=== PATIENT | female | born 1940 | race Caucasian/White ===

== ENCOUNTER 2020-07-02 11:45 | Outpatient (CLI) | payer MEDICARE, SELFPAY ==
--- NOTE | ~2020-07-02 | MR_ITS ---
EXAMINATION: MR knee LT wo/w con DATE: 07/02/2020 13:00 INDICATION: Left knee pain TECHNIQUE: Magnetic resonance imaging (MRI) of the left knee was performed without intravenous contra st. Sequences included coronal PD-weighted FSE, coronal PD-weighted FS FSE, sagittal T2-weighted FSE , sagittal PD-weighted FS FSE and axial PD weighted fat saturated FSE. COMPARISON: None. FINDINGS: Medial compartment: There is a radial tear extending across inner half of the posterior horn of the medial meniscus. Part ial-thickness cartilage loss with relatively smooth chondral surface along the medial tibial plateau and with regions of mild chondral surface regularity at the anterior weightbearing medial femoral con dyle. Small to moderate-sized marginal osteophytes are present. Lateral compartment: Complex tear of the anterior and posterior horns of the medial meniscus. The lateral meniscal body is deformed and extruded peripherally beyond the margin of the lateral tibial plateau and a large august nal osteophyte along the anterior weightbearing lateral femoral condyle. There is extensive full and near full-thickness cartilage loss throughout the lateral compartment with region of eburnation subar ticular edema with suggestion of early cortical remodeling at the central to posterior aspect of the lateral tibial plateau and along the arteries of the anterior, central and posterior weightbearing la teral femoral condyle. Patellofemoral compartment: Extensive full and near full-thickness cartilage loss with cortical remodeling and scattered foci of subarticular edema along the lateral trochlea and lateral patellar facet. Partial-thickness cartilage loss with chondral fissuring and surface regularity at the medial trochlea and medial patellar facet . Moderate sized marginal osteophytes are present. Ligaments and tendons: Anterior and posterior cruciate ligaments are normal. The medial collateral ligament and fibular sylvester ateral ligament complex are normal. Enthesophytes and mild enthesopathy/tendinopathy at the distal qu adriceps tendon and at the patellar and tibial ends of the patellar tendon. The visualized medial and lateral hamstring tendons as well as the iliotibial band are normal. Fluid: Mild enhancing synovitis at the periphery of a small left knee joint effusion at the suprapatellar po uch. No loose osteochondral bodies identified. Mild prepatellar edema without discrete bursal fluid c ollection. Osseous/other: Patchy red marrow reexpansion in the distal metadiaphyseal region of the femur. Aside from the previo us noted degenerative subarticular increased fluid signal there is otherwise normal marrow signal wit h no fracture or pathologic marrow replacing process. IMPRESSION: 1. Small radial tear at the posterior horn of the medial meniscus. 2. Complex lateral meniscal tear with prominent peripheral extrusion of the meniscal body. 3. Tricompartment osteoarthritis, severe with extensive high-grade chondral malacia in the lateral an d patellofemoral compartments and mild with moderate grade chondromalacia in the medial compartment. 4. Mild enthesopathy of the extensor mechanism. 5. Likely reactive small left knee joint effusion. Reviewed, dictated and finalized at location A. IMPRESSION: 1. Small radial tear at the posterior horn of the medial meniscus. 2. Complex lateral meniscal tear with prominent peripheral extrusion of the men iscal body. 3. Tricompartment osteoarthritis, severe with extensive high-grade chondral mal acia in the lateral and patellofemoral compartments and mild with moderate grad e chondromalacia in the medial compartment. 4. Mild enthesopathy of the extensor mechanism. 5. Likely reactive small left knee joint effusion.
[2020-07-02 12:27] LABS: Estimated Glomerular Filt Rate > 60
== END 2020-07-02 11:46 ==
LOC: MICIMG 11:46
PROVIDERS: Visit Provider Nurse Practitioner
DX: S83.232A Complex tear of medial meniscus, current injury, left knee, initial encounter (principal); M17.32 Unilateral post-traumatic osteoarthritis, left knee; S83.242A Other tear of medial meniscus, current injury, left knee, initial encounter; M25.462 Effusion, left knee
CPT/HCPCS: 73723; A9577

== ENCOUNTER 2020-07-18 09:05 | Outpatient (CLI) | payer MEDICARE, SELFPAY ==
--- NOTE | 2020-07-18 | ECG_ITS ---
Measurements Intervals [place] Rate: 75 P: 47 WV: 202 QRS: -1 QRSD: 105 T: 36 QT: 401 QTc: 449 Interpretive Statements SINUS RHYTHM WITH SINUS ARRHYTHMIA INCOMPLETE RIGHT BUNDLE BRANCH BLOCK LOW QRS VOLTAGE IN PRECORDIAL LEADS BASELINE ARTIFACT- II, III BORDERLINE ECG Electronically Signed On 07-18-2020 10:06:04 CDT by Tyshawn Marin D.O.
[2020-07-18 09:28] LABS: Basophils Absolute Auto 0.1 K/mm3 (0.0-0.1); Basophils Percent Auto 0.9 % (0.2-1.2); Eosinophils Absolute Auto 0.4 K/mm3 (0-0.3); Eosinophils Percent Auto 3.4 % (0-4.4); Hematocrit 40.1 % (37.0-47.0); Hemoglobin 12.5 g/dL (12.0-15.0); Immature Granulocyte Absolute 0.06 K/mm3 (0.00-0.031); Immature Granulocyte Percent A 0.5 % (0-0.5); Lymphocytes Absolute Auto 3.78 K/mm3 (0.9-3.2); Lymphocytes Percent Auto 32.3 % (18.3-44.2); Mean Corpuscular HGB Conc 31.2 g/dl (32-36); Mean Corpuscular Hemoglobin 28.8 pg (26-34); Mean Corpuscular Volume 92.4 fl (80-100); Mean Platelet Volume 9.1 fl (7.4-10.4); Monocytes Absolute Auto 0.8 K/mm3 (0.1-0.6); Monocytes Percent Auto 6.8 % (2.6-8.5); Neutrophils Absolute Auto 6.6 K/mm3 (1.3-6.7); Neutrophils Percent Auto 56.1 % (45.5-73.1); Platelet Count Result 392 k/mm3 (150-375); Red Blood Count 4.34 M/mm3 (4.2-5.4); Red Cell Distribution Width 15.6 % (11.5-14.5); White Blood Count 11.7 K/mm3 (4.5-10.0)
[2020-07-18 09:38] LABS: Alanine Aminotransferase 17 U/L (4-35); Albumin Level 4.1 g/dL (3.5-5.1); Alkaline Phosphatase 51 U/L (38-126); Anion Gap 7 mmol/L (8-16); Aspartate Amino Transferase 34 U/L (14-36); Bilirubin,Total 0.5 mg/dL (0.2-1.3); Blood Urea Nitrogen 16 mg/dL (7-17); Calcium 9.5 mg/dL (8.4-10.2); Carbon Dioxide 28 mmol/L (22-30); Chloride 106 mmol/L (98-107); Cholesterol 231 mg/dL (0-200); Estimated Glomerular Filt Rate 60; Glucose 94 mg/dL (65-105); HDL Direct 56 mg/dL; Potassium 4.7 mmol/L (3.4-5.0); Sodium 141 mmol/L (137-145); Triglycerides 153 mg/dL (<150)
[2020-07-18 09:49] LABS: LDL Cholesterol Direct 109 mg/dL
== END 2020-07-18 09:06 | disposition home or self-care (01) ==
PROVIDERS: PCP Family Medicine; Visit Provider Family Medicine
DX: E78.5 Hyperlipidemia, unspecified (principal); Z01.810 Encounter for preprocedural cardiovascular examination; F41.8 Other specified anxiety disorders; I10 Essential (primary) hypertension; I45.10 Unspecified right bundle-branch block
CPT/HCPCS: 36415; 80053; 80061; 84443; 85025; 93005

== ENCOUNTER 2020-07-26 14:50 | Outpatient (CLI) | payer MEDICARE, SELFPAY ==
--- NOTE | ~2020-07-26 | US_ITS ---
EXAMINATION: US carotid duplex BI DATE: 07/26/2020 15:32 INDICATION: Other specified symptoms and signs involving the circulatory and respiratory systems. TECHNIQUE: Grayscale, color Doppler, and pulsed Doppler images of the cervical carotid arteries were obtained. The degree of vessel stenosis is placed in one of the following categories: normal, <50%, 5 0-69%, >=70% but less than near-occlusion, near-occlusion, or total occlusion. Note that percent sten osis relative to normal distal artery lumen diameter is indirectly measured from velocity measurement s as described by Taiwo, et al. Radiology 2003; 229:340-346. COMPARISON: None. FINDINGS: RIGHT: The right common carotid artery (CCA) peak systolic velocity (PSV) is 99 cm/s. The right internal car otid artery (ICA) PSV is 72 cm/s. The right ICA end-diastolic velocity (EDV) is 19 cm/s. The right IC A/CCA PSV ratio is 0.8. Grayscale and color Doppler images yield an estimate of <50% diameter reducti on from plaque in the ICA. There is antegrade flow in the right vertebral artery. LEFT: The left CCA PSV is 89 cm/s. The left ICA PSV is 83 cm/s. The left ICA EDV is 23 cm/s. The left ICA/C CA PSV ratio is 0.9. Grayscale and color Doppler images yield an estimate of <50% diameter reduction from plaque in the ICA. There is antegrade flow in the left vertebral artery. IMPRESSION: 1. <50% stenosis in the right internal carotid artery. 2. <50% stenosis in the left internal carotid artery. Reviewed, dictated and finalized at location A.
== END 2020-07-26 14:51 | disposition home or self-care (01) ==
PROVIDERS: PCP Family Medicine; Visit Provider Nurse Practitioner Family
DX: R09.89 Other specified symptoms and signs involving the circulatory and respiratory systems (principal); I65.23 Occlusion and stenosis of bilateral carotid arteries
CPT/HCPCS: 93880

== ENCOUNTER 2020-08-19 08:05 | Outpatient (CLI) | payer MEDICARE, SELFPAY ==
[2020-08-19 09:53] LABS: Basophils Absolute Auto 0.1 K/mm3 (0.0-0.1); Basophils Percent Auto 0.6 % (0.2-1.2); Eosinophils Absolute Auto 0.3 K/mm3 (0-0.3); Eosinophils Percent Auto 2.3 % (0-4.4); Hematocrit 44.7 % (37.0-47.0); Hemoglobin 13.6 g/dL (12.0-15.0); Immature Granulocyte Absolute 0.06 K/mm3 (0.00-0.031); Immature Granulocyte Percent A 0.4 % (0-0.5); Lymphocytes Absolute Auto 3.59 K/mm3 (0.9-3.2); Lymphocytes Percent Auto 26.1 % (18.3-44.2); Mean Corpuscular HGB Conc 30.4 g/dl (32-36); Mean Corpuscular Hemoglobin 28.5 pg (26-34); Mean Corpuscular Volume 93.7 fl (80-100); Mean Platelet Volume 9.4 fl (7.4-10.4); Monocytes Absolute Auto 0.8 K/mm3 (0.1-0.6); Neutrophils Absolute Auto 8.9 K/mm3 (1.3-6.7); Neutrophils Percent Auto 64.6 % (45.5-73.1); Platelet Count Result 403 k/mm3 (150-375); Red Blood Count 4.77 M/mm3 (4.2-5.4); Red Cell Distribution Width 15.6 % (11.5-14.5); White Blood Count 13.7 K/mm3 (4.5-10.0)
[2020-08-19 09:56] LABS: Add Urine Microscopic? YES; Appearance Urine Cloudy (Clear); Bilirubin Urine Negative (Negative); Blood Urine Negative (Negative); Color Urine Amber (Yellow); Glucose Urine UA Negative (Negative); Ketones Urine Negative (Negative); Leukocyte Esterase Ur 2+ LEU/UL (Negative); Mucus Urine Few /lpf; Nitrate Urine Negative (Negative); Protein Urine 1+ mg/dL (Negative); RBC Urine 0-2 /hpf (0-2); Specific Grav Ur 1.028 (1.001-1.035); Squamous Epithelial Cell Urine Moderate /hpf (Few); Urobilinogen Urine Negative mg/dL (<2.0); WBC Urine 21-30 /hpf
[2020-08-19 10:01] LABS: INR 0.9; Prothrombin Time 12.4 Seconds (11.1-14.7)
[2020-08-19 10:02] LABS: Partial Thromboplastin Time 29.7 SECONDS (22.3-36.8)
[2020-08-19 11:37] LABS: Hemoglobin A1C 5.7 % (<5.7)
[2020-08-19 11:53] LABS: Urine Cotinine NEGATIVE
== END 2020-08-19 08:06 | disposition home or self-care (01) ==
LOC: ANHSURGERY 08:08
PROVIDERS: PCP Family Medicine; Visit Provider Orthopaedic Surgery
DX: M17.12 Unilateral primary osteoarthritis, left knee (principal); Z01.818 Encounter for other preprocedural examination
CPT/HCPCS: 80307; 81001; 83036; 85025; 85610; 85730; 86850; 86900; 86901; 87081; 87086; 87088

== ENCOUNTER 2020-09-05 10:09 | Outpatient (CLI) | payer MEDICARE, SELFPAY ==
--- NOTE | 2020-09-05 | EST_ITS ---
Patient Info Name: Nikia East Age: 80 years : 1940 Gender: Female Ht: 65 in Wt: 205 lbs BSA: 2.10 m2 Exam Date: 09/05/2020 11:44 AM Exam Location: [facility] Stress Patient Status: Outpatient Admit Date: 09/05/2020 Staff Ordering Physician: Felix Landeros MD Attending Provider: Felix Landeros MD Exercise Technologist: Foster Lerma RDCS, RT Exam Type: CA stress fco w NM Study Info A regadenoson stress test was performed. Summary 1. 1. Negative lexiscan stress test for ischemic ST changes by ECG criteria. 2. 2. Baseline hypertension. 3. 3. Nuclear scan to follow and will be reported separately. Please correlate with it. 4. 4. Patient informed of the above results. Protocol: Lexiscan Stress ECG Details Stage: REST Duration (min): 1 min : 6 sec HR (bpm): 82 SBP (mmHg): 161 DBP (mmHg): 94 Stage: REST Duration (min): 14 min : 51 sec HR (bpm): 80 SBP (mmHg): 161 DBP (mmHg): 94 Stage: STAGE 1 Duration (min): 0 min : 59 sec HR (bpm): 91 SBP (mmHg): 161 DBP (mmHg): 94 Stage: RECOVERY Duration (min): 1 min : 0 sec HR (bpm): 94 SBP (mmHg): 184 DBP (mmHg): 79 Stage: RECOVERY Duration (min): 2 min : 0 sec HR (bpm): 88 SBP (mmHg): 184 DBP (mmHg): 79 Stage: RECOVERY Duration (min): 3 min : 0 sec HR (bpm): 84 SBP (mmHg): 173 DBP (mmHg): 82 Stage: RECOVERY Duration (min): 3 min : 16 sec HR (bpm): 84 SBP (mmHg): 173 DBP (mmHg): 82 Rest HR: 80 bpm Peak HR: 95 bpm Rest Sys BP: 161 mmHg Peak Sys BP: 184 mmHg Max Pred HR: 140 bpm % Max Pred HR: 68 % Target HR: 119 bpm Max RPP: 17,480 bpm*mmHg Termination Reason: Completed protocol Cardiac Symptoms: Shortness of breath Total Time: 1 min : 0 sec Rest Clark BP: 94 mmHg Peak Clark BP: 79 mmHg Total Dose: 0.4 mg Resting ECG Sinus rhythm, IRBBB. Stress ECG No ST changes. Arrhythmias None. Report Signatures
--- NOTE | ~2020-09-05 | NM_ITS ---
EXAMINATION: NM fco stress w perfusion DATE: 09/05/2020 13:23 INDICATION: Encounter for preprocedural cardiovascular examination. Hypertension and abnormal EKG inc luding incomplete right bundle branch block. TECHNIQUE: Rest images were obtained following intravenous administration of 10 mCi Tc99m tetrofosmin (Myoview). The patient was infused intravenously with Lexiscan (Regadenoson). Then, 31.8 mCi Tc99m t etrofosmin (Myoview) was administered intravenously, and stress images were obtained. Data was recons tructed into short axis and horizontal and vertical long axis SPECT images. Gated SPECT images were a lso obtained. COMPARISON: None. FINDINGS: There is no definite reversible or fixed perfusion abnormality to suggest ischemia or infar ction. There is normal left ventricular chamber size, wall motion and ejection fraction. Left ventr icular ejection fraction measures >70%. IMPRESSION: 1. Normal myocardial perfusion at rest and during stress. 2. Left ventricular ejection fraction measuring >70%. Reviewed, dictated and finalized at location A.
== END 2020-09-05 10:10 | disposition home or self-care (01) ==
PROVIDERS: PCP Family Medicine; Visit Provider Family Medicine
DX: Z01.810 Encounter for preprocedural cardiovascular examination (principal)
CPT/HCPCS: 78452; 93017; A9502; J2785

== ENCOUNTER 2020-09-30 13:14 | Outpatient (CLI) | payer MEDICARE, SELFPAY ==
[2020-09-30 13:45] LABS: Basophils Absolute Auto 0.1 K/mm3 (0.0-0.1); Basophils Percent Auto 0.9 % (0.2-1.2); Eosinophils Absolute Auto 0.5 K/mm3 (0-0.3); Eosinophils Percent Auto 3.6 % (0-4.4); Hematocrit 45.9 % (37.0-47.0); Hemoglobin 13.9 g/dL (12.0-15.0); Immature Granulocyte Percent A 0.7 % (0-0.5); Lymphocytes Absolute Auto 4.57 K/mm3 (0.9-3.2); Lymphocytes Percent Auto 32.9 % (18.3-44.2); Mean Corpuscular HGB Conc 30.3 g/dl (32-36); Mean Corpuscular Hemoglobin 28.6 pg (26-34); Mean Corpuscular Volume 94.4 fl (80-100); Mean Platelet Volume 9.1 fl (7.4-10.4); Monocytes Absolute Auto 0.9 K/mm3 (0.1-0.6); Monocytes Percent Auto 6.6 % (2.6-8.5); Neutrophils Absolute Auto 7.7 K/mm3 (1.3-6.7); Neutrophils Percent Auto 55.3 % (45.5-73.1); Platelet Count Result 400 k/mm3 (150-375); Red Blood Count 4.86 M/mm3 (4.2-5.4); Red Cell Distribution Width 15.5 % (11.5-14.5); White Blood Count 13.9 K/mm3 (4.5-10.0)
[2020-09-30 13:55] LABS: Albumin Level 4.8 g/dL (3.5-5.1); Anion Gap 12 mmol/L (8-16); Blood Urea Nitrogen 17 mg/dL (7-17); Calcium 10.5 mg/dL (8.4-10.2); Carbon Dioxide 29 mmol/L (22-30); Chloride 104 mmol/L (98-107); Estimated Glomerular Filt Rate 53; Glucose 93 mg/dL (65-105); Sodium 145 mmol/L (137-145)
[2020-09-30 16:16] LABS: Add Urine Microscopic? YES; Appearance Urine Cloudy (Clear); Bacteria Urine Trace /hpf; Bilirubin Urine 2+ (Negative); Blood Urine Negative (Negative); Color Urine Amber (Yellow); Glucose Urine UA Negative (Negative); Hyaline Casts Urine 50+ /lpf; Ketones Urine Negative (Negative); Leukocyte Esterase Ur Trace LEU/UL (Negative); Mucus Urine Few /lpf; Nitrate Urine Negative (Negative); Protein Urine 2+ mg/dL (Negative); RBC Urine 0-2 /hpf (0-2); Squamous Epithelial Cell Urine Many /hpf (Few)
[2020-09-30 16:18] LABS: Specific Grav Ur 1.039 (1.001-1.035)
== END 2020-09-30 13:15 | disposition home or self-care (01) ==
PROVIDERS: PCP Family Medicine; Visit Provider Orthopaedic Surgery
DX: M17.12 Unilateral primary osteoarthritis, left knee (principal); Z01.818 Encounter for other preprocedural examination
CPT/HCPCS: 36415; 80048; 81001; 82040; 85025; 86850; 86900; 86901; 87081; 87086; 87088

== ENCOUNTER 2020-10-09 18:42 | Observation (INO) | payer MEDICARE, SELFPAY ==
[2020-08-19 08:17] VITALS: BMI 34.9
[2020-08-19 09:13] VITALS: BP 135/79; PULSE 80; RESP 16; TEMP 36.8; O2SAT 96
--- NOTE | 2020-09-27 09:59 | PC.NURSE ---
PT STATES NO CHANGE IN HEALTH HX SINCE LAST INTERVIEW ON 08/19/20
[2020-10-08] VITALS (16 sets, daily range): BP systolic 120–184; BP diastolic 65–99; PULSE 75–92; RESP 10–21; TEMP 35.7–37.9; O2SAT 94–100
[2020-10-08] MEDS: ACETAMINOPHEN 500 MG TABLET 1000 MG PO (06:23)
--- NOTE | 2020-10-08 06:41 | WPDANESEPPF ---
Anes - Initial Pre Proc Eval Procedure: Operation Date: 10/08/20 07:30 Proposed Procedures p Left Total Knee Arthroplasty - Ean Dan MD Date/Time: 10/08/20 06:41 Surgeon: Ean Dan MD Pre Op Diagnosis: left knee djd Patient Data Age: 80 Gender: F Height: 1.64 m Weight: 93.1 kg Last Vital Signs Temp 37.1 C 10/08/20 06:07 Pulse 84 10/08/20 06:07 Resp 16 10/08/20 06:07 BP 155/85 H 10/08/20 06:07 Pulse Ox 96 10/08/20 06:07 Allergies Allergy/AdvReac Type Severity Reaction Status Date / Time No Known Allergies Allergy Verified 10/08/20 06:24 Home Medications Medication Instructions Recorded Confirmed Type gabapentin 100 mg capsule 100 mg PO BID 02/27/19 10/08/20 History naproxen 500 mg tablet 500 mg PO BID PRN #60 tablet 06/12/20 10/08/20 Rx trazodone 100 mg tablet See Rx Instructions .ROUTE 06/13/20 10/08/20 Rx .COMPLEX #45 tablet baclofen 20 mg tablet 20 mg PO TID tablet 07/16/20 10/08/20 History hydrocodone 10 mg-acetaminophen 1 tablet PO Q6H PRN 07/16/20 10/08/20 History 325 mg tablet ropinirole 1 mg tablet See Rx Instructions .ROUTE 07/16/20 10/08/20 History .COMPLEX tablet simvastatin 20 mg tablet See Rx Instructions .ROUTE 07/18/20 10/08/20 Rx .COMPLEX #90 tablet lisinopril 10 mg tablet See Rx Instructions .ROUTE 07/26/20 10/08/20 Rx .COMPLEX #90 tablet aspirin 325 mg PO DAILY 08/19/20 10/08/20 History vit-ferrous sulfat-FA 2 tablet PO DAILY 08/19/20 10/08/20 History [] vitamin B complex [B Complex] 1 cap PO DAILY 08/19/20 10/08/20 History levothyroxine 75 mcg tablet 75 mcg PO DAILY #90 tablet 09/10/20 10/08/20 Rx duloxetine 60 mg PO QNOON 09/27/20 10/08/20 History furosemide 20 mg tablet 20 mg PO DAILY #90 tablet 09/27/20 10/08/20 Rx amoxicillin 500 mg capsule 500 mg PO BID #20 cap 10/01/20 10/08/20 Rx mupirocin 2 % topical ointment 1 applic TOPICAL BID #15 g 10/02/20 10/08/20 Rx Patient hx anesthesia problems: none Family hx anesthesia problems: none [facility] Past Medical History Medical History Arthritis Constipation Depression with anxiety Dysphagia Essential (primary) hypertension Generalized anxiety disorder High cholesterol Hoarseness Hyperlipidemia, unspecified Hypertension Hypothyroidism, unspecified Insomnia Restless legs syndrome Sleep disorder Urinary frequency Wears glasses Surgical History Surgical History History of back surgery History of foot surgery Left foot 2014 Status post right foot surgery (~11/2018) Family History Family History Father Family history of pancreatic cancer Other Asthma Family history of malignant neoplasm of breast in first degree relative Family history of migraine headaches Social History Social History Smoking status: Never smoker Additional smoking assessment comments: DENIES ANY FORM OF TOBACCO USE Alcohol intake: never Substance use: never Substance use type: does not use Living arrangements: with family Gender identity (if verbalized by the patient): Female Spiritual care concerns: No Anes - Eval Final PreProcedure Day of Procedure 10/08/20 06:41 Patient weight: obese Heart: regular rate and rhythm Lungs: clear to auscultation Airway: Mallampati scale class II Neurological: alert and oriented Last oral intake: >/= 8 hours ASA classification: III Emergent: no Anesthetic plan: proceed Anesthesia type and monitoring: general LMA and standard monitoring Informed Consent: The patient's anesthetic plan and its attendant risks and benefits were discussed with the patient/family/POA. Questions were solicited and answers provided to the satisfaction of the patient/family/POA.
[2020-10-08] MEDS: LACTATED RINGERS 1,000 ML 30 ML IV CONT ×2 (06:43→10:26)
--- NOTE | 2020-10-08 07:22 | WPDHPUPDATE1 ---
History and Physical Update Update Date/Time: 10/08/20 07:22 History and Physical has been reviewed, including an updated exam of the patient. There are NO changes in the patient's condition. Risks, benefits, and alternatives have been discussed and questions answered. Patient agrees to proceed with procedure.
[2020-10-08] MEDS: TRANEXAMIC ACID 1,000MG/ISO100 1,000 MG/100 ML BAG 200 MG IVPB (07:30)
--- NOTE | 2020-10-08 07:43 | WPDANESPNB ---
Anes - Peripheral Nerve Block Date/Time: 10/08/20 07:43 I have discussed with the patient/family/POA the placement of a peripheral nerve block for post-operative pain management, including associated risks, benefits, complications, and side effects. Alternative methods of post-operative analgesia were detailed. Questions were solicited and answers provided to the satisfaction of the patient/family/POA. Time-Out: A pre-procedural Time-Out was completed immediately before starting the procedure and confirmed: Patient Identification, Site, Procedure, Patient Position and the Availability of Requisite Equipment. Clinical Indications: Acute post-operative pain management requested by the operative surgeon. Nerve Block Insertion Note Anes-nerve block: femoral left Patient position: supine Needle: 22 gauge, stimulating, insulated echogenic needle. Needle length: 50 mm Technique: nerve stimulation lost at (mA) (0.4) Injectate: bupivacaine 0.5% with epi 5 mcg/ml (30cc) Observations: tolerated well Complications: none Procedure start time:: 747 Procedure end time:: 741
[2020-10-08] MEDS: ceFAZolin 2 GM/D5W 50 ML 2 GM/50 ML BAG IVPB ×3 (07:46→23:40)
[2020-10-08] MEDS: GENTAMICIN BONE CEMENT REFOBACIN 1 EACH TOPICAL (09:03)
--- NOTE | 2020-10-08 09:04 | SUR.OPER ---
Biomet Bone Cement Bar x 1 mixed with Refobacin Bone Cement R x 1 on Sterile Field
[2020-10-08] MEDS: TRANEXAMIC ACID 1,000 MG/10 ML AMPUL 1000 MG IV PUSH (09:28)
--- NOTE | 2020-10-08 10:34 | W.PM.PROC2 ---
Procedure Note - Detailed Date of Procedure 10/08/20 Pre-op Diagnosis left knee djd Post-op Diagnosis same Procedure Performed L TKA Surgeon Ean Dan MD Anesthesia general Description of Procedure THE LEFT KNEE WAS PREPPED AND DRAPED IN THE STERILE FASHION. THERE WAS A 10 DEGREE FLEXION CONTRACTURE. A MIDLINE SKIN INCISION WAS MADE. A MEDIAL PARAPATELLAR ARTHROTOMY WAS MADE. THE PATELLA WAS EVERTED. THERE WAS TRICOMPARTMENT DJD. THERE WAS MINIMAL PATELLA DJD. AN INTRAMEDULLARY COMPA WAS PLACED IN THE FEMUR. A DISTAL FEMORAL CUT WAS MADE IN 5 DEGREES OF VALGUS REMOVING APPROXIMATELY 9 MM OF BONE FROM THE DISTAL FEMUR. THE FEMUR WAS SIZED TO 62.5. A 62.5 FEMORAL CUTTING BLOCK WAS PLACED IN 3 DEGREES OF EXTERNAL ROTATION AND IN ALIGNMENT WITH NARCISA'S LINE AND THE TRANSEPICONDYLAR AXIS. ANTERIOR POSTERIOR AND CHAMFER CUTS WERE MADE. THE CUTS WERE EXCELLENT. NEXT AN INTRAMEDULLARY CUTTING GUIDE WAS PLACED IN THE TIBIA. A TRANS TIBIAL CUT WAS MADE ALONG THE LONG AXIS OF THE TIBIA. APPROXIMATELY 10 MM OF BONE WAS REMOVED FROM THE HIGH SIDE OF THE TIBIA. THE TIBIA WAS THEN PLANED TO A SMOOTH SURFACE. POSTERIOR FEMORAL OSTEOPHYTES WERE REMOVED FROM THE FEMORAL CONDYLES. A 67 TIBIAL TRIAL WAS PLACED IN ALIGNMENT WITH THE 1/3 MEDIAL ASPECT OF THE TIBIAL TUBERCLE. THEN A 62.5 FEMORAL TRIAL COMPONENT WAS PLACED. BOTH HAD EXCELLENT FITS. EVENTUALLY A 12 MM POLYETHYLENE TRIAL COMPONENT WAS PLACED. THE KNEE WAS TAKEN THROUGH A RANGE OF MOTION. THE KNEE CAME OUT TO FULL EXTENSION. THERE WAS NO ABNORMAL TILT TO THE PATELLA. THERE WAS GOOD A/P AND VARUS/VALGUS STABILITY. THERE WAS NO EXCESSIVE ROLL BACK WITH FLEXION. THE TRIAL COMPONENTS WERE REMOVED. THEN A 62.5 FEMORAL COMPONENT AND 67 TIBIAL COMPONENT WITH A 12 POLYETHYLENE COMPONENT WERE CEMENTED INTO PLACE. ONCE THE CEMENT WAS HARD THE KNEE WAS TAKEN THROUGH A ROM AGAIN AND FOUND TO BE STABLE WITH NO PATELLA TILT NO EXCESSIVE ROLL BACK WITH FLEXION AND GOOD STABILITY WITH COMPLETE AND FULL EXTENSION. THE KNEE WAS IRRIGATED WITH STERILE BETADINE AND WATER FOR ABOUT 3 MINUTES. THE BLEEDERS WERE CAUTERIZED. THE ARTHROTOMY WAS REPAIRED WITH NUMBER 1 VICRYL. THE SUB CUTANEOUS LAYER WITH 2-0 VICRYL AND THE SKIN WITH [place]. THE WOUND WAS WASHED AND A STERILE DRESSING WAS APPLIED. PATIENT WAS EXTUBATED. Estimated Blood Loss -200.0 Pathology none sent Complications No immediate complications Condition stable Disposition PACU
[2020-10-08] MEDS: fentaNYL CITRATE INJ (*CRX) 100 MCG/2 ML VIAL 25 MCG IV PUSH ×5 (10:35→11:09)
--- NOTE | 2020-10-08 11:59 | ADMGEN ---
This patient, Nikia East, was admitted to Medical Room 246-01. Patient/family oriented to hospital policies and general routines including ID bracelet, bed and alarms, visiting hours, pain management, procedures, bathroom and other care routines, personal items, smoking policy, room service/diet, and visiting hours. Information on how to activate the Rapid Response Team has been discussed. Patient/Family are encouraged to report perceived risks to care and to ask questions if they do not understand what they are told or what they should do.
[2020-10-08] MEDS: oxyCODONE HCL (*CRX) 5 MG TAB IR 10 MG PO ×3 (13:54→23:40)
--- NOTE | 2020-10-08 14:30 | WPDCN ---
Assessment and Plan Assessment and plan (1) Degenerative joint disease of left knee: Code(s): M17.12 - Unilateral primary osteoarthritis, left knee Status: Acute Assessment and Plan: Postoperative day 0 status post left total knee arthroplasty. Wound care, pain control, and DVT prophylaxis deferred to Dr. Dan. Agree with early ambulation and physical therapy. Baseline labs in a.m. (2) Hypertension: Code(s): I10 - Essential (primary) hypertension Status: Chronic Assessment and Plan: Blood pressures reviewed. Elevated postoperatively likely due to pain but have improved. Resume antihypertensives and monitor. (3) Hyperlipidemia: Code(s): E78.5 - Hyperlipidemia, unspecified Status: Acute Assessment and Plan: Continue statin check LFTs in a.m. (4) Hypothyroidism: Code(s): E03.9 - Hypothyroidism, unspecified Status: Acute Assessment and Plan: Continue levothyroxine. TSH was normal in April 2020. (5) Depression with anxiety: Code(s): F41.8 - Other specified anxiety disorders Status: Acute Assessment and Plan: Continue duloxetine. Additional Plan Thank you for allowing us to participate in this patient's care. Please do not hesitate to contact us with any questions. Supervising physician for this medical consultation is Dr. Osmel Sotomayor. HPI Data of Consult Date/Time: 10/08/20 14:30 Requesting Physician: Ean Dan MD Primary Care Provider: Malathi Landeros MD Consult Narrative Narrative: This is an 80-year-old female with degenerative joint disease, hypertension, hyperlipidemia, and hypothyroidism whom hospitalist service has been consulted for management of her medical conditions postoperatively. She has had longstanding pain in her left knee, not amenable to conservative outpatient treatment, and less she elected for replacement today. Her surgery was performed under general anesthesia with no immediate complications documented and an estimated blood loss of 200 mL. She has been doing well postoperatively and has been up to the chair and working with physical therapy. She has minimal pain at the time my evaluation. She denies paresthesias, skin color, and temperature changes distal to the surgical site. She also denies postoperative fever, chills, chest pain, shortness of breath, nausea, and vomiting. Review of Systems Review of Systems: Narrative: Twelve systems were reviewed with pertinent positives and negatives as per HPI. No fever, chills, or sweats. No recent cold or flu symptoms. She denies exposure to those positive for COVID-19. No exertional chest pain or shortness of breath. No history of venous thromboembolism. She believes her chronic medical conditions are well controlled on home medication. except as documented, all other systems were reviewed and are negative. [facility] Past Medical History Medical History (Updated 10/08/20 @ 14:39 by Bianca Grande PA-C) Arthritis Chronic back pain Degenerative disc disease Depression with anxiety Hyperlipidemia Hypertension Hypothyroidism Insomnia Restless legs syndrome Surgical History Surgical History (Updated 10/08/20 @ 14:38 by Bianca Grande PA-C) History of appendectomy History of back surgery Lumbar spine surgery for herniated disc. History of section History of cholecystectomy History of orthopedic surgery Status post left foot surgery ORIF left foot fracture in 2013. Status post right foot surgery (~11/2018) Family History Family History Father Family history of pancreatic cancer Family history of migraine headaches Daughter Asthma Sibling Family history of malignant neoplasm of breast in first degree relative Mother Family histo
[2020-10-08] MEDS: DULoxetine HCL 60 MG CAPSULE.DR PO (16:01)
[2020-10-08] MEDS: MUPIROCIN 2% OINT 22 GM TUBE 1 APPLIC TOPICAL (16:01)
[2020-10-08] MEDS: rOPINIRole HCL 1 MG TABLET BY MOUTH (16:01)
[2020-10-08] MEDS: CELECOXIB 200 MG CAPSULE PO (16:01)
[2020-10-08] MEDS: DOCUSATE SODIUM 100 MG CAPSULE PO (16:01)
[2020-10-08] MEDS: BACLOFEN 10 MG TABLET 20 MG PO (16:01)
[2020-10-08] MEDS: GABAPENTIN 100 MG CAPSULE PO (16:02)
[2020-10-08] MEDS: oxyCODONE/ACETAMINOPHEN (*CRX) 5-325 MG TABLET 1 TABLET PO (20:20)
[2020-10-08] MEDS: ASPIRIN 325 MG ENTERIC TABLET PO (21:22)
[2020-10-08] MEDS: FAMOTIDINE 20 MG TABLET PO (21:22)
[2020-10-08] MEDS: traZODone HCL 50 MG TABLET BY MOUTH (21:22)
[2020-10-09] VITALS (8 sets, daily range): BP systolic 110–136; BP diastolic 58–89; PULSE 94–102; RESP 14–20; TEMP 36.1–36.6; O2SAT 91–97
--- NOTE | ~2020-10-09 | XR_ITS ---
EXAMINATION: XR knee LT 2V DATE: 10/08/2020 10:38 INDICATION: Total left knee arthroplasty. Postop. TECHNIQUE: 2 views of left knee were obtained. COMPARISON: Left knee radiographs 07/08/20 FINDINGS: There is a total left knee arthroplasty without patellar resurfacing in near-anatomic align ment. No fracture. There is gas in the knee joint and soft tissues, consistent with recent surgery. A nterior skin elicia are noted. IMPRESSION: 1. Total left knee arthroplasty in near-anatomic alignment. Reviewed, dictated and finalized at location A.
--- NOTE | ~2020-10-09 | CT_ITS ---
EXAMINATION: CT brain wo con EXAM DATE: 10/09/2020 22:16 INDICATION: Temporary change in awareness. TECHNIQUE: Spiral CT of the head was performed without contrast. Axial, coronal and sagittal images were reviewed. The dose-length product (DLP) for this examination was 681.00 mGy-cm. The exposure w as tailored according to patient size, and iterative reconstruction (ASIR) was used as additional dos e reduction technique. There is no prior study for comparison. FINDINGS: There is no acute intraparenchymal hemorrhage. No evidence of intraparenchymal brain mass lesion. No evidence of acute infarction. Please note that initial head CT has limited sensitivity f or small or acute infarctions. There is mild periventricular and subcortical hypodensity, nonspecific but probably related to small vessel ischemic disease. There is mild to moderate prominence of the sulci and ventricles related to cerebral atrophy. There is intracranial carotid arteriosclerosis. There are no extra-axial collections. There is no mass effect or midline shift. Patient has had bi lateral ocular lens surgery. Soft tissue is unremarkable. The visualized sinuses and mastoid air ce lls are well aerated. IMPRESSION: 1. No acute intracranial findings. 2. Chronic age related findings. Reviewed, dictated and finalized at location A.
[2020-10-09] MEDS: oxyCODONE/ACETAMINOPHEN (*CRX) 5-325 MG TABLET 1 TABLET PO (05:09)
[2020-10-09] MEDS: LEVOTHYROXINE SODIUM 75 MCG TABLET PO (05:25)
[2020-10-09 06:18] LABS: Basophils Absolute Auto 0.1 K/mm3 (0.0-0.1); Basophils Percent Auto 0.5 % (0.2-1.2); Eosinophils Percent Auto 0.1 % (0-4.4); Hematocrit 38.5 % (37.0-47.0); Hemoglobin 11.8 g/dL (12.0-15.0); Immature Granulocyte Absolute 0.11 K/mm3 (0.00-0.031); Immature Granulocyte Percent A 0.7 % (0-0.5); Lymphocytes Absolute Auto 4.29 K/mm3 (0.9-3.2); Lymphocytes Percent Auto 26.8 % (18.3-44.2); Mean Corpuscular HGB Conc 30.6 g/dl (32-36); Mean Corpuscular Hemoglobin 28.9 pg (26-34); Mean Corpuscular Volume 94.1 fl (80-100); Mean Platelet Volume 9.5 fl (7.4-10.4); Monocytes Absolute Auto 1.9 K/mm3 (0.1-0.6); Monocytes Percent Auto 11.5 % (2.6-8.5); Neutrophils Absolute Auto 9.7 K/mm3 (1.3-6.7); Neutrophils Percent Auto 60.4 % (45.5-73.1); Platelet Count Result 342 k/mm3 (150-375); Red Blood Count 4.09 M/mm3 (4.2-5.4)
[2020-10-09 06:30] LABS: Alanine Aminotransferase 42 U/L (4-35); Albumin Level 3.9 g/dL (3.5-5.1); Alkaline Phosphatase 41 U/L (38-126); Anion Gap 9 mmol/L (8-16); Aspartate Amino Transferase 86 U/L (14-36); Bilirubin,Total 0.5 mg/dL (0.2-1.3); Blood Urea Nitrogen 19 mg/dL (7-17); Carbon Dioxide 23 mmol/L (22-30); Chloride 106 mmol/L (98-107); Estimated CRCL calculation 55 ml/min; Estimated Glomerular Filt Rate > 60; Glucose 112 mg/dL (65-105); Potassium 4.1 mmol/L (3.4-5.0); Sodium 138 mmol/L (137-145)
--- NOTE | 2020-10-09 07:39 | WPDANESPN ---
Anes - Prog Note Post-Op Date/Time: 10/09/20 07:39 Cardiovascular status: normal Respiratory status: normal Airway patency: baseline Mental status: baseline Post-Op hydration status: normal Vital Signs: Last Vital Signs Temp 36.1 C L 10/09/20 05:18 Pulse 98 10/09/20 05:18 Resp 18 10/09/20 05:18 BP 125/71 10/09/20 05:18 Pulse Ox 96 10/09/20 05:18 Pain Score (VAS): 3 I/O: Intake & Output 10/08/20 10/08/20 10/09/20 15:59 23:59 07:59 Intake Total 1240 540 440 Balance 1240 540 440 Laboratory Tests 10/09/20 05:32 10/09/20 05:32 10/09/20 10/09/20 05:32 05:32 WBC 16.0 H RBC 4.09 L Hgb 11.8 L Hct 38.5 MCV 94.1 MCH 28.9 MCHC 30.6 L RDW 16.0 H Plt Count 342 MPV 9.5 Immature Gran % (Auto) 0.7 H Neut % (Auto) 60.4 Lymph % (Auto) 26.8 Woodruff % (Auto) 11.5 H Eos % (Auto) 0.1 Baso % (Auto) 0.5 Lymph # (Auto) 4.29 H Woodruff # (Auto) 1.9 H Eos # (Auto) 0.0 Baso # (Auto) 0.1 Abs Immat Gran (auto) 0.11 H Absolute Neuts (auto) 9.7 H Absolute Nucleated RBC 0.0 Nucleated RBC % 0.0 Sodium 138 Potassium 4.1 Chloride 106 Carbon Dioxide 23 Anion Gap 9 BUN 19 H Creatinine 0.80 Estim Creat Clear Calc 55 Estimated GFR > 60 Glucose 112 H Calcium 9.0 Total Bilirubin 0.5 Direct Bilirubin 0.0 AST 86 H ALT 42 H Alkaline Phosphatase 41 Total Protein 7.0 Albumin 3.9 Post-procedural complaints: none Patient Feedback: Patient satisfied with anesthetic care.
--- NOTE | 2020-10-09 07:53 | PM.IMPN ---
Progress Note: A&P Assessment and Plan (1) Degenerative joint disease of left knee: Code(s): M17.12 - Unilateral primary osteoarthritis, left knee Status: Acute Assessment and Plan: Postoperative day 1 status post left total knee arthroplasty. Wound care, , and DVT prophylaxis deferred to Dr. Dan. pain control: Percocet 1 tab PO Q4hr , Oxycodone 10mg PO Q4hr, Acetaminophen 1000mg PO Q6hr PRN Antiemetic: Zofran 4mg IV Q4hr PRN Vancomycin 1000mg IV Q12hr, Cefazolin 2gm Q8hr DVT: Aspirin 325mg PO Q12hr PT/OT (2) Hypertension: Code(s): I10 - Essential (primary) hypertension Status: Chronic Assessment and Plan: Blood pressures 125/71 Continue home furosemide 20mg PO, Lisinopril 10mg PO Trend blood pressure Adjust medication as needed (3) Hyperlipidemia: Code(s): E78.5 - Hyperlipidemia, unspecified Status: Acute Assessment and Plan: Continue simvastatin 20mg PO daily Labs were high in July Will check in the am Adjust as needed (4) Hypothyroidism: Code(s): E03.9 - Hypothyroidism, unspecified Status: Acute Assessment and Plan: Continue levothyroxine 75mcg PO Daily. TSH 2.150 on 07/18/20 (5) Depression with anxiety: Code(s): F41.8 - Other specified anxiety disorders Status: Acute Assessment and Plan: Continue duloxetine 60mg PO Daily, Trazodone 50mg PO at HS Time Spent With Patient Time with patient: 25 - 35 minutes Subjective Date/time seen: 10/09/20 09:35 Interval history: This is an 80-year-old female with degenerative joint disease, hypertension, hyperlipidemia, and hypothyroidism whom hospitalist service has been consulted for management of her medical conditions postoperatively. Today is POD 1. She has been up to the bathroom and walked the snider already this morning. She complains of having some severe pain which she rates a 10/10. She is currently laying in bed, and just finished up with therapy. She does state that she has some constipation, which she stated she battles in general. I would say it is from the long time use of narcotics. She is looking real good and is planning to DC home with home health. She denies chest pain, shortness of breath, nausea, vomiting, decreased appetite, sweats, or chills. Review of Systems Review of Systems: All systems reviewed & are unremarkable except as noted in HPI and below Exam Const: General: cooperative, healthy appearing, comfortable, no acute distress, well developed, alert, awake and Physically active Nutritional Appearance: well nourished and overweight Orientation/consciousness: oriented to person, oriented to place, oriented to time and patient oriented x3 Limitations: no limitations HENMT: Head: normal to inspection Ears: hearing grossly normal bilaterally General nose exam: Normal external nose present Mouth: Yes Normal oral and palatal mucosa present, Yes lip normal and Yes tongue normal Teeth and gingiva: abnormal tooth and associated gingiva and poor dentition Eyes: General: appearance normal, both eyes and all related structures Neck: Neck: normal visual inspection, full ROM, trachea midline and supple Chest: Chest palpation & inspection: normal inspection of the chest Resp: Effort & Inspection: normal respiratory effort and able to speak in complete sentences Auscultation: clear to auscultation bilaterally Cardio: Jugular venous distension: no JVD Rate: regular rate Rhythm: regular rhythm Heart sounds: S1 normal heart sound present and S2 normal heart sound present Peripheral pulses: Peripheral pulses 2+ throughout GI: Inspection: normal to inspection GI Palp: Yes Soft to palpation and No Tenderness to palpation present (GI) Auscultation: normal bowel sounds Skin: General skin exam: normal color and no rashes or lesions noted Lesions: no lesions Rashes: no rashes Trauma: no lacerations or abrasions
[2020-10-09] MEDS: ceFAZolin 2 GM/D5W 50 ML 2 GM/50 ML BAG IVPB (08:49)
[2020-10-09] MEDS: CELECOXIB 200 MG CAPSULE PO ×2 (08:49→16:09)
[2020-10-09] MEDS: ASPIRIN 325 MG ENTERIC TABLET PO (08:49)
[2020-10-09] MEDS: rOPINIRole HCL 1 MG TABLET BY MOUTH ×2 (08:50→16:08)
[2020-10-09] MEDS: MUPIROCIN 2% OINT 22 GM TUBE 1 APPLIC TOPICAL ×2 (08:50→16:09)
[2020-10-09] MEDS: lisinopriL 10 MG TABLET BY MOUTH (08:50)
[2020-10-09] MEDS: BACLOFEN 10 MG TABLET 20 MG PO ×3 (08:50→16:09)
[2020-10-09] MEDS: FAMOTIDINE 20 MG TABLET PO (08:50)
[2020-10-09] MEDS: FUROSEMIDE 20 MG TABLET PO (08:50)
[2020-10-09] MEDS: SIMVASTATIN 20 MG TABLET BY MOUTH (08:50)
[2020-10-09] MEDS: VITAMIN B COMPLEX CAPSULE 1 CAP PO (08:50)
[2020-10-09] MEDS: GABAPENTIN 100 MG CAPSULE PO ×2 (08:50→16:09)
[2020-10-09] MEDS: DOCUSATE SODIUM 100 MG CAPSULE PO ×2 (08:50→16:09)
[2020-10-09] MEDS: oxyCODONE HCL (*CRX) 5 MG TAB IR 10 MG PO ×2 (09:42→13:43)
[2020-10-09] MEDS: DULoxetine HCL 60 MG CAPSULE.DR PO (12:06)
--- NOTE | 2020-10-09 16:19 | WPDPN ---
Progress Note: A&P Additional Plan POD 1 DOING WELL. SLOW PROGRESS WITH PT. CONT PT Exam Extrem: Other: VSS AFEBRILE DRESSING DRY NV INYACT NEG HOMANS SIGN CALF SOFT. Objective Data Vital Signs Vital Signs: Vital Signs - 24 hr 10/08/20 17:29 10/08/20 21:25 10/08/20 22:00 Temperature 37.9 C H 36.2 C L 36.2 C L Pulse Rate 92 76 76 Respiratory Rate 16 20 20 Blood Pressure 141/68 H 136/67 136/67 Pulse Oximetry 94 96 96 10/09/20 00:36 10/09/20 05:18 10/09/20 09:32 Temperature 36.3 C L 36.1 C L Pulse Rate 94 98 Respiratory Rate 18 18 Blood Pressure 136/62 125/71 Pulse Oximetry 91 96 92 10/09/20 10:00 10/09/20 14:30 Temperature 36.5 C 36.4 C Pulse Rate 99 102 H Respiratory Rate 16 14 Blood Pressure 124/62 119/60 Pulse Oximetry 96 93 Intake/Output Intake/Output: Intake & Output 10/06/20 10/07/20 10/08/20 10/09/20 23:59 23:59 23:59 23:59 Intake Total 1780 1340 Balance 1780 1340 Meds/Results Medications: Active Medications Generic Name Dose Route Start Last Admin Trade Name Freq PRN Reason Stop Dose Admin Acetaminophen 1,000 mg 10/08/20 11:44 Acetaminophen 500 Mg Tablet PO Q6H PRN Pain Rated 1-3 Aspirin 325 mg 10/08/20 21:00 10/09/20 08:49 Aspirin 325 Mg Enteric Tablet PO 325 mg Q12HR GERONIMO Administration Baclofen 20 mg 10/08/20 17:00 10/09/20 16:09 Baclofen 10 Mg Tablet PO 20 mg TID GERONIMO Administration Celecoxib 200 mg 10/08/20 17:00 10/09/20 16:09 Celecoxib 200 Mg Capsule PO 200 mg BIDWM GERONIMO Administration Diazepam 5 mg 10/08/20 11:44 Diazepam (*Crx) 5 Mg Tablet PO Q8H PRN Spasms Diphenhydramine HCl 25 mg 10/08/20 11:44 Diphenhydramine Hcl Inj 50 Mg/Ml Vial IV PUSH Q6H PRN Itching Docusate Sodium 100 mg 10/08/20 17:00 10/09/20 16:09 Docusate Sodium 100 Mg Capsule PO 100 mg BID GERONIMO Administration Duloxetine HCl 60 mg 10/08/20 17:00 10/09/20 12:06 Duloxetine Hcl 60 Mg Capsule.Dr PO 60 mg DAILY@1200 GERONIMO Administration Famotidine 20 mg 10/08/20 21:00 10/09/20 08:50 Famotidine 20 Mg Tablet PO 20 mg Q12HR GERONIMO Administration Furosemide 20 mg 10/09/20 09:00 10/09/20 08:50 Furosemide 20 Mg Tablet PO 20 mg DAILY GERONIMO Administration Gabapentin 100 mg 10/08/20 17:00 10/09/20 16:09 Gabapentin 100 Mg Capsule PO 100 mg BID GERONIMO Administration Levothyroxine Sodium 75 mcg 10/09/20 06:30 10/09/20 05:25 Levothyroxine Sodium 75 Mcg Tablet PO 75 mcg DAILY@0630 GERONIMO Administration Lisinopril 10 mg 10/09/20 09:00 10/09/20 08:50 Lisinopril 10 Mg Tablet BY MOUTH 10 mg DAILY GERONIMO Administration Mupirocin 1 applic 10/08/20 17:00 10/09/20 16:09 Mupirocin 2% Oint 22 Gm Tube TOPICAL 1 applic BID GERONIMO Administration Naloxone HCl 0.1 mg 10/08/20 11:44 Naloxone Hcl 0.4 Mg/Ml Vial IV PUSH Q2M PRN Opiate Reversal Ondansetron HCl 4 mg 10/08/20 11:44 Ondansetron Inj 4 Mg/2 Ml Vial IV PUSH Q4H PRN Nausea And Vomiting Oxycodone HCl 10 mg 10/08/20 11:44 10/09/20 13:43 Oxycodone Hcl (*Crx) 5 Mg Tab Ir PO 10 mg Q4H PRN Administration Pain Rated 7-10 Oxycodone/Acetaminophen 1 tablet 10/08/20 11:44 10/09/20 05:09 Oxycodone/Acetaminophen (*Crx) 5-325 Mg Tablet PO 1 tablet Q4H PRN Administration Pain Rated 4-6 Ropinirole HCl 1 mg 10/08/20 17:00 10/09/20 16:08 Ropinirole Hcl 1 Mg Tablet BY MOUTH 1 mg BID GERONIMO Administration Simvastatin 20 mg 10/09/20 09:00 10/09/20 08:50 Simvastatin 20 Mg Tablet BY MOUTH 20 mg DAILY GERONIMO Administration Trazodone HCl 50 mg 10/08/20 21:00 10/08/20 21:22 Trazodone Hcl 50 Mg Tablet BY MOUTH 50 mg HS GERONIMO Administration Vitamin B Complex 1 cap 10/09/20 09:00 10/09/20 08:50 Vitamin B Complex Capsule PO 1 cap DAILY GERONIMO Administration Radiology Results: ITS Impressions Knee X-Ray 10/08/20 10:39 IMPRESSION: 1.
[2020-10-09] MEDS: NALOXONE HCL 0.4 MG/ML VIAL IV PUSH ×2 (21:16→21:25)
--- NOTE | 2020-10-09 22:00 | P.PNCROSS_ITS ---
Event Note Event Note Event Note: I received a call from the patient's nurse, Dano, with an update around 2104. This afternoon she had episodes of confusion and slurred speech and is my understanding that was initially attributed to her narcotic pain medications although the hospitalist progress note early this morning said she was doing quite well. Narcan 0.4 mg x 2 were given without a whole lot of improvement. She was then sent for stat brain CT which showed no acute findings. At the time my evaluation the patient's vital signs were stable with a pulse of 99, respiratory rate of 20, blood pressure 112/89, pulse ox 96%, and temperature 97.9?. Once aroused the patient was able to give me her name, age, date of , the current year, the president, the name of the hospital, and why she was here. Without stimulation she would began to close her eyes and mumble words that I had a difficult time understanding. Stat Accu-Chek was 104. Stat ABG showed no acute issues. It appears that she may be suffering from hospital delirium and the narcotics are probably not helping that situation. On exam she had no focal deficits. Pupils were approximately 3 mm though sluggishly reactive. Extraocular motions were intact. Oral mucosa tacky. She was in a regular rate and rhythm. Positive bowel sounds. No significant edema. No facial asymmetry. Tongue and uvula were midline. No JVD or bruits noted. 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 She was moving upper and lower extremities without limitation aside from mild discomfort in the left knee from her replacement. For now I have asked her nurse to limit narcotics and I will decrease the dose. I will hold her baclofen for now. Neurologic checks will be performed q.4 hours. If no improvement tomorrow would consider a brain MRI. As her symptoms have been going on for at least 6 hours she would not be a candidate for tPA however her stroke scale is 0 and I feel that this is most likely delirium due to medications and hospitalization.
[2020-10-09 22:54] LABS: Glucose Point of Care 104 mg/dl (65-105)
--- NOTE | 2020-10-09 22:58 | PC.NURSE ---
Bianca Grande was notified pt is exhibiting dysphasia and some confusion. There has been concern throughout the day that the pt has been somnolent due to excessive narcotic admin. pt first received narcan 0.4mg at 2115 followed by a second dose at 2124, no change observed in pt. Head CT was performed to rule out stroke and MD will see pt after they return from radiology. Pt was fatigued/drowsy and alert only to self, pt was aware she had just had knee surgery. Family was notified of change in pt condition.
[2020-10-09 23:30] LABS: PCO2 ABG 42.7 mmHg (35.0-45.0); pH ABG 7.397 (7.350-7.450)
[2020-10-09 23:31] LABS: Base Excess ABG 0.7 mEq/l (+/-2.0); HCO3 ABG 25.7 mEq/l (22.0-26.0); Oxygen Saturation ABG 88.7 % (95.0-100.0); PO2 ABG 55.3 mmHg (80.0-100.0)
[2020-10-09 23:32] LABS: Alveolar/Arterial O2 Gradient 43.3 mmHg
[2020-10-09 23:33] LABS: Fractional Inspired Oxygen 21 %; Modified Allen's Test Pass; Oxyhemoglobin 88.7 % THb (90.0-100.0); PO2 FiO2 Ratio Arterial Blood 2.63 %; Site Drawn RIGHT RADIAL
[2020-10-09 23:34] LABS: Device ROOM AIR
--- NOTE | 2020-10-09 23:49 | PC.NURSE ---
Pt blood gas shows low PO2. Pt was spot checked for several minutes, O2 sats ranging from 90-94 w/ frequent fluctuation. Pt placed on 2L NC at this time and Dr. Strickland was notified.
[2020-10-10] VITALS (11 sets, daily range): BP systolic 120–148; BP diastolic 48–64; PULSE 92–103; RESP 16–22; TEMP 36.4–36.7; O2SAT 94–99
[2020-10-10 05:49] LABS: Basophils Absolute Auto 0.1 K/mm3 (0.0-0.1); Basophils Percent Auto 0.5 % (0.2-1.2); Eosinophils Absolute Auto 0.1 K/mm3 (0-0.3); Eosinophils Percent Auto 0.5 % (0-4.4); Hematocrit 33.7 % (37.0-47.0); Hemoglobin 10.2 g/dL (12.0-15.0); Immature Granulocyte Absolute 0.12 K/mm3 (0.00-0.031); Immature Granulocyte Percent A 0.7 % (0-0.5); Lymphocytes Absolute Auto 3.27 K/mm3 (0.9-3.2); Lymphocytes Percent Auto 19.3 % (18.3-44.2); Mean Corpuscular HGB Conc 30.3 g/dl (32-36); Mean Corpuscular Hemoglobin 28.6 pg (26-34); Mean Corpuscular Volume 94.4 fl (80-100); Mean Platelet Volume 9.5 fl (7.4-10.4); Monocytes Absolute Auto 2.1 K/mm3 (0.1-0.6); Monocytes Percent Auto 12.6 % (2.6-8.5); Neutrophils Absolute Auto 11.3 K/mm3 (1.3-6.7); Neutrophils Percent Auto 66.4 % (45.5-73.1); Platelet Count Result 281 k/mm3 (150-375); Red Blood Count 3.57 M/mm3 (4.2-5.4); White Blood Count 16.9 K/mm3 (4.5-10.0)
[2020-10-10 05:54] LABS: Alanine Aminotransferase 22 U/L (4-35); Albumin Level 3.5 g/dL (3.5-5.1); Alkaline Phosphatase 34 U/L (38-126); Anion Gap 6 mmol/L (8-16); Aspartate Amino Transferase 52 U/L (14-36); Bilirubin,Total 1.1 mg/dL (0.2-1.3); Blood Urea Nitrogen 18 mg/dL (7-17); Calcium 8.9 mg/dL (8.4-10.2); Carbon Dioxide 29 mmol/L (22-30); Chloride 103 mmol/L (98-107); Estimated CRCL calculation 62 ml/min; Estimated Glomerular Filt Rate > 60; Glucose 106 mg/dL (65-105); Magnesium 1.8 mg/dL (1.6-2.3); Sodium 138 mmol/L (137-145)
[2020-10-10] MEDS: LEVOTHYROXINE SODIUM 75 MCG TABLET PO (06:49)
[2020-10-10] MEDS: VITAMIN B COMPLEX CAPSULE 1 CAP PO (08:20)
[2020-10-10] MEDS: FAMOTIDINE 20 MG TABLET PO ×2 (08:20→20:50)
[2020-10-10] MEDS: ASPIRIN 325 MG ENTERIC TABLET PO ×2 (08:20→20:49)
[2020-10-10] MEDS: CELECOXIB 200 MG CAPSULE PO ×2 (08:20→17:14)
[2020-10-10] MEDS: DOCUSATE SODIUM 100 MG CAPSULE PO ×2 (08:20→17:14)
[2020-10-10] MEDS: FUROSEMIDE 20 MG TABLET PO (08:20)
[2020-10-10] MEDS: rOPINIRole HCL 1 MG TABLET BY MOUTH ×2 (08:21→17:14)
[2020-10-10] MEDS: lisinopriL 10 MG TABLET BY MOUTH (08:21)
[2020-10-10] MEDS: SIMVASTATIN 20 MG TABLET BY MOUTH (08:21)
[2020-10-10] MEDS: GABAPENTIN 100 MG CAPSULE PO ×2 (08:21→17:14)
[2020-10-10] MEDS: MUPIROCIN 2% OINT 22 GM TUBE 1 APPLIC TOPICAL ×2 (08:21→17:14)
--- NOTE | 2020-10-10 08:24 | P.PNIM_ITS ---
Progress Note: A&P Assessment and Plan (1) Degenerative joint disease of left knee: Code(s): M17.12 - Unilateral primary osteoarthritis, left knee Status: Acute Assessment and Plan: * Postoperative day 2 status post left total knee arthroplasty. * Wound care, , and DVT prophylaxis deferred to Dr. Dan. * pain control: Percocet 1 tab PO Q4hr , Oxycodone 5mg PO Q4hr, Acetaminophen 1000mg PO Q6hr PRN * Antiemetic: Zofran 4mg IV Q4hr PRN * Vancomycin 1000mg IV Q12hr, Cefazolin 2gm Q8hr * DVT: Aspirin 325mg PO Q12hr * PT/OT (2) Hypertension: Code(s): I10 - Essential (primary) hypertension Status: Chronic Assessment and Plan: * Blood pressures 142/64 * Continue home furosemide 20mg PO, Lisinopril 10mg PO * Trend blood pressure * Adjust medication as needed (3) Hyperlipidemia: Code(s): E78.5 - Hyperlipidemia, unspecified Status: Acute Assessment and Plan: * Continue simvastatin 20mg PO daily * Labs were high in July * Will check in the am * Adjust as needed (4) Hypothyroidism: Code(s): E03.9 - Hypothyroidism, unspecified Status: Acute Assessment and Plan: * Continue levothyroxine 75mcg PO Daily. * TSH 2.150 on 07/18/20 (5) Depression with anxiety: Code(s): F41.8 - Other specified anxiety disorders Status: Acute Assessment and Plan: * Continue duloxetine 60mg PO Daily, Trazodone 50mg PO at HS (6) Acute confusion: Code(s): R41.0 - Disorientation, unspecified Status: Acute Assessment and Plan: * Stroke like symptom noted overnight, slurred speech, lethargy, unarousable * Blood gas showed some hypoxia * Head ct: no intercrainal process * Consider MRI with continued symptoms * Pain medications decreased. Subjective Date/time seen: 10/10/20 08:24 Interval history: This is an 80-year-old female with degenerative joint disease, hypertension, hyperlipidemia, and hypothyroidism whom hospitalist service has been consulted for management of her medical conditions postoperatively. Today is POD 1. She has been up to the bathroom and walked the snider already this morning. She complains of having some severe pain which she rates a 10/10. She is currently laying in bed, and just finished up with therapy. She does state that she has some constipation, which she stated she battles in general. I would say it is from the long time use of narcotics. She is looking real good and is planning to DC home with home health. She denies chest pain, shortness of breath, nausea, vomiting, decreased appetite, sweats, or chills. Review of Systems Review of Systems: All systems reviewed & are unremarkable except as noted in HPI and below Exam Const: General: cooperative, healthy appearing, comfortable, no acute distress, well developed, alert, awake and Physically active Nutritional Appearance: well nourished and overweight Orientation/consciousness: oriented to person, oriented to place, oriented to time and patient oriented x3 Limitations: no limitations HENMT: Head: normal to inspection Ears: hearing grossly normal bilaterally General nose exam: Normal external nose present Mouth: Yes Normal oral and palatal mucosa present, Yes lip normal and Yes tongue normal Teeth and gingiva: abnormal tooth and associated gingiva and poor dentition Eyes: General: appearance normal, both eyes and all related structures Neck: Neck: normal visual inspection, full ROM, trachea m
--- NOTE | 2020-10-10 08:24 | PM.IMPN ---
Progress Note: A&P Assessment and Plan (1) Degenerative joint disease of left knee: Code(s): M17.12 - Unilateral primary osteoarthritis, left knee Status: Acute Assessment and Plan: Postoperative day 2 status post left total knee arthroplasty. Wound care, , and DVT prophylaxis deferred to Dr. Dan. pain control: Percocet 1 tab PO Q4hr , Oxycodone 5mg PO Q4hr, Acetaminophen 1000mg PO Q6hr PRN Antiemetic: Zofran 4mg IV Q4hr PRN Vancomycin 1000mg IV Q12hr, Cefazolin 2gm Q8hr DVT: Aspirin 325mg PO Q12hr PT/OT (2) Hypertension: Code(s): I10 - Essential (primary) hypertension Status: Chronic Assessment and Plan: Blood pressures 142/64 Continue home furosemide 20mg PO, Lisinopril 10mg PO Trend blood pressure Adjust medication as needed (3) Hyperlipidemia: Code(s): E78.5 - Hyperlipidemia, unspecified Status: Acute Assessment and Plan: Continue simvastatin 20mg PO daily Labs were high in July Will check in the am Adjust as needed (4) Hypothyroidism: Code(s): E03.9 - Hypothyroidism, unspecified Status: Acute Assessment and Plan: Continue levothyroxine 75mcg PO Daily. TSH 2.150 on 07/18/20 (5) Depression with anxiety: Code(s): F41.8 - Other specified anxiety disorders Status: Acute Assessment and Plan: Continue duloxetine 60mg PO Daily, Trazodone 50mg PO at HS (6) Acute confusion: Code(s): R41.0 - Disorientation, unspecified Status: Acute Assessment and Plan: Stroke like symptom noted overnight, slurred speech, lethargy, unarousable Blood gas showed some hypoxia Head ct: no intercrainal process Consider MRI with continued symptoms Pain medications decreased. Subjective Date/time seen: 10/10/20 08:24 Interval history: This is an 80-year-old female with degenerative joint disease, hypertension, hyperlipidemia, and hypothyroidism whom hospitalist service has been consulted for management of her medical conditions postoperatively. Today is POD 1. She has been up to the bathroom and walked the snider already this morning. She complains of having some severe pain which she rates a 10/10. She is currently laying in bed, and just finished up with therapy. She does state that she has some constipation, which she stated she battles in general. I would say it is from the long time use of narcotics. She is looking real good and is planning to DC home with home health. She denies chest pain, shortness of breath, nausea, vomiting, decreased appetite, sweats, or chills. Review of Systems Review of Systems: All systems reviewed & are unremarkable except as noted in HPI and below Exam Const: General: cooperative, healthy appearing, comfortable, no acute distress, well developed, alert, awake and Physically active Nutritional Appearance: well nourished and overweight Orientation/consciousness: oriented to person, oriented to place, oriented to time and patient oriented x3 Limitations: no limitations HENMT: Head: normal to inspection Ears: hearing grossly normal bilaterally General nose exam: Normal external nose present Mouth: Yes Normal oral and palatal mucosa present, Yes lip normal and Yes tongue normal Teeth and gingiva: abnormal tooth and associated gingiva and poor dentition Eyes: General: appearance normal, both eyes and all related structures Neck: Neck: normal visual inspection, full ROM, trachea midline and supple Chest: Chest palpation & inspection: normal inspection of the chest Resp: Effort & Inspection: normal respiratory effort and able to speak in complete sentences Auscultation: clear to auscultation bilaterally Cardio: Jugular venous distension: no JVD Rate: regular rate Rhythm: regular rhythm Heart sounds: S1 normal heart sound present and S2 normal heart sound present Peripheral pulses: Peripheral pulses 2+ throughout GI: Inspection: nor
--- NOTE | 2020-10-10 09:21 | PM.PNORT ---
Progress Note: A&P Assessment and Plan (1) S/P total knee arthroplasty: Qualifiers: Laterality: left Qualified Code(s): Z96.652 - Presence of left artificial knee joint Code(s): Z96.659 - Presence of unspecified artificial knee joint Status: Acute Assessment and Plan: POD #2: Left TKA PT/OT as tolerated, limited by confusion/lethargy. HIGH FALL RISK. Walker at all times. Pain control, hold narcotics. Continue DVT prophylaxis. SCDs. Incentive Spirometry. Ice Knee. Monitor dressing. Change prior to discharge. Dispo: Home with Home Health once medically stable and improvement in confusion. (2) Acute confusion: Code(s): R41.0 - Disorientation, unspecified Status: Acute Assessment and Plan: Patient had stroke-like symptoms overnight with slurred speech, lethargy and was unarousable. She did receive a dose of Narcan with minimal improvement. She underwent a head CT which revealed no intracranial process. Hold narcotics at this time. Consider MRI with continued symptoms. Subjective Subjective Date/Time Seen: 10/10/20 09:00 POD #2: LEFT TKA Patient rousable to voice this morning. Some confusion however after stimulation she was able to answer questions appropriately. Events of last night noted. Patient with acute delirium. Narcan performed by hospitalist service. Patient also had a CT obtained which revealed no acute findings. She denies left knee pain at this time. Review of Systems Constitutional: Constitutional: Reports as per HPI, Denies fever(s) and Reports weakness Cardiovascular: Cardiovascular: Denies chest pain, Denies lightheadedness and Denies palpitations Respiratory: Respiratory: Denies cough and Denies dyspnea Gastrointestinal: Gastrointestinal: Denies abdominal pain, Denies nausea and Denies vomiting Genitourinary: Genitourinary: Reports no additional female genitourinary complaints Musculoskeletal: Musculoskeletal: Reports as per HPI Objective Data Vital Signs Vital Signs: Vital Signs - 24 hr 10/09/20 09:32 10/09/20 10:00 10/09/20 14:30 Temperature 36.5 C 36.4 C Pulse Rate 99 102 H Respiratory Rate 16 14 Blood Pressure 124/62 119/60 Pulse Oximetry 92 96 93 10/09/20 18:10 10/09/20 21:29 10/09/20 23:55 Temperature 36.2 C L 36.6 C Pulse Rate 100 99 Respiratory Rate 18 20 Blood Pressure 110/58 L 112/89 Pulse Oximetry 95 96 97 10/10/20 01:01 10/10/20 04:00 10/10/20 05:58 Temperature 36.4 C L Pulse Rate 103 H 92 98 Respiratory Rate 16 Blood Pressure 142/64 H Pulse Oximetry 99 10/10/20 08:28 Temperature Pulse Rate Respiratory Rate Blood Pressure Pulse Oximetry 96 Intake/Output Intake/Output: Intake & Output 10/07/20 10/08/20 10/09/20 10/10/20 23:59 23:59 23:59 23:59 Intake Total 1780 194 100 Output Total 300 Balance 1780 1940 -200 Meds/Results Medications: Active Medications Generic Name Dose Route Start Last Admin Trade Name Freq PRN Reason Stop Dose Admin Acetaminophen 1,000 mg 10/08/20 11:44 Acetaminophen 500 Mg Tablet PO Q6H PRN Pain Rated 1-3 Aspirin 325 mg 10/08/20 21:00 10/10/20 08:20 Aspirin 325 Mg Enteric Tablet PO 325 mg Q12HR GERONIMO Administration Baclofen 20 mg 10/08/20 17:00 10/09/20 16:09 Baclofen 10 Mg Tablet PO 20 mg TID GERONIMO Administration Celecoxib 200 mg 10/08/20 17:00 10/10/20 08:20 Celecoxib 200 Mg Capsule PO 200 mg BIDWM GERONIMO Administration Diazepam 5 mg 10/08/20 11:44 Diazepam (*Crx) 5 Mg Tablet PO Q8H PRN Spasms Diphenhydramine HCl 25 mg 10/08/20 11:44 Diphenhydramine Hcl Inj 50 Mg/Ml Vial IV PUSH Q6H PRN Itching Docusate Sodium 100 mg 10/08/20 17:00 10/10/20 08:20 Docusate Sodium 100 Mg Capsule PO 100 mg BID GERONIMO Administration Duloxetine HCl 60 mg 10/08/20 17:00 10/09/20 12:06 Duloxetine Hcl 60 Mg Capsule.Dr PO 60 mg DAILY@1200 [facility]
[2020-10-10] MEDS: DULoxetine HCL 60 MG CAPSULE.DR PO (11:12)
--- NOTE | 2020-10-10 11:52 | P.PNIM_ITS ---
Progress Note: A&P Assessment and Plan (1) Degenerative joint disease of left knee: Code(s): M17.12 - Unilateral primary osteoarthritis, left knee Status: Acute Assessment and Plan: * Postoperative day 2 status post left total knee arthroplasty. * Wound care, and DVT prophylaxis deferred to Dr. Dan. * pain control: Percocet 1 tab PO Q4hr , Oxycodone 5mg PO Q4hr, Acetaminophen 1000mg PO Q6hr PRN on hold for now with acute confusion * Antiemetic: Zofran 4mg IV Q4hr PRN * Vancomycin 1000mg IV Q12hr, Cefazolin 2gm Q8hr * DVT: Aspirin 325mg PO Q12hr * PT/OT (2) Hypertension: Code(s): I10 - Essential (primary) hypertension Status: Chronic Assessment and Plan: * Blood pressures 142/64 * Continue home furosemide 20mg PO, Lisinopril 10mg PO * Trend blood pressure * Adjust medication as needed (3) Hyperlipidemia: Code(s): E78.5 - Hyperlipidemia, unspecified Status: Acute Assessment and Plan: * Continue simvastatin 20mg PO daily * Labs were high in July * Will check in the am * Adjust as needed (4) Hypothyroidism: Code(s): E03.9 - Hypothyroidism, unspecified Status: Acute Assessment and Plan: * Continue levothyroxine 75mcg PO Daily. * TSH 2.150 on 07/18/20 (5) Depression with anxiety: Code(s): F41.8 - Other specified anxiety disorders Status: Acute Assessment and Plan: * Continue duloxetine 60mg PO Daily, Trazodone 50mg PO at HS (6) Acute confusion: Code(s): R41.0 - Disorientation, unspecified Status: Acute Assessment and Plan: * Stroke like symptom noted overnight, slurred speech, lethargy, unarousable * Blood gas showed some hypoxia * Head ct: no intercrainal process * Consider MRI with continued symptoms * Pain medications decreased. * Muscle relaxant has been placed on hold * One time 15mg Toradol IV push for help with pain * BNP to see if there is some fluid overload * May check an Ammonia * Will consider neurology if no improvement Time Spent With Patient Time: reorientation, physical exam, assessment, plan of care. Time with patient: Greater than 35 minutes Subjective Date/time seen: 10/10/20 10:45 Interval history: This is an 80-year-old female with degenerative joint disease, hypertension, hyperlipidemia, and hypothyroidism whom hospitalist service has been consulted for management of her medical conditions postoperatively. Today is POD 2. Patient did have an episode of Of confusion and lethargy last night. Today patient seems to be a little better however she is still confused at times and stated that the year was 1985 but she can and timing that she is in pain and that she knows she is in the hospital, what she does at home and particular was cards, her daughter's name, and that she was working with physical therapy. Today patient does look a little tired with very poor hygiene. Patient is sitting in chair currently and stated that she was working with PT and was able to walk a little bit. Patient denies chest pain and shortness of breath however she is really a poor historian and loses interest in conversation very quickly. I do think patient is in pain and when I was assessing her leg which she would grimace and move her leg sort of like guarding. I am not sure that I feel this is delirium or a stroke I feel like this might be related to increased pain. Review of Systems Review of Systems: ROS unobtainable: Yes unobtainable due to medical condition (Patient i
--- NOTE | 2020-10-10 11:52 | PM.IMPN ---
Progress Note: A&P Assessment and Plan (1) Degenerative joint disease of left knee: Code(s): M17.12 - Unilateral primary osteoarthritis, left knee Status: Acute Assessment and Plan: Postoperative day 2 status post left total knee arthroplasty. Wound care, and DVT prophylaxis deferred to Dr. Dan. pain control: Percocet 1 tab PO Q4hr , Oxycodone 5mg PO Q4hr, Acetaminophen 1000mg PO Q6hr PRN on hold for now with acute confusion Antiemetic: Zofran 4mg IV Q4hr PRN Vancomycin 1000mg IV Q12hr, Cefazolin 2gm Q8hr DVT: Aspirin 325mg PO Q12hr PT/OT (2) Hypertension: Code(s): I10 - Essential (primary) hypertension Status: Chronic Assessment and Plan: Blood pressures 142/64 Continue home furosemide 20mg PO, Lisinopril 10mg PO Trend blood pressure Adjust medication as needed (3) Hyperlipidemia: Code(s): E78.5 - Hyperlipidemia, unspecified Status: Acute Assessment and Plan: Continue simvastatin 20mg PO daily Labs were high in July Will check in the am Adjust as needed (4) Hypothyroidism: Code(s): E03.9 - Hypothyroidism, unspecified Status: Acute Assessment and Plan: Continue levothyroxine 75mcg PO Daily. TSH 2.150 on 07/18/20 (5) Depression with anxiety: Code(s): F41.8 - Other specified anxiety disorders Status: Acute Assessment and Plan: Continue duloxetine 60mg PO Daily, Trazodone 50mg PO at HS (6) Acute confusion: Code(s): R41.0 - Disorientation, unspecified Status: Acute Assessment and Plan: Stroke like symptom noted overnight, slurred speech, lethargy, unarousable Blood gas showed some hypoxia Head ct: no intercrainal process Consider MRI with continued symptoms Pain medications decreased. Muscle relaxant has been placed on hold One time 15mg Toradol IV push for help with pain BNP to see if there is some fluid overload May check an Ammonia Will consider neurology if no improvement Time Spent With Patient Time: reorientation, physical exam, assessment, plan of care. Time with patient: Greater than 35 minutes Subjective Date/time seen: 10/10/20 10:45 Interval history: This is an 80-year-old female with degenerative joint disease, hypertension, hyperlipidemia, and hypothyroidism whom hospitalist service has been consulted for management of her medical conditions postoperatively. Today is POD 2. Patient did have an episode of Of confusion and lethargy last night. Today patient seems to be a little better however she is still confused at times and stated that the year was 1985 but she can and timing that she is in pain and that she knows she is in the hospital, what she does at home and particular was cards, her daughter's name, and that she was working with physical therapy. Today patient does look a little tired with very poor hygiene. Patient is sitting in chair currently and stated that she was working with PT and was able to walk a little bit. Patient denies chest pain and shortness of breath however she is really a poor historian and loses interest in conversation very quickly. I do think patient is in pain and when I was assessing her leg which she would grimace and move her leg sort of like guarding. I am not sure that I feel this is delirium or a stroke I feel like this might be related to increased pain. Review of Systems Review of Systems: ROS unobtainable: Yes unobtainable due to medical condition (Patient is A&O x 1-2) Exam Const: General: cooperative, healthy appearing, comfortable, no acute distress, well developed, alert, awake, Physically active, confusion, ill appearing, poor hygiene and tired appearing Nutritional Appearance: well nourished and overweight Orientation/consciousness: oriented to person, oriented to place, confusion and lethargic Limitations: no limitations HENMT: Head: normal to inspection Ears: hearing gr
[2020-10-10] MEDS: KETOROLAC 15 MG/ML VIAL (*BKC) IV PUSH (12:14)
[2020-10-10 12:44] LABS: Ammonia < 9 umol/L (9-30)
[2020-10-10 12:54] LABS: NT Pro B Type Natriuretic Pept 57 pg/mL (5-100)
[2020-10-10] MEDS: ACETAMINOPHEN 500 MG TABLET 1000 MG PO ×2 (17:13→23:35)
[2020-10-10] MEDS: traZODone HCL 50 MG TABLET BY MOUTH (20:50)
[2020-10-11] VITALS: PULSE 100
[2020-10-11 04:00] VITALS: PULSE 90
[2020-10-11 05:13] VITALS: BP 145/65; PULSE 91; RESP 22; TEMP 37.1; O2SAT 98
[2020-10-11] MEDS: ACETAMINOPHEN 500 MG TABLET 1000 MG PO ×2 (06:12→12:06)
[2020-10-11] MEDS: LEVOTHYROXINE SODIUM 75 MCG TABLET PO (06:12)
--- NOTE | 2020-10-11 07:30 | P.PNIM_ITS ---
Progress Note: A&P Assessment and Plan (1) Degenerative joint disease of left knee: Code(s): M17.12 - Unilateral primary osteoarthritis, left knee Status: Acute Assessment and Plan: * Postoperative day 3 status post left total knee arthroplasty. * Wound care, and DVT prophylaxis deferred to Dr. Dan. * pain control: Percocet 1 tab PO Q4hr , Oxycodone 5mg PO Q4hr, PRN on hold for now with acute confusion. * Acetaminophen 1000mg PO Q6hr scheduled with celebrex 200mg PO and gabapentin 100mg PO * Antiemetic: Zofran 4mg IV Q4hr PRN * Vancomycin 1000mg IV Q12hr, Cefazolin 2gm Q8hr * DVT: Aspirin 325mg PO Q12hr * PT/OT (2) Hypertension: Code(s): I10 - Essential (primary) hypertension Status: Chronic Assessment and Plan: * Blood pressures 145/65 * Continue home furosemide 20mg PO, Lisinopril 10mg PO * Trend blood pressure * Adjust medication as needed (3) Hyperlipidemia: Code(s): E78.5 - Hyperlipidemia, unspecified Status: Acute Assessment and Plan: * Continue simvastatin 20mg PO daily * Labs were high in July * Will check in the am * Adjust as needed (4) Hypothyroidism: Code(s): E03.9 - Hypothyroidism, unspecified Status: Acute Assessment and Plan: * Continue levothyroxine 75mcg PO Daily. * TSH 2.150 on 07/18/20 (5) Depression with anxiety: Code(s): F41.8 - Other specified anxiety disorders Status: Acute Assessment and Plan: * Continue duloxetine 60mg PO Daily, Trazodone 50mg PO at HS (6) Acute confusion: Code(s): R41.0 - Disorientation, unspecified Status: Acute Assessment and Plan: * Problem seems to be resolved. Patient is A&O x 3 and stated she was ready to go home. * Stroke like symptom noted overnight, slurred speech, lethargy, unarousable * Blood gas showed some hypoxia * Head ct: no intercrainal process * Consider MRI with continued symptoms * Pain medications decreased. * Muscle relaxant has been placed on hold * One time 15mg Toradol IV push for help with pain, which did make a difference in mentation * BNP was 57 * Ammonia less than 9 Subjective Date/time seen: 10/11/20 07:30 Interval history: This is an 80-year-old female with degenerative joint disease, hypertension, hyperlipidemia, and hypothyroidism whom hospitalist service has been consulted for management of her medical conditions postoperatively. Today is POD 3. Patient is a lot better today. She is alert and oriented. She has no complaints. She does say her pain is better and she was talking about her vacation that she is taking with her in November. She denies chest pain, shortness of breath, nausea, vomiting, decreased appetite, sweats, or chills. Review of Systems Review of Systems: All systems reviewed & are unremarkable except as noted in HPI and below Exam Const: General: cooperative, healthy appearing, comfortable, no acute distress, well developed, alert, awake, Physically active, confusion, ill appearing, lethargic, poor hygiene and tired appearing Nutritional Appearance: well nourished and overweight Orientation/consciousness: oriented to person, oriented to place, oriented to time and patient oriented x3 Limitations: no limitations HENMT: Head: normal to inspection Ears: hearing grossly normal bilaterally General nose exam: Normal external nose present Mouth: Yes Normal oral and palatal
--- NOTE | 2020-10-11 07:30 | PM.IMPN ---
Progress Note: A&P Assessment and Plan (1) Degenerative joint disease of left knee: Code(s): M17.12 - Unilateral primary osteoarthritis, left knee Status: Acute Assessment and Plan: Postoperative day 3 status post left total knee arthroplasty. Wound care, and DVT prophylaxis deferred to Dr. Dan. pain control: Percocet 1 tab PO Q4hr , Oxycodone 5mg PO Q4hr, PRN on hold for now with acute confusion. Acetaminophen 1000mg PO Q6hr scheduled with celebrex 200mg PO and gabapentin 100mg PO Antiemetic: Zofran 4mg IV Q4hr PRN Vancomycin 1000mg IV Q12hr, Cefazolin 2gm Q8hr DVT: Aspirin 325mg PO Q12hr PT/OT (2) Hypertension: Code(s): I10 - Essential (primary) hypertension Status: Chronic Assessment and Plan: Blood pressures 145/65 Continue home furosemide 20mg PO, Lisinopril 10mg PO Trend blood pressure Adjust medication as needed (3) Hyperlipidemia: Code(s): E78.5 - Hyperlipidemia, unspecified Status: Acute Assessment and Plan: Continue simvastatin 20mg PO daily Labs were high in July Will check in the am Adjust as needed (4) Hypothyroidism: Code(s): E03.9 - Hypothyroidism, unspecified Status: Acute Assessment and Plan: Continue levothyroxine 75mcg PO Daily. TSH 2.150 on 07/18/20 (5) Depression with anxiety: Code(s): F41.8 - Other specified anxiety disorders Status: Acute Assessment and Plan: Continue duloxetine 60mg PO Daily, Trazodone 50mg PO at HS (6) Acute confusion: Code(s): R41.0 - Disorientation, unspecified Status: Acute Assessment and Plan: Problem seems to be resolved. Patient is A&O x 3 and stated she was ready to go home. Stroke like symptom noted overnight, slurred speech, lethargy, unarousable Blood gas showed some hypoxia Head ct: no intercrainal process Consider MRI with continued symptoms Pain medications decreased. Muscle relaxant has been placed on hold One time 15mg Toradol IV push for help with pain, which did make a difference in mentation BNP was 57 Ammonia less than 9 Subjective Date/time seen: 10/11/20 07:30 Interval history: This is an 80-year-old female with degenerative joint disease, hypertension, hyperlipidemia, and hypothyroidism whom hospitalist service has been consulted for management of her medical conditions postoperatively. Today is POD 3. Patient is a lot better today. She is alert and oriented. She has no complaints. She does say her pain is better and she was talking about her vacation that she is taking with her in November. She denies chest pain, shortness of breath, nausea, vomiting, decreased appetite, sweats, or chills. Review of Systems Review of Systems: All systems reviewed & are unremarkable except as noted in HPI and below Exam Const: General: cooperative, healthy appearing, comfortable, no acute distress, well developed, alert, awake, Physically active, confusion, ill appearing, lethargic, poor hygiene and tired appearing Nutritional Appearance: well nourished and overweight Orientation/consciousness: oriented to person, oriented to place, oriented to time and patient oriented x3 Limitations: no limitations HENMT: Head: normal to inspection Ears: hearing grossly normal bilaterally General nose exam: Normal external nose present Mouth: Yes Normal oral and palatal mucosa present, Yes lip normal and Yes tongue normal Teeth and gingiva: abnormal tooth and associated gingiva and poor dentition Eyes: General: appearance normal, both eyes and all related structures Neck: Neck: normal visual inspection, full ROM, trachea midline and supple Chest: Chest palpation & inspection: normal inspection of the chest Resp: Effort & Inspection: normal respiratory effort and able to speak in complete sentences Auscultation: clear to auscultation bilaterally Cardio: Jugular venou
[2020-10-11 08:00] VITALS: PULSE 88
[2020-10-11 08:41] LABS: Hematocrit 31.3 % (37.0-47.0); Hemoglobin 9.3 g/dL (12.0-15.0); Mean Corpuscular HGB Conc 29.7 g/dl (32-36); Mean Corpuscular Hemoglobin 28.5 pg (26-34); Mean Platelet Volume 9.9 fl (7.4-10.4); Platelet Count Result 304 k/mm3 (150-375); Red Blood Count 3.26 M/mm3 (4.2-5.4); Red Cell Distribution Width 15.9 % (11.5-14.5); White Blood Count 15.7 K/mm3 (4.5-10.0)
[2020-10-11 08:49] LABS: Alanine Aminotransferase 16 U/L (4-35); Albumin Level 3.4 g/dL (3.5-5.1); Alkaline Phosphatase 43 U/L (38-126); Anion Gap 8 mmol/L (8-16); Aspartate Amino Transferase 35 U/L (14-36); Bilirubin,Total 0.9 mg/dL (0.2-1.3); Blood Urea Nitrogen 22 mg/dL (7-17); Calcium 8.9 mg/dL (8.4-10.2); Carbon Dioxide 28 mmol/L (22-30); Chloride 103 mmol/L (98-107); Estimated CRCL calculation 55 ml/min; Estimated Glomerular Filt Rate > 60; Glucose 100 mg/dL (65-105); Potassium 3.9 mmol/L (3.4-5.0); Sodium 139 mmol/L (137-145)
[2020-10-11] MEDS: GABAPENTIN 100 MG CAPSULE PO (08:57)
[2020-10-11] MEDS: FAMOTIDINE 20 MG TABLET PO (08:57)
[2020-10-11] MEDS: DOCUSATE SODIUM 100 MG CAPSULE PO (08:57)
[2020-10-11] MEDS: rOPINIRole HCL 1 MG TABLET BY MOUTH (08:57)
[2020-10-11] MEDS: CELECOXIB 200 MG CAPSULE PO (08:57)
[2020-10-11] MEDS: ASPIRIN 325 MG ENTERIC TABLET PO (08:57)
[2020-10-11] MEDS: VITAMIN B COMPLEX CAPSULE 1 CAP PO (08:57)
[2020-10-11] MEDS: lisinopriL 10 MG TABLET BY MOUTH (08:57)
[2020-10-11] MEDS: FUROSEMIDE 20 MG TABLET PO (08:58)
[2020-10-11] MEDS: SIMVASTATIN 20 MG TABLET BY MOUTH (08:58)
--- NOTE | 2020-10-11 10:16 | PM.PNORT ---
Progress Note: A&P Assessment and Plan (1) S/P total knee arthroplasty: Qualifiers: Laterality: left Qualified Code(s): Z96.652 - Presence of left artificial knee joint Code(s): Z96.659 - Presence of unspecified artificial knee joint Status: Acute Assessment and Plan: POD #3: Left TKA PT/OT as tolerated. WBAT. HIGH FALL RISK. Walker at all times. Pain control, limit narcotics. Continue DVT prophylaxis. SCDs. Incentive Spirometry. Ice Knee. Monitor dressing. Change prior to discharge. Dispo: Home with Home Health today. (2) Acute confusion: Code(s): R41.0 - Disorientation, unspecified Status: Acute Assessment and Plan: Improvement in mental status overall. Working well with PT/OT this AM. Subjective Subjective Date/Time Seen: 10/11/20 0950 Interval history: POD #3: LEFT TKA Patient working well with PT/OT this AM. Walking in the snider before exam. Improvement in pain today. Improvement in mental status, no lethargy. Patient hopeful for discharge. Review of Systems Constitutional: Constitutional: Reports as per HPI, Denies fever(s) and Reports weakness Cardiovascular: Cardiovascular: Denies chest pain, Denies lightheadedness and Denies palpitations Respiratory: Respiratory: Denies cough and Denies dyspnea Gastrointestinal: Gastrointestinal: Denies abdominal pain, Denies nausea and Denies vomiting Genitourinary: Genitourinary: Reports no additional female genitourinary complaints Musculoskeletal: Musculoskeletal: Reports as per HPI Exam Const: General: comfortable and no acute distress Resp: Effort & Inspection: normal respiratory effort Cardio: Rate: regular rate Rhythm: regular rhythm GI: GI Palp: Yes Soft to palpation, No Tenderness to palpation present (GI) and No Guarding due to palpation present (GI) Skin: Wounds: wounds noted Other: Incision c/d/i. No surrounding redness/warmth. No hematoma. Mild ecchymosis. No wound dehiscence Neuro: Cognition (Neuro): normal cognition Other: NV intact aside from block. Moves toes. Sensation intact to light touch. +ankle dorsiflexion/plantarflexion. Extrem: Right upper extremity: normal to inspection, full ROM and normal capillary refill Left upper extremity: normal to inspection, full ROM and normal capillary refill Right lower extremity: normal to inspection, full ROM and knee Details: normal to inspection and normal ROM; no tenderness and no swelling Left lower extremity: normal to inspection, full ROM and knee Details: tenderness, swelling, abnormal ROM (ROM limited due to pain/consistent with recent surgery ) and other Other: Incision left TKA dressing c/d/i. No hematoma. No signs of infection. No wound dehiscence. Psych: Mental Status: mental status grossly normal Objective Data Vital Signs Vital Signs: Vital Signs - 24 hr 10/10/20 12:00 10/10/20 14:00 10/10/20 16:00 Temperature 36.4 C Pulse Rate 93 94 93 Respiratory Rate 16 Blood Pressure 148/64 H Pulse Oximetry 96 10/10/20 20:00 10/10/20 20:51 10/10/20 21:06 Temperature 36.7 C Pulse Rate 93 93 Respiratory Rate 22 H Blood Pressure 120/48 L Pulse Oximetry 94 98 10/11/20 00:00 10/11/20 04:00 10/11/20 05:13 Temperature 37.1 C Pulse Rate 100 90 91 Respiratory Rate 22 H Blood Pressure 145/65 H Pulse Oximetry 98 10/11/20 08:00 Temperature Pulse Rate 88 Respiratory Rate Blood Pressure Pulse Oximetry Intake/Output Intake/Output: Intake & Output 10/08/20 10/09/20 10/10/20 10/11/20 23:59 23:59 23:59 23:59 Intake Total 17790 820 530 Output Total 300 Balance 1779 1939 520 530 Meds/Results Medications: Active Medications Generic Name Dose Route Start Last Admin Trade Name Freq PRN Reason Stop Dose Admin Acetaminophen 1,000 mg 10/10/20 18:00 10/11/20 06:12 Acetaminophen 500 Mg Tablet PO 1,000 mg Q6HR GERONIMO Administration Aspirin 325 mg 10/08/20 21:00
[2020-10-11 11:56] VITALS: O2SAT 98
[2020-10-11 12:00] VITALS: PULSE 91
[2020-10-11] MEDS: DULoxetine HCL 60 MG CAPSULE.DR PO (12:06)
--- NOTE | 2020-10-11 13:19 | PM.DS ---
DS: Admitting Diagnosis Admitting Diagnosis Admitting Diagnosis: left knee DJD DS: Discharge Diagnosis Discharge Diagnosis (1) S/P total knee arthroplasty: Qualifiers: Laterality: left Qualified Code(s): Z96.652 - Presence of left artificial knee joint Code(s): Z96.659 - Presence of unspecified artificial knee joint Status: Acute Assessment and Plan: POD #3: Left TKA PT/OT as tolerated. WBAT. HIGH FALL RISK. Walker at all times. Pain control, limit narcotics. Continue DVT prophylaxis. SCDs. Incentive Spirometry. Ice Knee. Monitor dressing. Change prior to discharge. Dispo: Home with Home Health today. (2) Acute confusion: Code(s): R41.0 - Disorientation, unspecified Status: Acute Assessment and Plan: Improvement in mental status overall. Working well with PT/OT this AM. DS: Summary Hospital Course Reason for hospitalization: left total knee arthroplasty Hospital Course: 80-year-old female admitted status post left total knee arthroplasty for postoperative medical management, pain control and physical and occupational therapy. Patient did have difficulty overnight on postop day 1 with acute confusion and stroke-like symptoms. CT was negative for acute abnormality. Improvement in pain control on postop day 2 showed overall improvement in mentation. Today on postop day 3, patient is alert and oriented and answering questions appropriately. She is working well as PT and OT and hopeful for discharge home. Her pain has been controlled today. She has been cleared from a Medicine standpoint for discharge. Status at Discharge Functional status at discharge: uses cane/walker Overall status at discharge: patient is back to baseline Time Spent with Patient Time attestation: Total time spent providing and/or coordinating discharge services: Time spent: Less than 30 minutes Exam Const: General: comfortable and no acute distress Resp: Effort & Inspection: normal respiratory effort Cardio: Rate: regular rate Rhythm: regular rhythm Skin: Wounds: wounds noted Other: Incision c/d/i. No surrounding redness/warmth. No hematoma. Mild ecchymosis. No wound dehiscence Neuro: Cognition (Neuro): normal cognition Other: NV intact aside from block. Moves toes. Sensation intact to light touch. +ankle dorsiflexion/plantarflexion. Extrem: Right upper extremity: normal to inspection, full ROM and normal capillary refill Left upper extremity: normal to inspection, full ROM and normal capillary refill Right lower extremity: normal to inspection, full ROM and knee Details: normal to inspection and normal ROM; no tenderness and no swelling Left lower extremity: normal to inspection, full ROM and knee Details: tenderness, swelling, abnormal ROM (ROM limited due to pain/consistent with recent surgery ) and other Other: Incision left TKA dressing c/d/i. No hematoma. No signs of infection. No wound dehiscence. Psych: Mental Status: mental status grossly normal DS: Data Data Completed and Pending Labs on day of discharge: Labs from last 24 hours 10/11/20 10/11/20 07:48 07:47 WBC 15.7 H RBC 3.26 L Hgb 9.3 L Hct 31.3 L MCV 96.0 MCH 28.5 MCHC 29.7 L RDW 15.9 H Plt Count 304 MPV 9.9 Sodium 139 Potassium 3.9 Chloride 103 Carbon Dioxide 28 Anion Gap 8 BUN 22 H Creatinine 0.80 Estim Creat Clear Calc 55 Estimated GFR > 60 Glucose 100 Calcium 8.9 Total Bilirubin 0.9 AST 35 ALT 16 Alkaline Phosphatase 43 Total Protein 6.0 L Albumin 3.4 L Discharge Plan Discharge Attending physician on discharge: Ean Dan Consulting providers: Osmel Sotomayor Discharging Clinician: Sada Hoffman Anticipated Discharge Date/Time: 10/11/20 12:39 Patient Disposition: Home Health Service Activity: may shower, no driving and follow weight bearing status Diet: as tolerated Wound Care Instructions: fol
== END 2020-10-11 14:35 | disposition home health service (06) ==
LOC: ANHSURGERY 18:46 → ANH2MED 18:46
PROVIDERS: Internal Medicine; Nurse Practitioner; Admitting Provider Orthopaedic Surgery; PCP Family Medicine; Visit Provider Orthopaedic Surgery
PROC: (CPT 27447; principal; 2020-10-08 07:30)
DX: M17.12 Unilateral primary osteoarthritis, left knee (principal); G89.18 Other acute postprocedural pain; R41.0 Disorientation, unspecified; R47.81 Slurred speech; I10 Essential (primary) hypertension; E78.5 Hyperlipidemia, unspecified; E03.9 Hypothyroidism, unspecified; F41.8 Other specified anxiety disorders
CPT/HCPCS: 27447; 64447; 36415; 36600; 70450; 73560; 80048; 80053; 80076; 81001; 82040; 82140; 82805; 82948; 83735; 83880; 85025; 85027; 86850; 86900; 86901; 87081; 87086; 87088; 97110; 97116; 97161; 97165; 97530; 97535; A9270; C1713; C1776; G0378; J0171; J0690; J1100; J1170; J1885; J1940; J2270; J2310; J2370; J2405; J2704; J2795; J3010; J3370; J7030; J7120

== ENCOUNTER 2021-01-15 14:00 | Outpatient (RCR) | payer MEDICARE, SELFPAY ==
--- NOTE | 2020-12-20 14:22 | PTOPEVAL ---
PHYSICAL THERAPY EVALUATION AND PLAN OF CARE 12-20-20 Thank you for referring Nikia [facility] to [facility]– [place].? Nikia is scheduled to be seen for therapy? 2 x/week for 4 weeks. Please review, sign, date and return this plan of care OWEN. I agree with and certify that the following plan of care is medically necessary. Referring Physician Date Attending Provider: Ean Dan MD PT Outpatient Evaluation Start: 12/20/20 13:33 Document 12/20/20 13:25 SARINA (Rec: 12/20/20 14:22 SARINA [id number]) Outpatient Past Medical History Past Medical History Source of Past Medical History Recalled from Previous Visit, Confirmed with Patient/Family Neurological History Hx Neurological Disorders No Significant History Cardiovascular History Hx Hypertension Yes: meds Respiratory History Hx Respiratory Disorders No Significant History Gastrointestinal History Hx Gastrointestinal Disorders No Significant History Genitourinary History Hx Genitourinary Disorders No Significant History Musculoskeletal History Hx Arthritis Yes Hx Joint Replacement Yes: total left knee Hx Spinal Surgery Yes: back surgery, 5-10 yr ago -? Hx Other Musculoskeletal Disorders Yes: B foot surgery Hematological History Hx Hematological Disorders No Significant History Endocrine History Hx Hypothyroidism Yes: meds HEENT History Hx Cataracts Yes: cataract removal Integumentary History Hx Other Skin Disorders Yes Reproductive History Hx Section Yes Hx Hysterectomy Yes Psychosocial History Hx Anxiety Yes Hx Depression Yes Pain History Has Past Pain Affected Your Daily Life Yes History of Long-Term Prescription Pain Yes Medication Use (Opiates) Anesthesia History Hx Anesthesia Reactions No Significant History Other History Hx Other Medical Conditions Yes: have had covid vaccine Evaluation Information Problem Diagnosis s/p L TKR Onset 10-08-20 surgery date Subjective Information had Home Health Therapy; HEP- Query Text:As Reported By Patient/ is doing supine SLR, QS and Family walking; have been out to [employer] and shopping a few times; order for PT is dated 11-07-20: pt stated not able to come in due to transportation problems ; Prior Level of Function Activity Level (Last 3 Months) Occupation retired Cooking Yes Cleaning Yes Laundry Yes
--- NOTE | 2021-01-06 13:14 | PCPTNOTE ---
Patient called & cancelled scheduled appointment this date due to having another MD appointment.
--- NOTE | 2021-01-08 14:09 | PCPTNOTE ---
Patient did not show up for scheduled appointment this date; called and left voicemail for reminder on next appointment 01/13 @ 14:30
--- NOTE | 2021-01-13 16:12 | PCPTNOTE ---
Patient called & cancelled scheduled appointment this date due to having another scheduled appointment.
--- NOTE | 2021-01-15 14:37 | PTOPEVAL ---
PHYSICAL THERAPY DISCHARGE 01-15-21 Refer to the clinical summary below, for her status today, compared to the initial evaluation. Discharge PT services. She is to continue with her home exercises and increasing her activity level as tolerated. Thank you for referring Nikia East to [facility].? Please review, sign, date and return this Discharge report OWEN. I agree with and certify that the following plan of care is medically necessary. Referring Physician Date Attending Provider: Ean Dan MD Document 01/15/21 14:00 SARINA (Rec: 01/15/21 14:37 SARINA [id number]) Assessment Status Discharge Subjective Information Nikia reports: getting around Query Text:As Reported By Patient/ better, easier to get up from Family the chair, knee bending better ; easier to walk; doing home exercises; is going out and going places; use cane only when going out, in house, do not, just hold onto furniture; no falls; going to go back to fitness center and keep up with her exercises. and agrees to discharge from PT. Pain Assessment Timing of Pain Assessment Timing of Pain Assessment Assessment Pain Scale Pain Scale Used Numeric (1 - 10) Self Report Pain Assessment Left Knee(s) Reported Pain Level 7 Pain Description Aching,Dull Pain Frequency Continuous Lowest Pain Intensity 3 Greatest Pain Intensity 10 Pain Aggravating Factors Walking,Weight Bearing/ Standing Pain Behaviors Grimacing,Guarding Pain Score Pain Score 7: Self Report Interventions Used Interventions Used By Clinicians Education Pain Relief Interventions Used By Ice,Inactivity/Rest,Medication Patient Other Alleviating Interventions taking pain meds for back, helps knee pain Lower Extremity Range of Motion General Lower Extremity Range of Motion Gross Lower Extremity Range of Motion L knee extension in sitting 0' Comments Lower Extremity Muscle Strength Testing General Lower Extremity Strength Gross Lower Extremity Strength functional strength testing: L LE supine SLR x 20 reps; bridge x 14 reps- increase back pain side lying hip abduction to 10 ' x 20 reps; - single leg standing: lift leg but not able to hold; with 1 UE hold,
== END 2021-01-17 08:50 | disposition home or self-care (01) ==
LOC: ANHPT 14:00
PROVIDERS: PCP Family Medicine; Visit Provider Orthopaedic Surgery
DX: Z47.1 Aftercare following joint replacement surgery (principal); Z96.652 Presence of left artificial knee joint
CPT/HCPCS: 97014; 97110; 97140; 97161; G0283

== ENCOUNTER 2021-01-25 10:33 | Outpatient (CLI) | payer MEDICARE, SELFPAY ==
--- NOTE | ~2021-01-25 | MM_ITS ---
EXAMINATION: MM screening narciso BI w viktoria HISTORY: Screening mammogram TECHNIQUE: Craniocaudal and mediolateral oblique 3-D tomosynthesis images were obtained and synthetic 2-D images were generated. CAD analysis was submitted and interpreted. COMPARISON: No prior mammogram is available for comparison at this institution. BREAST PARENCHYMAL COMPOSITION: The breasts are almost entirely fatty. FINDINGS: Occasional bilateral benign calcifications. There is no evidence of suspicious mass, calcif ication, or architectural distortion to suggest malignancy in either breast. There has been no suspic ious interval change. IMPRESSION: 1. No mammographic evidence of malignancy. 2. Recommend routine screening mammography in one year. BI-RADS Category 2: Benign finding(s). Reviewed, dictated and finalized at location A.
--- NOTE | ~2021-01-25 | DEXA_ITS ---
Bone Density Report Name: Nikia East Age: 80 Sex: Female Ethnicity: White Date of : 1940 Indication: postmenopausal; height loss; hysterectomy; Referring Provider: Felix Landeros Study: Bone densitometry was performed. Exam Date: January 25, 2021 Accession number: [id number] Bone Density: Region BMD T-score Z-score Classification AP Spine (L1-L4) 0.949 -0.9 1.8 Normal Femoral Neck (Left) 0.689 -1.4 0.9 Osteopenia Total Hip (Left) 0.869 -0.6 1.5 Normal Total Hip Bilateral Avg 0.844 -0.8 1.3 Normal Femoral Neck (Right) 0.597 -2.3 0.1 Osteopenia Total Hip (Right) 0.818 -1.0 1.1 Normal World Health Organization criteria for BMD impression classify patients as: Normal (T-score at or above -1.0), Osteopenia (T-score between -1.0 and -2.5), or Osteoporosis (T-score at or below -2.5). 10-year Fracture Risk(1): Major Osteoporotic Fracture 16% Hip Fracture 4.8% Reported Risk Factors: [place] (), Neck BMD=0.597, BMI=36.3 (1) FRAX(R) Version 3.08. Fracture probability calculated for an untreated patient. Fracture probability may be lower if the patient has received treatment. Previous Exams: Region Exam Age BMD T-score BMD Change BMD Change Date g/cm2 vs Baseline vs Previous AP Spine(L1-L4) 01/25/2021 80 0.949 -0.9 -0.028(-2.9%)* -0.028(-2.9%)* 12/11/2016 76 0.977 -0.6 Total Hip(Left) 01/25/2021 80 0.869 -0.6 0.021(2.5%) 0.021(2.5%) 12/11/2016 76 0.848 -0.8 Total Hip(Right) 01/25/2021 80 0.818 -1.0 -0.074(-8.3%)* -0.074(-8.3%)* 12/11/2016 76 0.892 -0.4 *Denotes significance at 95% confidence level, LSC for AP Spine = 0.022 g/cm2, LSC for Total Hip = 0.027 g/cm2 Clinical Information Provided by Patient: Has used the following medications: Vitamin D, Calcium Has the following medical conditions: Hysterectomy Patient maximum height was 65.5 Menopause Age: 46 No regular weight bearing exercise Drinks caffeinated beverages Onset of menses at age 12 Number of children 5 Impression: The patient has low bone mass, based on the Right Femoral Neck T-score. The patient has an estimated ten-year risk of hip fracture of 4.8% and an estimated ten-year risk of major fracture of 16%, based on the WHO FRAX algorithm. The BMD for the AP Spine(L1-L4) decreased, changing by -2.9% since the last DXA exam. The BMD for the Total Hip(Right) decreased, changing by -8.3% since the last DXA exam. Discussion: BONE DENSI
== END 2021-01-25 10:34 | disposition home or self-care (01) ==
LOC: ANHIMG 10:34
PROVIDERS: PCP Family Medicine; Visit Provider Family Medicine
DX: Z12.31 Encounter for screening mammogram for malignant neoplasm of breast (principal); Z78.0 Asymptomatic menopausal state; M85.852 Other specified disorders of bone density and structure, left thigh; M85.851 Other specified disorders of bone density and structure, right thigh
CPT/HCPCS: 77063; 77067; 77080

== ENCOUNTER 2021-02-01 07:34 | Observation (INO) | payer MEDICARE, SELFPAY ==
--- NOTE | ~2021-02-01 | CT_ITS ---
EXAMINATION: CT brain wo con INDICATION: Altered mental status, confusion and dizziness COMPARISON: 10/09/2020 TECHNIQUE: Standard unenhanced head CT. The dose-length product (DLP) was 605.33 mGy-cm. The mA was a djusted according to patient size. Iterative reconstruction technique was employed. FINDINGS: There is no acute intraparenchymal hemorrhage. No evidence of mass lesion. No evidence of a cute infarction. There is mild periventricular and subcortical hypodensity probably related to small vessel ischemic disease. There is mild prominence of the sulci and ventricles related to cerebral atr ophy. Intracranial calcified cerebral atherosclerosis is noted. There are no extra-axial collections. There is no mass effect or midline shift. Changes in the globes are likely from ocular lens surgery. The visualized sinuses and mastoid air cells are well aerated. IMPRESSION: 1. No acute intracranial abnormality. 2. Age related findings. Reviewed, dictated and finalized at location A.
--- NOTE | ~2021-02-01 | US_ITS ---
EXAMINATION: US carotid duplex BI EXAM DATE: 02/02/2021 08:57 INDICATION: Expressive aphasia TECHNIQUE: Grayscale, color and pulsed Doppler images of the cervical carotid arteries were obtained . The degree of vessel stenosis is placed in one of the following categories: normal, <50% stenosis, 50-69% stenosis, >=70% stenosis but less than near-occlusion, near-occlusion, or occlusion. Note that percent stenosis relative to normal distal artery lumen diameter is indirectly measured from velocit y measurements as described by Taiwo, et al. Radiology 2003; [id number]:[id number]. Comparison is made to prior examination from 07/26/2020. FINDINGS: RIGHT SIDE: Right common carotid artery peak systolic velocity (PSV in cm/s): 73 Right bulb/internal carotid artery peak systolic velocity (PSV in cm/s): 77 Right internal carotid artery end diastolic velocity (EDV in cm/s): 24 Right ICA/CCA peak systolic ratio: 1.1 Right external carotid artery peak systolic velocity (PSV in cm/s): 76 Right vertebral artery antegrade flow: yes There is minimal carotid bulb plaque. Velocity and Doppler waveforms in the common and internal carotid arteries is normal. LEFT SIDE: Left common carotid artery peak systolic velocity (PSV in cm/s): 97 Left bulb/internal carotid artery peak systolic velocity (PSV in cm/s): 49 Left internal carotid artery end diastolic velocity (EDV in cm/s): 16 Left ICA/CCA peak systolic ratio: 0.5 Left external carotid artery peak systolic velocity (PSV in cm/s): 92 Left vertebral artery antegrade flow: yes There is no focal plaque identified. IMPRESSION: 1. Minimal right internal carotid artery. 2. Normal left internal carotid artery. > Reviewed, dictated and finalized at location B.
--- NOTE | ~2021-02-01 | XR_ITS ---
EXAMINATION: XR chest 2V DATE: 02/01/2021 08:20 INDICATION: Altered mental status TECHNIQUE: AP and lateral views of the chest are obtained. COMPARISON: 04/10/2019 FINDINGS: The lungs are free of acute opacities. There is no pleural effusion or pneumothorax. The ca rdiomediastinal silhouette is normal. There is moderate thoracic spondylosis. IMPRESSION: 1. No acute cardiopulmonary abnormality. Reviewed, dictated and finalized at location A.
--- NOTE | ~2021-02-01 | MR_ITS ---
EXAMINATION: MR brain/brain stem wo/w con EXAM DATE: 02/02/2021 08:46 INDICATION: Confusion TECHNIQUE: Magnetic resonance imaging (MRI) of the brain/brain stem obtained without contrast. Sagit robert T1, axial diffusion, gradient echo (T2*), T1, T2, FLAIR sequences obtained. Patient was then inj ected with 18 cc intravenous Multihance contrast. Axial and coronal postcontrast T1 weighted sequence s obtained. Correlation is made to head CT dated 02/01/2021. FINDINGS: There are no areas of restricted diffusion to suggest acute infarction. There is no acute hemorrhage seen on the T2*, a hemosiderin sensitive sequence. No intraparenchymal brain mass lesion. There is mild periventricular and subcortical T2/FLAIR signal hyperintensity, nonspecific but probab ly related to small vessel ischemic disease (microangiopathy). There is mild prominence of the sulc i and ventricles related to cerebral atrophy. There are no extra-axial collections. Flow voids are seen in the cerebral arteries on the T2-weighted sequences consistent with their expected patency. The orbits are unremarkable. Soft tissue is unremarkable. IMPRESSION: 1. No acute intracranial findings. 2. Chronic age related findings. Reviewed, dictated and finalized at location B.
--- NOTE | ~2021-02-01 | CT_ITS ---
EXAMINATION: CT abdomen pelvis w con DATE: 02/01/2021 14:33 INDICATION: Nausea and vomiting. TECHNIQUE: Computed tomography (CT) of the abdomen and pelvis was performed with 200 cc Omnipaque 350 intravenous contrast (some contrast material leaked onto the patient's arm and surrounding limitatio ns, leading to repeat scan). Automated exposure control and iterative reconstruction technique were e mployed. Exam dose: 1319.43 mGy-cm total exam DLP. COMPARISON: None. FINDINGS: There is minimal discoid atelectasis or scarring at the lung bases. Calcified hilar nodes, calcified left lower lobe pulmonary granuloma and calcified hepatic and splenic granulomas, consisten t with old granulomatous disease. Heart size is within normal range. No pericardial or pleural effusion. Status post cholecystectomy. No hepatic, splenic, pancreatic, and adrenal space-occupying mass lesion . Multiple bilateral renal cysts measuring up to 2.6 cm on the left, 2.2 cm on the left. No hydrouret eronephrosis or urinary tract obstruction. The urinary bladder is unremarkable. Normal caliber of the abdominal aorta. No intraperitoneal or retroperitoneal or pelvic mass lesion or adenopathy or ascites. There is diverticulosis of the left and right colon. There is mild fat stranding around the junction of the distal descending and proximal sigmoid colon, consistent with mild diverticulitis, without porfirio dence of abscess. No intraperitoneal free air. No bowel obstruction, bowel wall thickening, pneumatos is. Small fat-containing umbilical hernia. No suspicious osteolytic or osteoblastic lesions are noted. Moderate degenerative disc disease at L3-4, severe degenerative disc disease at L4-5. Degenerative ch gil at the apophyseal joints. Bilateral hip osteoarthritis. IMPRESSION: Mild diverticulitis at the junction of the distal descending and proximal sigmoid colon; no abscess identified Diverticulosis of left and right colon Status post cholecystectomy Bilateral renal cysts Reviewed, dictated and finalized at Location A. Reviewed, dictated and finalized at location A. IMPRESSION: Mild diverticulitis at the junction of the distal descending and p roximal sigmoid colon; no abscess identified Diverticulosis of left and right colon Status post cholecystectomy Bilateral renal cysts
[2021-02-01 07:32] VITALS: BP 131/88; PULSE 87; RESP 18; TEMP 36.6; O2SAT 96
--- NOTE | 2021-02-01 07:45 | PC.NURSE ---
patient easy to arouse and knows her name and date of . does not seem to remember this mornings events
--- NOTE | 2021-02-01 07:54 | ECG_ITS ---
Measurements Intervals [place] Rate: 82 P: 46 VA: 209 QRS: -7 QRSD: 101 T: 47 QT: 404 QTc: 474 Interpretive Statements SINUS RHYTHM WITH FIRST DEGREE AV BLOCK LEFT VENTRICULAR HYPERTROPHY MINIMAL Q WAVES- HIGH LATERAL LEADS BASELINE ARTIFACT- II, III, AVR, AVL, AVF, V1-V6 ABNORMAL ECG Electronically Signed On 02-01-2021 8:45:57 CDT by Tyshawn Marin D.O.
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
[2021-02-01 08:52] LABS: Glucose Point of Care 94 mg/dl (65-105)
[2021-02-01 09:13] LABS: Basophils Absolute Auto 0.1 K/mm3 (0.0-0.1); Basophils Percent Auto 0.7 % (0.2-1.2); Eosinophils Absolute Auto 0.1 K/mm3 (0-0.3); Eosinophils Percent Auto 0.6 % (0-4.4); Hemoglobin 13.5 g/dL (12.0-15.0); Immature Granulocyte Absolute 0.14 K/mm3 (0.00-0.031); Lymphocytes Absolute Auto 2.51 K/mm3 (0.9-3.2); Lymphocytes Percent Auto 18.8 % (18.3-44.2); Mean Corpuscular HGB Conc 30.7 g/dl (32-36); Mean Corpuscular Volume 91.3 fl (80-100); Mean Platelet Volume 9.7 fl (7.4-10.4); Monocytes Absolute Auto 0.9 K/mm3 (0.1-0.6); Neutrophils Absolute Auto 9.6 K/mm3 (1.3-6.7); Neutrophils Percent Auto 71.9 % (45.5-73.1); Platelet Count Result 435 k/mm3 (150-375); Red Blood Count 4.82 M/mm3 (4.2-5.4); Red Cell Distribution Width 16.1 % (11.5-14.5); White Blood Count 13.4 K/mm3 (4.5-10.0)
[2021-02-01 09:23] LABS: INR 0.9; Partial Thromboplastin Time 29.7 SECONDS (22.3-36.8); Prothrombin Time 12.5 Seconds (11.1-14.7)
[2021-02-01 09:30] LABS: Alanine Aminotransferase 15 U/L (4-35); Albumin Level 4.4 g/dL (3.5-5.1); Alkaline Phosphatase 52 U/L (38-126); Anion Gap 16 mmol/L (8-16); Aspartate Amino Transferase 26 U/L (14-36); Bilirubin,Total 0.7 mg/dL (0.2-1.3); Blood Urea Nitrogen 28 mg/dL (7-17); Calcium 9.8 mg/dL (8.4-10.2); Carbon Dioxide 20 mmol/L (22-30); Chloride 107 mmol/L (98-107); Estimated CRCL calculation 35 ml/min; Estimated Glomerular Filt Rate 39; Glucose 100 mg/dL (65-110); Potassium 3.8 mmol/L (3.4-5.0); Sodium 143 mmol/L (137-145)
[2021-02-01 09:31] LABS: Acetaminophen < 10 ug/mL (10-30); Ammonia < 9 umol/L (9-30); Ethanol < 10 mg/dL (<10)
[2021-02-01 09:41] LABS: Troponin I < 0.012 ng/mL (0.000-0.034)
[2021-02-01 09:50] LABS: Alveolar/Arterial O2 Gradient 39.9 mmHg; Base Excess ABG -3.6 mEq/l (+/-2.0); Fractional Inspired Oxygen 21 %; Oxygen Content ABG 16.6 %vol (16.0-22.0); Oxygen Saturation ABG 89.3 % (95.0-100.0); PO2 ABG 59.5 mmHg (80.0-100.0); PO2 FiO2 Ratio Arterial Blood 2.83 %; Total Hemoglobin 13.3 g/dL (12.0-18.0); pH ABG 7.338 (7.350-7.450)
[2021-02-01 09:55] LABS: Device ROOM AIR; Modified Allen's Test Pass; Site Drawn LEFT RADIAL
[2021-02-01] MEDS: SODIUM CHLORIDE 0.9% IV 1,000 ML 999 ML IV CONT (10:11)
[2021-02-01 10:45] LABS: Add Urine Microscopic? YES; Appearance Urine Cloudy (Clear); Bacteria Urine Trace /hpf; Bilirubin Urine Negative (Negative); Blood Urine Negative (Negative); Color Urine Yellow (Yellow); Glucose Urine UA Negative (Negative); Hyaline Casts Urine 30-49 /lpf; Ketones Urine Negative (Negative); Leukocyte Esterase Ur Negative LEU/UL (Negative); Mucus Urine Rare /lpf; Nitrate Urine Negative (Negative); Protein Urine 1+ mg/dL (Negative); RBC Urine 0-2 /hpf (0-2); Specific Grav Ur 1.019 (1.001-1.035); Urobilinogen Urine Negative mg/dL (<2.0); WBC Urine 0-3 /hpf
[2021-02-01 11:03] VITALS: BP 129/82; PULSE 89; RESP 18
[2021-02-01 11:08] LABS: Amphetamine Screen Urine Negative (Negative); Barbiturate Screen Urine Negative (Negative); Benzodiazepines Screen Urine Negative (Negative); Cannabinoid Screen Urine Negative (Negative); Cocaine Screen Urine Negative (Negative); Methadone Screen Urine Negative (Negative); Opiate Screen Urine Positive (Negative); Phencyclidine Screen Urine Negative (Negative)
[2021-02-01] MEDS: NALOXONE HCL 0.4 MG/ML VIAL IV PUSH (11:45)
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
[2021-02-01 16:00] VITALS: PULSE 97
--- NOTE | 2021-02-01 16:00 | ADMGEN ---
This patient, Nikia East, was admitted to Medical Room 255-01. Patient/family oriented to hospital policies and general routines including ID bracelet, bed and alarms, visiting hours, pain management, procedures, bathroom and other care routines, personal items, smoking policy, room service/diet, and visiting hours. Information on how to activate the Rapid Response Team has been discussed. Patient/Family are encouraged to report perceived risks to care and to ask questions if they do not understand what they are told or what they should do.
[2021-02-01 16:11] VITALS: BP 159/80; PULSE 96; RESP 18; TEMP 36.4; O2SAT 100
[2021-02-01 16:45] LABS: Glucose Point of Care 88 mg/dl (65-105)
[2021-02-01] MEDS: SODIUM CHLORIDE 0.9% IV 1,000 ML 125 ML IV CONT (17:17)
[2021-02-01 20:00] VITALS: PULSE 96
[2021-02-01] MEDS: PANTOPRAZOLE SODIUM IV 40 MG VIAL IV PUSH (20:28)
[2021-02-01 21:03] VITALS: BP 142/75; PULSE 97; RESP 16; TEMP 36.7; O2SAT 96
[2021-02-01 21:53] LABS: Glucose Point of Care 100 mg/dl (65-105)
[2021-02-01] MEDS: SIMVASTATIN 20 MG TABLET PO (23:49)
[2021-02-02] VITALS (10 sets, daily range): BP systolic 147–160; BP diastolic 61–98; PULSE 83–112; RESP 16–18; TEMP 36.6–37.4; O2SAT 94–97
[2021-02-02 05:23] LABS: Basophils Absolute Auto 0.1 K/mm3 (0.0-0.1); Basophils Percent Auto 0.5 % (0.2-1.2); Eosinophils Absolute Auto 0.1 K/mm3 (0-0.3); Eosinophils Percent Auto 0.9 % (0-4.4); Hematocrit 37.7 % (37.0-47.0); Hemoglobin 11.6 g/dL (12.0-15.0); Immature Granulocyte Absolute 0.06 K/mm3 (0.00-0.031); Immature Granulocyte Percent A 0.5 % (0-0.5); Lymphocytes Absolute Auto 3.76 K/mm3 (0.9-3.2); Lymphocytes Percent Auto 29.7 % (18.3-44.2); Mean Corpuscular HGB Conc 30.8 g/dl (32-36); Mean Corpuscular Hemoglobin 27.8 pg (26-34); Mean Corpuscular Volume 90.2 fl (80-100); Mean Platelet Volume 9.8 fl (7.4-10.4); Monocytes Absolute Auto 0.9 K/mm3 (0.1-0.6); Monocytes Percent Auto 7.4 % (2.6-8.5); Neutrophils Absolute Auto 7.7 K/mm3 (1.3-6.7); Platelet Count Result 405 k/mm3 (150-375); Red Blood Count 4.18 M/mm3 (4.2-5.4); Red Cell Distribution Width 16.2 % (11.5-14.5); White Blood Count 12.6 K/mm3 (4.5-10.0)
[2021-02-02 05:36] LABS: Lactic Acid Reflex 1.8 mmol/L (0.7-2.1)
[2021-02-02] MEDS: SODIUM CHLORIDE 0.9% IV 1,000 ML 125 ML IV CONT (05:38)
[2021-02-02] MEDS: LEVOTHYROXINE SODIUM 75 MCG TABLET PO (05:38)
[2021-02-02 05:39] LABS: Alanine Aminotransferase 14 U/L (4-35); Albumin Level 3.9 g/dL (3.5-5.1); Alkaline Phosphatase 42 U/L (38-126); Anion Gap 11 mmol/L (8-16); Aspartate Amino Transferase 28 U/L (14-36); Bilirubin,Total 0.8 mg/dL (0.2-1.3); Blood Urea Nitrogen 20 mg/dL (7-17); Calcium 9.4 mg/dL (8.4-10.2); Carbon Dioxide 22 mmol/L (22-30); Chloride 109 mmol/L (98-107); Estimated CRCL calculation 49 ml/min; Estimated Glomerular Filt Rate 60; Glucose 105 mg/dL (65-110); Magnesium 1.6 mg/dL (1.6-2.3); Potassium 3.5 mmol/L (3.4-5.0); Sodium 142 mmol/L (137-145)
[2021-02-02 06:15] LABS: Thyroid Stimulating Hormone Reflex 0.788 uIU/mL (0.465-4.68)
[2021-02-02] MEDS: PANTOPRAZOLE SODIUM IV 40 MG VIAL IV PUSH ×2 (09:07→20:06)
[2021-02-02] MEDS: GABAPENTIN 100 MG CAPSULE 200 MG PO ×2 (09:07→16:37)
[2021-02-02] MEDS: BACLOFEN 10 MG TABLET 20 MG PO ×3 (09:07→16:37)
[2021-02-02] MEDS: FUROSEMIDE 20 MG TABLET PO (09:08)
[2021-02-02] MEDS: DOCUSATE SODIUM 100 MG CAPSULE PO ×2 (09:08→16:37)
--- NOTE | 2021-02-02 11:15 | PCSTNOTE ---
Communication evaluation completed and details can be viewed in EMR. ST services are not indicated at this time, however nursing made aware to re-consult speech therapy should they have any concerns in the future. Thank you for this referral.
[2021-02-02] MEDS: DULoxetine HCL 60 MG CAPSULE.DR PO (12:10)
--- NOTE | 2021-02-02 15:37 | PM.IMPN ---
Progress Note: A&P Assessment and Plan (1) Confusion: Code(s): R41.0 - Disorientation, unspecified Status: Acute Assessment and Plan: Patient was given Narcan in the emergency room and started to wake up somewhat. Her chest x-ray and her urine are negative. The patient does appear to be dehydrated. She has mild leukocytosis. But at this point cannot find any source of infection. The patient's drug screen was found to be positive for opiates consistent with the history. Patient has chronic back pain and takes Vicodin for discomfort. She also sees pain specialist in [facility]. The patient stated that she has not been feeling well for 2 days. She felt that she was nauseated and sick to her stomach. Head CT was read as no acute intracranial abnormality. Age-related findings. Speech therapy evaluation greatly be appreciated. An echo has been ordered as well as carotid Dopplers. ABG without hypercapnia Noted dehydration with hyaline cast in urine MANJINDER and elevated BUN Ammonia negative Brain MRI pending (2) Elevated WBC count: Code(s): D72.829 - Elevated white blood cell count, unspecified Status: Acute Assessment and Plan: Urine and chest x-ray are within normal limits. CT of the abdomen showed diverticulitis mild started on Zosyn will continue same clinically improving WBC count improved (3) Hypothyroidism, unspecified: Qualifiers: Hypothyroidism type: acquired Qualified Code(s): E03.9 - Hypothyroidism, unspecified Code(s): E03.9 - Hypothyroidism, unspecified Status: Chronic Assessment and Plan: Check thyroid level. Continue with levothyroxine. (4) Esophageal dysphagia: Code(s): R13.19 - Other dysphagia Status: Acute Assessment and Plan: IV Protonix (5) Depression with anxiety: Code(s): F41.8 - Other specified anxiety disorders Status: Acute Assessment and Plan: Continue with home medications. (6) Essential (primary) hypertension: Code(s): I10 - Essential (primary) hypertension Status: Chronic Assessment and Plan: Hold lisinopril due to acute kidney injury (7) Restless legs syndrome: Code(s): G25.81 - Restless legs syndrome Status: Chronic Assessment and Plan: Continue with home medication. (8) Generalized anxiety disorder: Code(s): F41.1 - Generalized anxiety disorder Status: Chronic Assessment and Plan: Continue with home medication. (9) Hyperlipidemia, unspecified: Qualifiers: Hyperlipidemia type: mixed hyperlipidemia Qualified Code(s): E78.2 - Mixed hyperlipidemia Code(s): E78.5 - Hyperlipidemia, unspecified Status: Chronic Assessment and Plan: Continue with home medication. (10) Diverticulitis: Code(s): K57.92 - Diverticulitis of intestine, part unspecified, without perforation or abscess without bleeding Status: Acute Assessment and Plan: Jefry Anderson found on CT abdomen Does report nausea and vomiting recently Clinically improved (11) Back pain: Qualifiers: Back pain location: low back pain Chronicity: chronic Back pain laterality: unspecified Sciatica presence: without sciatica Qualified Code(s): M54.5 - Low back pain; G89.29 - Other chronic pain Code(s): M54.9 - Dorsalgia, unspecified Status: Acute Assessment and Plan: On [place] and baclofen Sees pain specialist in [facility] (12) Lumbar spine pain: Code(s): M54.5 - Low back pain Status: Acute Subjective Date/time seen: 02/02/21 15:37 Interval history: HPI: this is a 80-year-old female patient who lives with her . The patient was brought into the emergency room today for evaluation altered mental status. The patient takes chronic opiates for chronic back pain. For the family reported that the patient was found to be unresponsive this morning and difficult to arouse.
[2021-02-02] MEDS: lisinopriL 10 MG TABLET PO (16:37)
[2021-02-02] MEDS: SIMVASTATIN 20 MG TABLET PO (20:06)
[2021-02-03] VITALS (9 sets, daily range): BP systolic 131–175; BP diastolic 70–78; PULSE 72–100; RESP 16–18; TEMP 35.9–37.2; O2SAT 94–96
--- NOTE | 2021-02-03 | ECHO_ITS ---
Patient Info Name: Nikia East Age: 80 years : 1940 Gender: Female Ht: 66 in Wt: 198 lbs BSA: 2.08 m2 HR: 78 bpm BP: 175 / 78 mmHg Heart Rhythm: Sinus Rhythm Technical Quality: Fair Exam Date: 02/03/2021 9:18 AM Exam Location: [facility] Pul[facility] Patient Status: Inpatient Admit Date: 02/01/2021 Staff Ordering Physician: Nancy Song NP Smt Operator: Aicha Bowen RDCS Attending Provider: Osmel Sotomayor MD Referring Physician: Duncan FISHER; Exam Type: CA echo doppler color flow Study Info Indications - CONFUSION Complete two-dimensional, color flow and Doppler transthoracic echocardiogram is performed. Summary 1. Complete two-dimensional, color flow and Doppler transthoracic echocardiogram is performed. 2. Left ventricular chamber dimension is normal. 3. Left ventricular systolic function is hyperdynamic, estimated at >70%. 4. The left ventricular diastolic function is grade I diastolic dysfunction. 5. Left atrial chamber dimension is mildly enlarged. 6. No significant valvular dysfunction. Left Ventricle Left ventricular chamber dimension is normal. Left ventricular systolic function is hyperdynamic, estimated at >70%. The left ventricular diastolic function is grade I diastolic dysfunction. Right Ventricle Right ventricular chamber dimension is normal. Left Atria Left atrial chamber dimension is mildly enlarged. Right Atria Right atrial chamber dimension is normal. Aortic Valve The aortic valve is normal. Pulmonic Valve The pulmonic valve is not well visualized. Mitral Valve The mitral valve has normal leaflets. Tricuspid Valve The tricuspid valve leaflets are normal. Pericardium/Pleural The pericardium appears normal. Aorta The aortic root size at the sinus of Valsalva is normal. Left Ventricular Outflow Tract Name Value Normal LVOT 2D LVOT Diameter 2.0 cm LVOT Doppler LVOT Peak Gradient 6 mmHg LVOT Mean Gradient 3 mmHg LVOT VTI 22 cm LVOT VTI/AV VTI Ratio 0.9 LVOT Stroke Volume 68 ml LVOT CO 5.9 l/min LVOT CI 2.8 l/min/m2 Pulmonic Valve Name Value Normal RVOT Doppler RVOT Peak Gradient 2 mmHg PV Doppler PV Peak Gradient 5 mmHg Mitral Valve Name Value Normal MV Doppler MV Decel Vance 423 cm/s2
[2021-02-03 05:45] LABS: Basophils Absolute Auto 0.1 K/mm3 (0.0-0.1); Basophils Percent Auto 0.7 % (0.2-1.2); Eosinophils Absolute Auto 0.3 K/mm3 (0-0.3); Eosinophils Percent Auto 1.9 % (0-4.4); Hemoglobin 12.6 g/dL (12.0-15.0); Immature Granulocyte Absolute 0.05 K/mm3 (0.00-0.031); Immature Granulocyte Percent A 0.3 % (0-0.5); Mean Corpuscular HGB Conc 32.3 g/dl (32-36); Mean Corpuscular Hemoglobin 28.6 pg (26-34); Mean Corpuscular Volume 88.6 fl (80-100); Mean Platelet Volume 9.3 fl (7.4-10.4); Monocytes Absolute Auto 0.9 K/mm3 (0.1-0.6); Monocytes Percent Auto 6.5 % (2.6-8.5); Neutrophils Absolute Auto 9.2 K/mm3 (1.3-6.7); Neutrophils Percent Auto 63.6 % (45.5-73.1); Platelet Count Result 407 k/mm3 (150-375); Red Cell Distribution Width 16.1 % (11.5-14.5); White Blood Count 14.4 K/mm3 (4.5-10.0)
[2021-02-03 06:05] LABS: Anion Gap 12 mmol/L (8-16); Blood Urea Nitrogen 13 mg/dL (7-17); Calcium 9.8 mg/dL (8.4-10.2); Carbon Dioxide 25 mmol/L (22-30); Chloride 107 mmol/L (98-107); Estimated CRCL calculation 55 ml/min; Estimated Glomerular Filt Rate > 60; Glucose 102 mg/dL (65-110); Potassium 3.6 mmol/L (3.4-5.0); Sodium 144 mmol/L (137-145)
[2021-02-03] MEDS: LEVOTHYROXINE SODIUM 75 MCG TABLET PO (06:46)
--- NOTE | 2021-02-03 08:12 | PM.IMPN ---
Progress Note: A&P Assessment and Plan (1) Confusion: Code(s): R41.0 - Disorientation, unspecified Status: Acute Assessment and Plan: Patient was given Narcan in the emergency room and started to wake up somewhat. Her chest x-ray and her urine are negative. The patient does appear to be dehydrated. She has mild leukocytosis. But at this point cannot find any source of infection. The patient's drug screen was found to be positive for opiates consistent with the history. Patient has chronic back pain and takes Vicodin for discomfort. She also sees pain specialist in [facility]. The patient stated that she has not been feeling well for 2 days. She felt that she was nauseated and sick to her stomach. Head CT was read as no acute intracranial abnormality. Age-related findings. Speech therapy evaluation greatly be appreciated. An echo has been ordered as well as carotid Dopplers. ABG without hypercapnia Noted dehydration with hyaline cast in urine MANJINDER and elevated BUN Ammonia negative Brain MRI normal Carotid Doppler no significant stenosis (2) Elevated WBC count: Code(s): D72.829 - Elevated white blood cell count, unspecified Status: Acute Assessment and Plan: Urine and chest x-ray are within normal limits. CT of the abdomen showed diverticulitis mild started on Zosyn will continue same clinically improving WBC count up again today (3) Hypothyroidism, unspecified: Qualifiers: Hypothyroidism type: acquired Qualified Code(s): E03.9 - Hypothyroidism, unspecified Code(s): E03.9 - Hypothyroidism, unspecified Status: Chronic Assessment and Plan: Thyroid level normal. Continue with levothyroxine. (4) Esophageal dysphagia: Code(s): R13.19 - Other dysphagia Status: Acute Assessment and Plan: IV Protonix (5) Depression with anxiety: Code(s): F41.8 - Other specified anxiety disorders Status: Acute Assessment and Plan: Continue with home medications. (6) Essential (primary) hypertension: Code(s): I10 - Essential (primary) hypertension Status: Chronic Assessment and Plan: Hold lisinopril due to acute kidney injury Blood pressure creeping up has restarted lisinopril (7) Restless legs syndrome: Code(s): G25.81 - Restless legs syndrome Status: Chronic Assessment and Plan: Continue with home medication. (8) Generalized anxiety disorder: Code(s): F41.1 - Generalized anxiety disorder Status: Chronic Assessment and Plan: Continue with home medication. (9) Hyperlipidemia, unspecified: Qualifiers: Hyperlipidemia type: mixed hyperlipidemia Qualified Code(s): E78.2 - Mixed hyperlipidemia Code(s): E78.5 - Hyperlipidemia, unspecified Status: Chronic Assessment and Plan: Continue with home medication. (10) Diverticulitis: Code(s): K57.92 - Diverticulitis of intestine, part unspecified, without perforation or abscess without bleeding Status: Acute Assessment and Plan: Jefry Mild found on CT abdomen Does report nausea and vomiting recently Clinically improved dot WBC slightly up today will recheck it again tomorrow (11) Back pain: Qualifiers: Back pain laterality: unspecified Back pain location: low back pain Chronicity: chronic Sciatica presence: without sciatica Qualified Code(s): M54.5 - Low back pain; G89.29 - Other chronic pain Code(s): M54.9 - Dorsalgia, unspecified Status: Acute Assessment and Plan: On [place] and baclofen Sees pain specialist in [facility] (12) Lumbar spine pain: Code(s): M54.5 - Low back pain Status: Acute Subjective Date/time seen: 02/03/21 08:12 Interval history: HPI: this is a 80-year-old female patient who lives with her . The patient was brought into the emergency room today for evaluation altered mental status. The patient
[2021-02-03] MEDS: GABAPENTIN 100 MG CAPSULE 200 MG PO ×2 (08:21→17:18)
[2021-02-03] MEDS: DOCUSATE SODIUM 100 MG CAPSULE PO ×2 (08:21→17:18)
[2021-02-03] MEDS: PANTOPRAZOLE SODIUM IV 40 MG VIAL IV PUSH ×2 (08:21→20:11)
[2021-02-03] MEDS: lisinopriL 10 MG TABLET PO (08:21)
[2021-02-03] MEDS: BACLOFEN 10 MG TABLET 20 MG PO ×3 (08:21→17:18)
[2021-02-03] MEDS: ACETAMINOPHEN 325 MG TABLET 650 MG PO ×2 (09:30→20:14)
[2021-02-03] MEDS: DULoxetine HCL 60 MG CAPSULE.DR PO (12:25)
[2021-02-03] MEDS: SIMVASTATIN 20 MG TABLET PO (20:11)
[2021-02-04] VITALS (11 sets, daily range): BP systolic 151–157; BP diastolic 62–89; PULSE 74–95; RESP 16–20; TEMP 36.6–37.1; O2SAT 93–99
[2021-02-04 05:12] LABS: Basophils Absolute Auto 0.1 K/mm3 (0.0-0.1); Basophils Percent Auto 0.6 % (0.2-1.2); Eosinophils Absolute Auto 0.2 K/mm3 (0-0.3); Eosinophils Percent Auto 2.1 % (0-4.4); Hematocrit 38.9 % (37.0-47.0); Hemoglobin 12.1 g/dL (12.0-15.0); Immature Granulocyte Absolute 0.04 K/mm3 (0.00-0.031); Immature Granulocyte Percent A 0.4 % (0-0.5); Lymphocytes Absolute Auto 3.19 K/mm3 (0.9-3.2); Lymphocytes Percent Auto 28.2 % (18.3-44.2); Mean Corpuscular HGB Conc 31.1 g/dl (32-36); Mean Corpuscular Hemoglobin 28.6 pg (26-34); Mean Platelet Volume 9.3 fl (7.4-10.4); Monocytes Absolute Auto 0.8 K/mm3 (0.1-0.6); Monocytes Percent Auto 6.9 % (2.6-8.5); Neutrophils Percent Auto 61.8 % (45.5-73.1); Platelet Count Result 361 k/mm3 (150-375); Red Blood Count 4.23 M/mm3 (4.2-5.4); Red Cell Distribution Width 16.1 % (11.5-14.5); White Blood Count 11.3 K/mm3 (4.5-10.0)
[2021-02-04 05:27] LABS: Anion Gap 10 mmol/L (8-16); Blood Urea Nitrogen 12 mg/dL (7-17); Calcium 9.9 mg/dL (8.4-10.2); Carbon Dioxide 27 mmol/L (22-30); Chloride 106 mmol/L (98-107); Estimated CRCL calculation 55 ml/min; Estimated Glomerular Filt Rate > 60; Glucose 106 mg/dL (65-110); Potassium 3.7 mmol/L (3.4-5.0); Sodium 143 mmol/L (137-145)
[2021-02-04] MEDS: LEVOTHYROXINE SODIUM 75 MCG TABLET PO (06:14)
[2021-02-04] MEDS: ACETAMINOPHEN 325 MG TABLET 650 MG PO (06:17)
[2021-02-04] MEDS: GABAPENTIN 100 MG CAPSULE 200 MG PO ×2 (08:10→17:15)
[2021-02-04] MEDS: lisinopriL 10 MG TABLET PO (08:10)
[2021-02-04] MEDS: BACLOFEN 10 MG TABLET 20 MG PO ×3 (08:10→17:15)
[2021-02-04] MEDS: DOCUSATE SODIUM 100 MG CAPSULE PO ×2 (08:10→17:15)
[2021-02-04] MEDS: PANTOPRAZOLE SODIUM IV 40 MG VIAL IV PUSH ×2 (08:11→20:37)
--- NOTE | 2021-02-04 11:23 | PC.NURSE ---
On 02/04/21, the student, [Christie Sanders ], provided care and completed [facility] documentation on this patient. I have reviewed the student's documentation and agree with the findings.
[2021-02-04] MEDS: DULoxetine HCL 60 MG CAPSULE.DR PO (12:13)
--- NOTE | 2021-02-04 14:12 | PCPTNOTE ---
On 02/04/21, the student, Adarsh Menendez, provided care and completed [facility] documentation on this patient. I have reviewed the student's documentation and agree with the findings.
--- NOTE | 2021-02-04 15:39 | PM.IMPN ---
Progress Note: A&P Assessment and Plan (1) Confusion: Code(s): R41.0 - Disorientation, unspecified Status: Acute Assessment and Plan: Patient was given Narcan in the emergency room and started to wake up somewhat. Her chest x-ray and her urine are negative. The patient does appear to be dehydrated. She has mild leukocytosis. But at this point cannot find any source of infection. The patient's drug screen was found to be positive for opiates consistent with the history. Patient has chronic back pain and takes Vicodin for discomfort. She also sees pain specialist in [facility]. The patient stated that she has not been feeling well for 2 days. She felt that she was nauseated and sick to her stomach. Head CT was read as no acute intracranial abnormality. Age-related findings. Speech therapy evaluation greatly be appreciated. An echo has been ordered as well as carotid Dopplers. ABG without hypercapnia Noted dehydration with hyaline cast in urine MANJINDER and elevated BUN Ammonia negative Brain MRI normal Carotid Doppler no significant stenosis 02/04/21 15:39 patient 80 years old female with history of back pain taking pain medication and was found unresponsive patient was given Narcan which did improve her mentation and she responded, and patient was found positive for opiate, incidentally patient also found to mild colitis and being treated Zosyn, currently patient denies any abdominal pain nausea or vomiting unable to tolerate her diet, is able to function to her baseline with physical therapy, will monitor patient 1 more day discharge the patient tomorrow. her is present in the room (2) Elevated WBC count: Code(s): D72.829 - Elevated white blood cell count, unspecified Status: Acute Assessment and Plan: Urine and chest x-ray are within normal limits. CT of the abdomen showed diverticulitis mild started on Zosyn will continue same clinically improving WBC count up again today (3) Hypothyroidism, unspecified: Qualifiers: Hypothyroidism type: acquired Qualified Code(s): E03.9 - Hypothyroidism, unspecified Code(s): E03.9 - Hypothyroidism, unspecified Status: Chronic Assessment and Plan: Thyroid level normal. Continue with levothyroxine. (4) Esophageal dysphagia: Code(s): R13.19 - Other dysphagia Status: Acute Assessment and Plan: IV Protonix (5) Depression with anxiety: Code(s): F41.8 - Other specified anxiety disorders Status: Acute Assessment and Plan: Continue with home medications. (6) Essential (primary) hypertension: Code(s): I10 - Essential (primary) hypertension Status: Chronic Assessment and Plan: Hold lisinopril due to acute kidney injury Blood pressure creeping up has restarted lisinopril (7) Restless legs syndrome: Code(s): G25.81 - Restless legs syndrome Status: Chronic Assessment and Plan: Continue with home medication. (8) Generalized anxiety disorder: Code(s): F41.1 - Generalized anxiety disorder Status: Chronic Assessment and Plan: Continue with home medication. (9) Hyperlipidemia, unspecified: Qualifiers: Hyperlipidemia type: mixed hyperlipidemia Qualified Code(s): E78.2 - Mixed hyperlipidemia Code(s): E78.5 - Hyperlipidemia, unspecified Status: Chronic Assessment and Plan: Continue with home medication. (10) Diverticulitis: Code(s): K57.92 - Diverticulitis of intestine, part unspecified, without perforation or abscess without bleeding Status: Acute Assessment and Plan: [place] Mild found on CT abdomen Does report nausea and vomiting recently Clinically improved dot WBC slightly up today will recheck it again tomorrow (11) Back pain: Qualifiers: Back pain location: low back pain Chronicity: chronic Back pain laterality: unspecified Sciatica presence: with
[2021-02-04] MEDS: SIMVASTATIN 20 MG TABLET PO (20:37)
[2021-02-05] VITALS: PULSE 91
[2021-02-05 04:00] VITALS: PULSE 79
[2021-02-05] MEDS: LEVOTHYROXINE SODIUM 75 MCG TABLET PO (05:42)
[2021-02-05 05:45] VITALS: BP 153/89; PULSE 69; RESP 18; TEMP 36.9; O2SAT 96
[2021-02-05] MEDS: DOCUSATE SODIUM 100 MG CAPSULE PO (07:59)
[2021-02-05] MEDS: ERGOCALCIFEROL 50,000 UNIT CAPSULE 50000 UNITS PO (07:59)
[2021-02-05] MEDS: PANTOPRAZOLE SODIUM IV 40 MG VIAL IV PUSH (07:59)
[2021-02-05] MEDS: lisinopriL 10 MG TABLET PO (07:59)
[2021-02-05] MEDS: BACLOFEN 10 MG TABLET 20 MG PO (07:59)
[2021-02-05] MEDS: GABAPENTIN 100 MG CAPSULE 200 MG PO (07:59)
[2021-02-05 08:00] VITALS: PULSE 92
--- NOTE | 2021-02-05 10:15 | PM.DS ---
DS: Admitting Diagnosis Discharge Date 02/05/2021 Admitting Diagnosis confusion DS: Discharge Diagnosis Discharge Diagnosis (1) Confusion: Code(s): R41.0 - Disorientation, unspecified Status: Acute Assessment and Plan: Patient was given Narcan in the emergency room and started to wake up somewhat. Her chest x-ray and her urine are negative. The patient does appear to be dehydrated. She has mild leukocytosis. But at this point cannot find any source of infection. The patient's drug screen was found to be positive for opiates consistent with the history. Patient has chronic back pain and takes Vicodin for discomfort. She also sees pain specialist in [facility]. The patient stated that she has not been feeling well for 2 days. She felt that she was nauseated and sick to her stomach. Head CT was read as no acute intracranial abnormality. Age-related findings. Speech therapy evaluation greatly be appreciated. An echo has been ordered as well as carotid Dopplers. ABG without hypercapnia Noted dehydration with hyaline cast in urine MANJINDER and elevated BUN Ammonia negative Brain MRI normal Carotid Doppler no significant stenosis 02/04/21 15:39 patient 80 years old female with history of back pain taking pain medication and was found unresponsive patient was given Narcan which did improve her mentation and she responded, and patient was found positive for opiate, incidentally patient also found to mild colitis and being treated Zosyn, currently patient denies any abdominal pain nausea or vomiting unable to tolerate her diet, is able to function to her baseline with physical therapy, will monitor patient 1 more day discharge the patient tomorrow. her is present in the room (2) Elevated WBC count: Code(s): D72.829 - Elevated white blood cell count, unspecified Status: Acute Assessment and Plan: Urine and chest x-ray are within normal limits. CT of the abdomen showed diverticulitis mild started on Zosyn will continue same clinically improving WBC count up again today (3) Hypothyroidism, unspecified: Qualifiers: Hypothyroidism type: acquired Qualified Code(s): E03.9 - Hypothyroidism, unspecified Code(s): E03.9 - Hypothyroidism, unspecified Status: Chronic Assessment and Plan: Thyroid level normal. Continue with levothyroxine. (4) Esophageal dysphagia: Code(s): R13.19 - Other dysphagia Status: Acute Assessment and Plan: IV Protonix (5) Depression with anxiety: Code(s): F41.8 - Other specified anxiety disorders Status: Acute Assessment and Plan: Continue with home medications. (6) Essential (primary) hypertension: Code(s): I10 - Essential (primary) hypertension Status: Chronic Assessment and Plan: Hold lisinopril due to acute kidney injury Blood pressure creeping up has restarted lisinopril (7) Restless legs syndrome: Code(s): G25.81 - Restless legs syndrome Status: Chronic Assessment and Plan: Continue with home medication. (8) Generalized anxiety disorder: Code(s): F41.1 - Generalized anxiety disorder Status: Chronic Assessment and Plan: Continue with home medication. (9) Hyperlipidemia, unspecified: Qualifiers: Hyperlipidemia type: mixed hyperlipidemia Qualified Code(s): E78.2 - Mixed hyperlipidemia Code(s): E78.5 - Hyperlipidemia, unspecified Status: Chronic Assessment and Plan: Continue with home medication. (10) Diverticulitis: Code(s): K57.92 - Diverticulitis of intestine, part unspecified, without perforation or abscess without bleeding Status: Acute Assessment and Plan: Jefry Mild found on CT abdomen Does report nausea and vomiting recently Clinically improved dot WBC slightly up today will recheck it again tomorrow (11) Back pain: Qualifiers: Back pain location: l
[2021-02-05 12:00] VITALS: PULSE 86
== END 2021-02-05 12:55 | disposition home or self-care (01) ==
LOC: ANHED 13:00 → ANH2MED 18:27
PROVIDERS: Nurse Practitioner; Admitting Provider Internal Medicine; Emergency Provider General Practice; PCP Family Medicine; Visit Provider Family Medicine
DX: R41.0 Disorientation, unspecified (principal); D72.829 Elevated white blood cell count, unspecified; E03.9 Hypothyroidism, unspecified; R47.01 Aphasia; G89.29 Other chronic pain; M54.9 Dorsalgia, unspecified; K57.92 Diverticulitis of intestine, part unspecified, without perforation or abscess without bleeding; N28.1 Cyst of kidney, acquired; R13.19 Other dysphagia; I10 Essential (primary) hypertension; E78.5 Hyperlipidemia, unspecified; F41.8 Other specified anxiety disorders; G25.81 Restless legs syndrome; Z79.899 Other long term (current) drug therapy
CPT/HCPCS: 36415; 36600; 70450; 70553; 71046; 74177; 80048; 80053; 80307; 81001; 82140; 82805; 82948; 83605; 83735; 84443; 84484; 85025; 85610; 85730; 92523; 93005; 93306; 93880; 96361; 96365; 96366; 96375; 96376; 97161; 97165; 99285; A9270; A9577; C9113; G0378; J2310; J2543; J7030; Q9967

== ENCOUNTER 2021-06-03 00:55 | Day surgery (SDC) | payer MEDICARE, SELFPAY ==
[2021-05-28 12:52] VITALS: BMI 34.7
[2021-06-03 08:22] VITALS: BP 148/99; PULSE 103; RESP 20; TEMP 36.7; O2SAT 97; BMI 34.6
[2021-06-03] MEDS: LACTATED RINGERS 1,000 ML 150 ML IV CONT (08:32)
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
[2021-06-03] MEDS: BENZOCAINE (*SP) 60 ML SPRAY CAN (HURRICAINE) 1 SPRAY MUCOUS MEM (09:45)
--- NOTE | 2021-06-03 10:09 | SUR.OPER ---
EGD START: 945; END: 950. COLONOSCOPY START: 957; END: 1007.
[2021-06-03 10:11] VITALS: BP 155/83; PULSE 74; RESP 25; TEMP 36.7; O2SAT 92
[2021-06-03 10:21] VITALS: BP 151/66; PULSE 85; RESP 19; O2SAT 98
[2021-06-03 10:31] VITALS: BP 147/78; PULSE 82; RESP 22; O2SAT 100
== END 2021-06-03 10:40 | disposition home or self-care (01) ==
PROVIDERS: PCP Family Medicine; Visit Provider Internal Medicine Gastroenterology
PROC: 0DJ08ZZ Inspection of Upper Intestinal Tract, Via Natural or Artificial Opening Endoscopic (ICD-10-PCS; CPT 43235; principal; 2021-06-03 09:30)
DX: Z12.11 Encounter for screening for malignant neoplasm of colon (principal); K57.30 Diverticulosis of large intestine without perforation or abscess without bleeding; K64.4 Residual hemorrhoidal skin tags; K22.2 Esophageal obstruction; K44.9 Diaphragmatic hernia without obstruction or gangrene; K29.50 Unspecified chronic gastritis without bleeding; I10 Essential (primary) hypertension; E78.5 Hyperlipidemia, unspecified; E03.9 Hypothyroidism, unspecified; E55.9 Vitamin D deficiency, unspecified; F41.8 Other specified anxiety disorders; G25.81 Restless legs syndrome; E66.9 Obesity, unspecified; Z68.34 Body mass index [BMI] 34.0-34.9, adult
CPT/HCPCS: 43249; 43239; G0121; 88305; C1726; J2704; J7120

== ENCOUNTER 2021-07-04 16:49 | Inpatient (IN) | payer MEDICARE, SELFPAY ==
--- NOTE | ~2021-07-04 | XR_ITS ---
EXAMINATION: XR chest 1V portable EXAM DATE: 07/04/2021 18:12 INDICATION: Altered mental status, transient alteration of awareness. TECHNIQUE: Portable AP frontal chest x-ray was obtained. Comparison is made to prior examination from 02/01/2021. FINDINGS: Left basilar granuloma. The lungs are otherwise clear. There are no pleural effusions. Th e cardiomediastinal silhouette is within normal limits. There is no pneumothorax suspected. There a re bony degenerative changes. There is no significant interval change. IMPRESSION: No acute cardiopulmonary findings. Reviewed, dictated and finalized at location G.
--- NOTE | ~2021-07-04 | CT_ITS ---
EXAMINATION: CT brain wo [facility] EXAM DATE: 07/04/2021 18:09 INDICATION: Altered mental status. Temporary change in awareness. TECHNIQUE: Spiral CT of the head was performed without contrast. Axial, coronal and sagittal images were reviewed. The dose-length product (DLP) for this examination was 605.33 mGy-cm. The exposure w as tailored according to patient size, and iterative reconstruction (ASIR) was used as additional dos e reduction technique. Comparison is made to prior examination from 02/01/2021. FINDINGS: There is no acute intraparenchymal hemorrhage. No evidence of intraparenchymal brain mass lesion. No evidence of acute infarction. Please note that initial head CT has limited sensitivity f or small or acute infarctions. There is mild periventricular and subcortical hypodensity, nonspecific but probably related to small vessel ischemic disease. There is moderate prominence of the sulci a nd ventricles related to cerebral atrophy. There is intracranial carotid arteriosclerosis. There a re no extra-axial collections. There is no mass effect or midline shift. Patient has had bilateral ocular lens surgery. Soft tissue is unremarkable. The visualized sinuses and mastoid air cells are well aerated. IMPRESSION: 1. No acute intracranial findings. 2. Chronic age related findings. Reviewed, dictated and finalized at location G.
--- NOTE | ~2021-07-04 | MR_ITS ---
EXAMINATION: MR brain/brain stem wo/w con DATE: 07/05/2021 14:01 INDICATION: Altered mental status TECHNIQUE: Magnetic resonance imaging (MRI) of the brain and brainstem was performed without and with 17 mL Multihance intravenous contrast. Sequences included sagittal and axial T1-weighted SE, axial d iffusion-weighted FS SE, axial T2*-weighted GRE, axial T2-weighted FLAIR, and axial T2-weighted FSE. Postcontrast axial, sagittal and coronal T1-weighted SE was obtained. Apparent diffusion coefficient (ADC) maps were created. COMPARISON: 02/02/2021 FINDINGS: There are no areas of restricted diffusion to suggest acute infarction. No intracranial hemorrhage or abnormal intracranial mass lesion. No interval change in mild scattered areas of nonspecific increas ed T2-weighted signal intensity in the cerebral white matter, predominantly involving the deep and pe riventricular white matter which is within normal limits for age and likely sequela of chronic small vessel ischemic disease. There are no intraparenchymal signal abnormalities seen on the other pulse s equences. The ventricles are symmetric and normal in size. There are no abnormal extra-axial fluid co llections. Flow voids are seen in the cerebral arteries on the T2-weighted sequences consistent with their expected patency. Mild mucosal thickening at the bilateral ethmoid sinuses. Visualized orbits a nd soft tissues are unremarkable. There are no areas of abnormal enhancement on the post contrast aristides ges. IMPRESSION: 1. No acute intracranial process or abnormally enhancing brain lesions. 2. A few unchanged scattered small foci of white matter T2 hyperintensity consistent with chronic sma ll vessel ischemic disease. Reviewed, dictated and finalized at location A. IMPRESSION: 1. No acute intracranial process or abnormally enhancing brain lesions. 2. A few unchanged scattered small foci of white matter T2 hyperintensity consi stent with chronic small vessel ischemic disease.
[2021-07-04 16:52] VITALS: BP 183/120; PULSE 119; RESP 16; TEMP 36.8; O2SAT 98
--- NOTE | 2021-07-04 17:09 | ECG_ITS ---
Measurements Intervals [employer] Rate: 98 P: 31 KS: 180 QRS: 1 QRSD: 94 T: 42 QT: 367 QTc: 469 Interpretive Statements BASELINE MOTION ARTIFACT PRESENT SINUS RHYTHM POSSIBLE LEFT ATRIAL ENLARGEMENT [-0.1mV P WAVE IN V1/V2] POSSIBLE LEFT VENTRICULAR HYPERTROPHY [VOLTAGE CRITERIA PLUS LAE OR QRS WIDENING] COMPARED TO ECG 02/01/2021 08:02:00 KS INTERVAL SLIGHTLY SHORTER Electronically Signed On 07-05-2021 8:33:57 CDT by Sanchez Escalona M.D.
[2021-07-04 17:37] LABS: Basophils Absolute Auto 0.1 K/mm3 (0.0-0.1); Basophils Percent Auto 0.8 % (0.2-1.2); Eosinophils Absolute Auto 0.1 K/mm3 (0-0.3); Eosinophils Percent Auto 0.4 % (0-4.4); Hematocrit 41.4 % (37.0-47.0); Hemoglobin 13.1 g/dL (12.0-15.0); Immature Granulocyte Absolute 0.05 K/mm3 (0.00-0.031); Immature Granulocyte Percent A 0.4 % (0-0.5); Lymphocytes Absolute Auto 4.29 K/mm3 (0.9-3.2); Lymphocytes Percent Auto 32.9 % (18.3-44.2); Mean Corpuscular HGB Conc 31.6 g/dl (32-36); Mean Corpuscular Hemoglobin 29.3 pg (26-34); Mean Corpuscular Volume 92.6 fl (80-100); Mean Platelet Volume 9.7 fl (7.4-10.4); Monocytes Absolute Auto 1.1 K/mm3 (0.1-0.6); Monocytes Percent Auto 8.4 % (2.6-8.5); Neutrophils Absolute Auto 7.4 K/mm3 (1.3-6.7); Neutrophils Percent Auto 57.1 % (45.5-73.1); Platelet Count Result 430 k/mm3 (150-375); Red Blood Count 4.47 M/mm3 (4.2-5.4); Red Cell Distribution Width 14.9 % (11.5-14.5)
[2021-07-04 17:46] LABS: Add Urine Microscopic? YES; Amorphous Sediment Urine Few; Appearance Urine Cloudy (Clear); Bacteria Urine Trace /hpf; Bilirubin Urine Negative (Negative); Blood Urine Negative (Negative); Color Urine Amber (Yellow); Glucose Urine UA Negative (Negative); Hyaline Casts Urine 30-49 /lpf; Ketones Urine Negative (Negative); Leukocyte Esterase Ur Negative LEU/UL (Negative); Mucus Urine Heavy /lpf; Nitrate Urine Negative (Negative); Protein Urine 2+ mg/dL (Negative); Specific Grav Ur 1.029 (1.001-1.035); Squamous Epithelial Cell Urine Few /hpf (Few); Urobilinogen Urine Negative mg/dL (<2.0)
[2021-07-04 17:47] LABS: Alanine Aminotransferase 21 U/L (4-35); Albumin Level 4.4 g/dL (3.5-5.1); Alkaline Phosphatase 46 U/L (38-126); Anion Gap 13 mmol/L (8-16); Aspartate Amino Transferase 41 U/L (14-36); Bilirubin,Total 1.1 mg/dL (0.2-1.3); Blood Urea Nitrogen 31 mg/dL (7-17); Calcium 9.6 mg/dL (8.4-10.2); Carbon Dioxide 20 mmol/L (22-30); Chloride 106 mmol/L (98-107); Estimated CRCL calculation 45 ml/min; Estimated Glomerular Filt Rate 48; Glucose 131 mg/dL (65-110); Sodium 139 mmol/L (137-145)
[2021-07-04 17:48] LABS: Prothrombin Time 13.1 Seconds (11.1-14.7)
[2021-07-04 17:49] LABS: Partial Thromboplastin Time 30.8 SECONDS (22.3-36.8)
[2021-07-04] MEDS: SODIUM CHLORIDE 0.9% IV 1,000 ML 999 ML IV CONT (18:37)
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
[2021-07-04 18:38] VITALS: BP 166/63; PULSE 84; RESP 16; O2SAT 99
[2021-07-04] MEDS: SODIUM CHLORIDE 0.9% IV 1,000 ML 125 ML IV CONT (19:47)
[2021-07-04] MEDS: POTASSIUM CHLORIDE 20 MEQ TABLET 40 MEQ PO (19:47)
[2021-07-04 20:33] VITALS: BP 168/78; PULSE 98; RESP 18; O2SAT 99
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
[2021-07-04 21:12] VITALS: BMI 33.7
--- NOTE | 2021-07-04 21:18 | ADMGEN ---
This patient, Nikia East, was admitted to 3 Med Surg Room 333-01. Patient/family oriented to hospital policies and general routines including ID bracelet, bed and alarms, visiting hours, pain management, procedures, bathroom and other care routines, personal items, smoking policy, room service/diet, and visiting hours. Information on how to activate the Rapid Response Team has been discussed. Patient/Family are encouraged to report perceived risks to care and to ask questions if they do not understand what they are told or what they should do.
[2021-07-04 22:00] VITALS: BP 156/74; PULSE 89; RESP 18; TEMP 36.2; O2SAT 97
[2021-07-05] MEDS: SIMVASTATIN 20 MG TABLET PO ×2 (02:04→20:33)
[2021-07-05 03:02] LABS: EDCOVIDSCREEN Negative (Negative)
[2021-07-05] MEDS: LEVOTHYROXINE SODIUM 75 MCG TABLET PO (05:51)
[2021-07-05] MEDS: SODIUM CHLORIDE 0.9% IV 1,000 ML 125 ML IV CONT ×2 (05:57→12:20)
[2021-07-05 06:00] VITALS: BP 155/89; PULSE 93; RESP 20; TEMP 36.3; O2SAT 96
[2021-07-05 07:37] LABS: Hematocrit 40.1 % (37.0-47.0); Hemoglobin 12.8 g/dL (12.0-15.0); Mean Corpuscular HGB Conc 31.9 g/dl (32-36); Mean Corpuscular Hemoglobin 29.6 pg (26-34); Mean Corpuscular Volume 92.8 fl (80-100); Mean Platelet Volume 9.7 fl (7.4-10.4); Platelet Count Result 401 k/mm3 (150-375); Red Blood Count 4.32 M/mm3 (4.2-5.4); Red Cell Distribution Width 14.8 % (11.5-14.5)
[2021-07-05 07:46] LABS: Anion Gap 8 mmol/L (8-16); Blood Urea Nitrogen 23 mg/dL (7-17); Calcium 8.8 mg/dL (8.4-10.2); Carbon Dioxide 21 mmol/L (22-30); Chloride 108 mmol/L (98-107); Estimated CRCL calculation 45 ml/min; Estimated Glomerular Filt Rate 60; Glucose 96 mg/dL (65-110); Potassium 3.5 mmol/L (3.4-5.0); Sodium 137 mmol/L (137-145)
[2021-07-05 08:00] VITALS: PULSE 85; RESP 14; O2SAT 98
[2021-07-05] MEDS: lisinopriL 10 MG TABLET PO (08:43)
[2021-07-05] MEDS: POTASSIUM CHLORIDE 20 MEQ TABLET.ER PO (08:43)
[2021-07-05] MEDS: ASPIRIN 325 MG ENTERIC TABLET PO (08:43)
--- NOTE | 2021-07-05 11:23 | PM.IMPN ---
Subjective Date/time seen: 07/05/21 11:23 Interval history: 81 years old female with past medical history of hypothyroidism hypertension MRSA infection in the past presented to the hospital with altered mental status was found to have elevated creatinine leukocytosis admitted for further evaluation and treatment Patient still confused slow to response Patient denies fever headache chest pain shortness of breath I am seeing the patient for altered mental status Exam Narrative: Alert Chest no wheeze crackles Abdomen nontender nondistended CVS S1 + S2 Neurology slow to respond to questions but respond appropriately Denies neck pain Moves all extremities Generalized weakness in all extremities but no focal weakness No sensory loss Objective Data Vital Signs Vital Signs: Vital Signs - 24 hr 07/04/21 16:52 07/04/21 18:38 07/04/21 20:33 Temperature 98.2 F Pulse Rate 119 H 84 98 Respiratory Rate 16 16 18 Blood Pressure 183/120 H 166/63 H 168/78 H Pulse Oximetry 98 99 99 07/04/21 22:00 07/05/21 06:00 Temperature 97.2 F L 97.3 F L Pulse Rate 89 93 Respiratory Rate 18 20 Blood Pressure 156/74 H 155/89 H Pulse Oximetry 97 96 Intake/Output Intake/Output: Intake & Output 07/02/21 07/03/21 07/04/21 07/05/21 23:59 23:59 23:59 23:59 Intake Total 1000 1200 Output Total 200 Balance 800 1200 Meds/Results Medications: Active Medications Generic Name Dose Route Start Last Admin Trade Name Freq PRN Reason Stop Dose Admin Acetaminophen 650 mg 07/04/21 19:08 Acetaminophen 325 Mg Tablet PO Q4H PRN Mild Pain (1-3) or Fever Aspirin 325 mg 07/05/21 09:00 07/05/21 08:43 Aspirin 325 Mg Enteric Tablet PO 325 mg DAILY GERONIMO Administration Docusate Sodium 100 mg 07/04/21 22:31 Docusate Sodium 100 Mg Capsule PO BID PRN Constipation Duloxetine HCl 60 mg 07/05/21 12:00 Duloxetine Hcl 60 Mg Capsule.Dr PO 1200 GERONIMO Sodium Chloride 1,000 mls @ 125 mls/hr 07/04/21 19:10 07/05/21 05:57 Normal Saline Iv IV CONT 125 mls/hr .Q8H GERONIMO Administration Cefepime HCl 2 gm in 50 mls @ 100 mls/hr 07/05/21 11:25 Maxipime 2 Gm/D5w 50 Ml IVPB Q12H [facility] Levothyroxine Sodium 75 mcg 07/05/21 06:30 07/05/21 05:51 Levothyroxine Sodium 75 Mcg Tablet PO 75 mcg DAILY@0630 [facility] Administration Lisinopril 10 mg 07/05/21 09:00 07/05/21 08:43 Lisinopril 10 Mg Tablet PO 10 mg DAILY GERONIMO Administration Miscellaneous Information 1 each 07/05/21 00:01 Linzess 72mg Nonformulary. Can Patient Use Home Supply? XX 08/04/21 00:00 CLARIFY [facility] Non-Formulary Medication 72 mcg 07/05/21 09:00 Linaclotide [Linzess] PO 08/04/21 08:59 DAILY [facility] Ondansetron HCl 4 mg 07/04/21 19:08 Ondansetron Inj 4 Mg/2 Ml Vial IV PUSH Q4H PRN Nausea Polyethylene Glycol 17 gm 07/04/21 22:31 Polyethylene Glycol 3350 17 Gm Powd.Pack PO QAM PRN Constipation Potassium Chloride 20 meq 07/05/21 08:00 07/05/21 08:43 Potassium Chloride 20 Meq Tablet.Er PO 20 meq DAILY@0800 [facility] Administration Simvastatin 20 mg 07/04/21 22:35 07/05/21 02:04 Simvastatin 20 Mg Tablet PO 20 mg HS [facility] Administration Vancomycin HCl 1 each 07/05/21 11:25 Vancomycin Pharmacist To Dose IVPB PER PROTOCOL [facility] Radiology Results: ITS Impressions Head CT 07/04/21 18:15 IMPRESSION: 1. No acute intracranial findings. 2. Chronic age related findings. Chest X-Ray 07/04/21 18:18 IMPRESSION: No acute cardiopulmonary findings. Labs Labs: Laboratory Results - last 24 hr 07/04/21 07/04/21 07/04/21 17:32 17:32 17:32 WBC 13.0 H RBC 4.47 Hgb 13.1 Hct 41.4 MCV 92.6 MCH 29.3 MCHC 31.6 L RDW 14.9 H Plt Count 430 H MPV 9.7 Immature Gran % (Auto) 0.4 Neut % (Auto) 57.1 Lymph % (Auto) 32.9 [place] % (Auto) 8.4 Eos % (Auto) 0.4 Baso % (Auto) 0.8
--- NOTE | 2021-07-05 11:26 | PM.IMPN ---
Progress Note: A&P Assessment and Plan (1) Acute metabolic encephalopathy: Code(s): G93.41 - Metabolic encephalopathy Status: Acute Assessment and Plan: Patient has acute encephalopathy likely combination of metabolic and toxic in nature. The patient definitely appears dehydrated with an elevated BUN from baseline and significant hyaline cast in her UA. However I muscle suspicious the patient may have been taking more medications than prescribed. I will hold the patient's trazodone, baclofen, [place] and gabapentin. Will continue the patient on IV fluid hydration with normal saline at 125 mL an hour. And will hold the patient's Lasix. the patient did receive 1 L of isotonic fluids in the ER Patient has leukocytosis Give empiric IV antibiotics Unlikely patient has meningitis Follow blood culture Will get ABG ammonia MRI of the brain EEG neurology consult (2) Dehydration: Code(s): E86.0 - Dehydration Status: Acute Assessment and Plan: Give IV fluid (3) Hypokalemia: Code(s): E87.6 - Hypokalemia Status: Acute Assessment and Plan: Replace Additional Plan Hypertension resume home medication Hypothyroidism check TSH Subjective Date/time seen: 07/05/21 11:26 Interval history: 81 years old female with past medical history of hypothyroidism hypertension MRSA infection presented to the hospital with altered mental status Patient still confused Patient denies fever headache chest pain shortness of breath I am seeing the patient for altered mental status Exam Narrative: Alert Chest no wheeze crackles Abdomen nontender nondistended CVS S1 + S2 Neurology nonfocal moved all extremity positive generalized weakness negative sensory loss Slow to response to question but respond appropriately Objective Data Vital Signs Vital Signs: Vital Signs - 24 hr 07/04/21 16:52 07/04/21 18:38 07/04/21 20:33 Temperature 98.2 F Pulse Rate 119 H 84 98 Respiratory Rate 16 16 18 Blood Pressure 183/120 H 166/63 H 168/78 H Pulse Oximetry 98 99 99 07/04/21 22:00 07/05/21 06:00 Temperature 97.2 F L 97.3 F L Pulse Rate 89 93 Respiratory Rate 18 20 Blood Pressure 156/74 H 155/89 H Pulse Oximetry 97 96 Intake/Output Intake/Output: Intake & Output 07/02/21 07/03/21 07/04/21 07/05/21 23:59 23:59 23:59 23:59 Intake Total 1000 1200 Output Total 200 Balance 800 1200 Meds/Results Medications: Active Medications Generic Name Dose Route Start Last Admin Trade Name Freq PRN Reason Stop Dose Admin Acetaminophen 650 mg 07/04/21 19:08 Acetaminophen 325 Mg Tablet PO Q4H PRN Mild Pain (1-3) or Fever Aspirin 325 mg 07/05/21 09:00 07/05/21 08:43 Aspirin 325 Mg Enteric Tablet PO 325 mg DAILY GERONIMO Administration Docusate Sodium 100 mg 07/04/21 22:31 Docusate Sodium 100 Mg Capsule PO BID PRN Constipation Duloxetine HCl 60 mg 07/05/21 12:00 Duloxetine Hcl 60 Mg Capsule.Dr PO 1200 GERONIMO Sodium Chloride 1,000 mls @ 125 mls/hr 07/04/21 19:10 07/05/21 05:57 Normal Saline Iv IV CONT 125 mls/hr .Q8H GERONIMO Administration Cefepime HCl 2 gm in 50 mls @ 100 mls/hr 07/05/21 11:25 Maxipime 2 Gm/D5w 50 Ml IVPB Q12H [facility] Levothyroxine Sodium 75 mcg 07/05/21 06:30 07/05/21 05:51 Levothyroxine Sodium 75 Mcg Tablet PO 75 mcg DAILY@0630 GERONIMO Administration Lisinopril 10 mg 07/05/21 09:00 07/05/21 08:43 Lisinopril 10 Mg Tablet PO 10 mg DAILY GERONIMO Administration Miscellaneous Information 1 each 07/05/21 00:01 Linzess 72mg Nonformulary. Can Patient Use Home Supply? XX 08/04/21 00:00 CLARIFY GERONIMO Non-Formulary Medication 72 mcg 07/05/21 09:00 Linaclotide [Linzess] PO 08/04/21 08:59 DAILY [facility] Ondansetron HCl 4 mg 07/04/21 19:08 Ondansetron Inj 4 Mg/2 Ml Vial IV PUSH Q4H PRN Nausea Polyethylene Glycol 17 gm 07/04/21 22:31 Polyethylene Glycol 3350 17 G
[2021-07-05 11:48] LABS: Alveolar/Arterial O2 Gradient 49.6 mmHg; Fractional Inspired Oxygen 21 %; HCO3 ABG 19.4 mEq/l (22.0-26.0); Oxygen Content ABG 17.2 %vol (16.0-22.0); Oxyhemoglobin 93.2 % THb (90.0-100.0); PCO2 ABG 30.6 mmHg (35.0-45.0); PO2 ABG 63.5 mmHg (80.0-100.0); PO2 FiO2 Ratio Arterial Blood 3.02 %; Total Hemoglobin 13.1 g/dL (12.0-18.0); pH ABG 7.419 (7.350-7.450)
[2021-07-05 11:50] LABS: Modified Allen's Test Pass; Site Drawn LEFT RADIAL
[2021-07-05 11:54] LABS: Ammonia < 9 umol/L (9-30)
[2021-07-05] MEDS: DULoxetine HCL 60 MG CAPSULE.DR PO (12:22)
[2021-07-05 13:47] LABS: Thyroid Stimulating Hormone Reflex 0.976 uIU/mL (0.465-4.68)
--- NOTE | 2021-07-05 13:59 | PC.NURSE ---
Pts box of home medications sent home with spouse. Notified spouse that bottle of Linzess empty. New bottle to be brought in to nurses station.
[2021-07-05 14:00] VITALS: BP 168/74; PULSE 85; RESP 14; TEMP 36.3; O2SAT 98
[2021-07-05] MEDS: GABAPENTIN 100 MG CAPSULE PO (16:30)
[2021-07-05 22:00] VITALS: BP 149/74; PULSE 90; RESP 16; TEMP 36.7; O2SAT 98
[2021-07-06] MEDS: SODIUM CHLORIDE 0.9% IV 1,000 ML 125 ML IV CONT (01:39)
[2021-07-06 06:00] VITALS: BP 154/79; PULSE 92; RESP 16; TEMP 37.2; O2SAT 99
[2021-07-06] MEDS: LEVOTHYROXINE SODIUM 75 MCG TABLET PO (06:15)
[2021-07-06] MEDS: ASPIRIN 325 MG ENTERIC TABLET PO (08:26)
[2021-07-06] MEDS: lisinopriL 10 MG TABLET PO (08:26)
[2021-07-06] MEDS: POTASSIUM CHLORIDE 20 MEQ TABLET.ER PO (08:26)
--- NOTE | 2021-07-06 09:42 | PM.IMPN ---
Progress Note: A&P Assessment and Plan (1) Acute metabolic encephalopathy: Code(s): G93.41 - Metabolic encephalopathy Status: Acute Assessment and Plan: Patient has acute encephalopathy likely combination of metabolic and toxic in nature. The patient definitely appears dehydrated with an elevated BUN from baseline and significant hyaline cast in her UA. However I muscle suspicious the patient may have been taking more medications than prescribed. I will hold the patient's trazodone, baclofen, [place] and gabapentin. Will continue the patient on IV fluid hydration with normal saline . And will hold the patient's Lasix. the patient did receive 1 L of isotonic fluids in the ER Patient has leukocytosis Give empiric IV antibiotics Unlikely patient has meningitis Follow blood culture Reviewed ABG ammonia MRI of the brain no significant finding other than chronic stroke Pending EEG neurology consult (2) Dehydration: Code(s): E86.0 - Dehydration Status: Acute Assessment and Plan: Status post IV fluid (3) Hypokalemia: Code(s): E87.6 - Hypokalemia Status: Acute Assessment and Plan: Replaced Additional Plan Hypertension resume home medication Hypothyroidism TSH Subjective Date/time seen: 07/06/21 09:42 Interval history: 81 years old female with past medical history of hypothyroidism hypertension MRSA infection presented to the hospital with altered mental status Patient still confused patient think this CT scan machine is in her room and there is Shuttered glass under her bed MRI of the brain negative for acute stroke Positive for chronic multiple strokes Blood culture pending EEG pending Neurology eval pending Patient denies fever headache chest pain shortness of breath I am seeing the patient for altered mental status Exam Narrative: More alert than yesterday but still confused Chest no wheeze crackles Abdomen nontender nondistended CVS S1 + S2 Neurology nonfocal moved all extremity positive generalized weakness negative sensory loss Slow to response to question but respond appropriately Objective Data Vital Signs Vital Signs: Vital Signs - 24 hr 07/05/21 14:00 07/05/21 22:00 07/06/21 06:00 Temperature 97.3 F L 98.1 F 99.0 F Pulse Rate 85 90 92 Respiratory Rate 14 16 16 Blood Pressure 168/74 H 149/74 H 154/79 H Pulse Oximetry 98 98 99 Intake/Output Intake/Output: Intake & Output 03/24/22 03/25/22 03/26/22 03/27/22 23:59 23:59 23:59 23:59 Intake Total 1000 3800 750 Output Total 200 Balance 800 3800 750 Meds/Results Medications: Active Medications Generic Name Dose Route Start Last Admin Trade Name Iveth PRN Reason Stop Dose Admin Acetaminophen 650 mg 07/04/21 19:08 Acetaminophen 325 Mg Tablet PO Q4H PRN Mild Pain (1-3) or Fever Aspirin 325 mg 07/05/21 09:00 07/06/21 08:26 Aspirin 325 Mg Enteric Tablet PO 325 mg DAILY GERONIMO Administration Docusate Sodium 100 mg 07/04/21 22:31 Docusate Sodium 100 Mg Capsule PO BID PRN Constipation Duloxetine HCl 60 mg 07/05/21 12:00 07/05/21 12:22 Duloxetine Hcl 60 Mg Capsule.Dr PO 60 mg 1200 GERONIMO Administration Gabapentin 100 mg 07/05/21 17:00 07/05/21 16:30 Gabapentin 100 Mg Capsule PO 100 mg BID GERONIMO Administration Sodium Chloride 1,000 mls @ 125 mls/hr 07/04/21 19:10 07/06/21 01:39 Normal Saline Iv IV CONT 125 mls/hr .Q8H GERONIMO Administration Cefepime HCl 2 gm in 50 mls @ 100 mls/hr 07/05/21 12:00 07/05/21 12:20 Maxipime 2 Gm/D5w 50 Ml IVPB 100 mls/hr Q24H GERONIMO Administration Vancomycin HCl 1,250 mg in 250 mls @ 200 mls/hr 07/05/21 13:00 07/05/21 14:34 Vancomycin 1,250 Mg/D5w 250 Ml IVPB 200 mls/hr Q24H GERONIMO Administration Levothyroxine Sodium 75 mcg 07/05/21 06:30 07/06/21 06:15 Levothyroxine Sodium 75 Mcg Tablet PO 75 mcg DAILY@0630 GERONIMO Administration Lisinopril 10 mg 07/05/21 09:0
[2021-07-06] MEDS: GABAPENTIN 100 MG CAPSULE PO ×2 (09:54→17:25)
[2021-07-06 10:55] LABS: Alanine Aminotransferase 16 U/L (4-35); Albumin Level 3.7 g/dL (3.5-5.1); Alkaline Phosphatase 37 U/L (38-126); Anion Gap 9 mmol/L (8-16); Aspartate Amino Transferase 36 U/L (14-36); Bilirubin,Total 1.5 mg/dL (0.2-1.3); Blood Urea Nitrogen 10 mg/dL (7-17); Calcium 8.6 mg/dL (8.4-10.2); Carbon Dioxide 19 mmol/L (22-30); Chloride 108 mmol/L (98-107); Estimated CRCL calculation 65 ml/min; Estimated Glomerular Filt Rate > 60; Glucose 93 mg/dL (65-110); Potassium 3.3 mmol/L (3.4-5.0); Sodium 136 mmol/L (137-145)
[2021-07-06 12:04] LABS: Basophils Absolute Auto 0.1 K/mm3 (0.0-0.1); Basophils Percent Auto 0.6 % (0.2-1.2); Eosinophils Absolute Auto 0.3 K/mm3 (0-0.3); Eosinophils Percent Auto 2.4 % (0-4.4); Hematocrit 38.2 % (37.0-47.0); Immature Granulocyte Absolute 0.06 K/mm3 (0.00-0.031); Immature Granulocyte Percent A 0.5 % (0-0.5); Lymphocytes Absolute Auto 2.43 K/mm3 (0.9-3.2); Lymphocytes Percent Auto 19.1 % (18.3-44.2); Mean Corpuscular HGB Conc 31.4 g/dl (32-36); Mean Corpuscular Hemoglobin 29.1 pg (26-34); Mean Corpuscular Volume 92.7 fl (80-100); Mean Platelet Volume 9.4 fl (7.4-10.4); Monocytes Percent Auto 7.6 % (2.6-8.5); Neutrophils Absolute Auto 8.9 K/mm3 (1.3-6.7); Neutrophils Percent Auto 69.8 % (45.5-73.1); Platelet Count Result 345 k/mm3 (150-375); Red Blood Count 4.12 M/mm3 (4.2-5.4); Red Cell Distribution Width 14.7 % (11.5-14.5); White Blood Count 12.7 K/mm3 (4.5-10.0)
[2021-07-06] MEDS: POTASSIUM CHLORIDE 20 MEQ TABLET 40 MEQ PO (12:31)
[2021-07-06] MEDS: DULoxetine HCL 60 MG CAPSULE.DR PO (12:32)
[2021-07-06 14:00] VITALS: BP 146/86; PULSE 86; RESP 18; TEMP 35.6; O2SAT 99
[2021-07-06] MEDS: SIMVASTATIN 20 MG TABLET PO (20:00)
[2021-07-06 21:40] VITALS: BP 154/95; PULSE 98; RESP 18; TEMP 36.2; O2SAT 90
[2021-07-07] MEDS: ACETAMINOPHEN 325 MG TABLET 650 MG PO ×2 (03:19→12:53)
[2021-07-07] MEDS: LEVOTHYROXINE SODIUM 75 MCG TABLET PO (05:59)
[2021-07-07 06:00] VITALS: BP 146/79; PULSE 92; RESP 18; TEMP 36.3; O2SAT 98
[2021-07-07 06:25] LABS: Basophils Absolute Auto 0.1 K/mm3 (0.0-0.1); Basophils Percent Auto 0.5 % (0.2-1.2); Eosinophils Absolute Auto 0.5 K/mm3 (0-0.3); Eosinophils Percent Auto 3.8 % (0-4.4); Hematocrit 36.9 % (37.0-47.0); Hemoglobin 11.7 g/dL (12.0-15.0); Immature Granulocyte Absolute 0.07 K/mm3 (0.00-0.031); Immature Granulocyte Percent A 0.5 % (0-0.5); Lymphocytes Absolute Auto 3.28 K/mm3 (0.9-3.2); Lymphocytes Percent Auto 24.2 % (18.3-44.2); Mean Corpuscular HGB Conc 31.7 g/dl (32-36); Mean Corpuscular Hemoglobin 29.5 pg (26-34); Mean Corpuscular Volume 92.9 fl (80-100); Mean Platelet Volume 9.8 fl (7.4-10.4); Monocytes Absolute Auto 1.2 K/mm3 (0.1-0.6); Monocytes Percent Auto 8.5 % (2.6-8.5); Neutrophils Absolute Auto 8.5 K/mm3 (1.3-6.7); Neutrophils Percent Auto 62.5 % (45.5-73.1); Platelet Count Result 355 k/mm3 (150-375); Red Blood Count 3.97 M/mm3 (4.2-5.4); Red Cell Distribution Width 14.7 % (11.5-14.5); White Blood Count 13.6 K/mm3 (4.5-10.0)
[2021-07-07 06:43] LABS: Alanine Aminotransferase 16 U/L (4-35); Albumin Level 3.7 g/dL (3.5-5.1); Alkaline Phosphatase 40 U/L (38-126); Anion Gap 9 mmol/L (8-16); Aspartate Amino Transferase 32 U/L (14-36); Bilirubin,Total 1.3 mg/dL (0.2-1.3); Blood Urea Nitrogen 8 mg/dL (7-17); Carbon Dioxide 21 mmol/L (22-30); Chloride 109 mmol/L (98-107); Estimated CRCL calculation 65 ml/min; Estimated Glomerular Filt Rate > 60; Glucose 97 mg/dL (65-110); Potassium 3.6 mmol/L (3.4-5.0); Sodium 139 mmol/L (137-145)
[2021-07-07] MEDS: GABAPENTIN 100 MG CAPSULE PO ×2 (09:44→17:50)
[2021-07-07] MEDS: ASPIRIN 325 MG ENTERIC TABLET PO (09:44)
[2021-07-07] MEDS: lisinopriL 10 MG TABLET PO (09:44)
[2021-07-07] MEDS: POTASSIUM CHLORIDE 20 MEQ TABLET.ER PO (09:44)
[2021-07-07] MEDS: DULoxetine HCL 60 MG CAPSULE.DR PO (12:55)
--- NOTE | 2021-07-07 13:51 | PM.IMPN ---
Progress Note: A&P Assessment and Plan (1) Acute metabolic encephalopathy: Code(s): G93.41 - Metabolic encephalopathy Status: Acute Assessment and Plan: Patient has acute encephalopathy likely combination of metabolic and toxic in nature. The patient definitely appears dehydrated with an elevated BUN from baseline and significant hyaline cast in her UA. However I muscle suspicious the patient may have been taking more medications than prescribed. I will hold the patient's trazodone, baclofen, [place] and gabapentin. Will continue the patient on IV fluid hydration with normal saline . And will hold the patient's Lasix. the patient did receive 1 L of isotonic fluids in the ER Patient has leukocytosis Give empiric IV antibiotics Unlikely patient has meningitis Follow blood culture Reviewed ABG ammonia MRI of the brain no significant finding other than chronic stroke Pending EEG read by Neurology. Unable to have neurology consult inpatient as neurologist is on vacation Patient is back to baseline. Will continue to hold sedating medications and will change times of administration and and reduce dose for discharge Started cefepime and vanomcyin due to leukocytosis (2) Dehydration: Code(s): E86.0 - Dehydration Status: Acute Assessment and Plan: Status post IV fluid (3) Hypokalemia: Code(s): E87.6 - Hypokalemia Status: Acute Assessment and Plan: Replaced (4) Elevated WBC count: Code(s): D72.829 - Elevated white blood cell count, unspecified Status: Acute Assessment and Plan: Started cefepime and vancomycin. Will follow cultures. Urine culture negative. CXR with no pneumonia. Patient follows with Hematology for workup for abnormal leukocytosis. Will check procalcitonin with AM labs. Subjective Date/time seen: Date of Service 07/07/21 1300 Patient says she feels much better. is concerned about the possibility of the medications she takes at home being the cause of her confusion. Patient denies taking more than prescribed of any of her medications. Review of Systems Neurologic: Denies confusion Exam Const: General: no acute distress Eyes: Sclera: sclerae normal Pupils: Equal, round and reactive pupils present EOM: EOMs intact bilaterally Neck: Neck: supple Resp: Effort & Inspection: normal respiratory effort Auscultation: clear to auscultation bilaterally Cardio: Rate: regular rate Rhythm: regular rhythm Heart sounds: no gallops, no murmurs and no rubs Neuro: Cognition (Neuro): normal cognition Speech: normal speech Other: Alert and oriented to person, place, situation and time Psych: Mental Status: mental status grossly normal Affect: normal affect Objective Data Vital Signs Vital Signs: Vital Signs - 24 hr 07/07/21 06:00 07/07/21 14:00 07/07/21 22:00 Temperature 97.3 F L 97.8 F 97.1 F L Pulse Rate 92 84 85 Respiratory Rate 18 14 18 Blood Pressure 146/79 H 152/86 H 120/63 Pulse Oximetry 98 98 93 Intake/Output Intake/Output: Intake & Output 07/05/21 07/06/21 07/07/21 07/08/21 23:59 23:59 23:59 23:59 Intake Total 4050 6700 2060 Output Total 1001 Balance 4050 5699 2060 Meds/Results Medications: Active Medications Generic Name Dose Route Start Last Admin Trade Name Freq PRN Reason Stop Dose Admin Acetaminophen 650 mg 07/04/21 19:08 07/08/21 00:27 Acetaminophen 325 Mg Tablet PO 650 mg Q4H PRN Administration Mild Pain (1-3) or Fever Aspirin 325 mg 07/05/21 09:00 07/07/21 09:44 Aspirin 325 Mg Enteric Tablet PO 325 mg DAILY GERONIMO Administration Docusate Sodium 100 mg 07/04/21 22:31 Docusate Sodium 100 Mg Capsule PO BID PRN Constipation Duloxetine HCl 60 mg 07/05/21 12:00 07/07/21 12:55 Duloxetine Hcl 60 Mg Capsule.Dr PO 60 mg 1200 GERONIMO Administration Gabapentin 100 mg 07/05/21 17:00 07/07/21 17:50 Gabapentin 100 Mg Capsule PO
[2021-07-07 14:00] VITALS: BP 152/86; PULSE 84; RESP 14; TEMP 36.6; O2SAT 98
--- NOTE | 2021-07-07 17:56 | P.NEURO_ITS ---
Neurology EEG Report General Information Date of Study: 07/07/21 TEST EEG DIAGNOSIS Altered mental status CONDITION OF RECORDING Awake and drowsy CLINICAL HISTORY Confusion after the patient mixed up some of her medications EEG DESCRIPTION Wakefulness and drowsiness were obtained. During wakefulness there was a posterior background of well-modulated, symmetrical low to moderate voltage, 4-5 Hz activity. During drowsiness there was a physiological slowing and symmetrical vertex sharp waves. Photic stimulation and hyperventilation were not obtained. IMPRESSION This EEG was abnormal due the presence of moderate diffuse background slowing. This EEG was indicative of the presence of moderate, bihemispheric cerebral dysfunction of the type seen most commonly in the setting of moderate toxico- metabolic encephalopathy. No epileptiform activity was present.
--- NOTE | 2021-07-07 18:21 | WPDNEUROLOGY ---
Neurology EEG Report TEST EEG DIAGNOSIS Altered mental status CONDITION OF RECORDING Wakefulness and drowsiness CLINICAL HISTORY Confusion after mixing up medications. EEG DESCRIPTION Wakefulness and drowsiness were obtained. During wakefulness there was a posterior background of well modulated, symmetrical , moderate voltage, 8-10 Hz activity and anterior background of low voltage faster frequencies. During drowsiness there was a physiologic, slowing and symmetrical vertex sharp waves. Photic stimulation and hyperventilation were not obtained. IMPRESSION This EEG is normal. There is no evidence of epileptiform activity or focal cerebral dysfunction.
[2021-07-07] MEDS: SIMVASTATIN 20 MG TABLET PO (20:58)
[2021-07-07 22:00] VITALS: BP 120/63; PULSE 85; RESP 18; TEMP 36.2; O2SAT 93
[2021-07-08] MEDS: ACETAMINOPHEN 325 MG TABLET 650 MG PO (00:27)
[2021-07-08 01:09] LABS: Vancomycin Trough 14.3 ug/mL (10.0-20.0)
[2021-07-08 02:24] VITALS: TEMP 36.2
[2021-07-08] MEDS: LEVOTHYROXINE SODIUM 75 MCG TABLET PO (05:50)
[2021-07-08 06:00] VITALS: BP 158/89; PULSE 82; RESP 18; TEMP 36.1; O2SAT 98
[2021-07-08 06:21] LABS: Basophils Absolute Auto 0.1 K/mm3 (0.0-0.1); Eosinophils Absolute Auto 0.7 K/mm3 (0-0.3); Eosinophils Percent Auto 5.8 % (0-4.4); Hematocrit 38.2 % (37.0-47.0); Immature Granulocyte Absolute 0.06 K/mm3 (0.00-0.031); Immature Granulocyte Percent A 0.5 % (0-0.5); Lymphocytes Absolute Auto 4.31 K/mm3 (0.9-3.2); Mean Corpuscular HGB Conc 31.4 g/dl (32-36); Mean Corpuscular Hemoglobin 29.3 pg (26-34); Mean Corpuscular Volume 93.4 fl (80-100); Mean Platelet Volume 9.9 fl (7.4-10.4); Monocytes Absolute Auto 1.1 K/mm3 (0.1-0.6); Monocytes Percent Auto 8.8 % (2.6-8.5); Neutrophils Absolute Auto 5.7 K/mm3 (1.3-6.7); Neutrophils Percent Auto 47.9 % (45.5-73.1); Platelet Count Result 378 k/mm3 (150-375); Red Blood Count 4.09 M/mm3 (4.2-5.4); Red Cell Distribution Width 14.9 % (11.5-14.5)
[2021-07-08 06:40] LABS: Alanine Aminotransferase 16 U/L (4-35); Albumin Level 3.8 g/dL (3.5-5.1); Alkaline Phosphatase 51 U/L (38-126); Anion Gap 8 mmol/L (8-16); Aspartate Amino Transferase 33 U/L (14-36); Bilirubin,Total 0.9 mg/dL (0.2-1.3); Blood Urea Nitrogen 11 mg/dL (7-17); Carbon Dioxide 24 mmol/L (22-30); Chloride 107 mmol/L (98-107); Estimated CRCL calculation 50 ml/min; Estimated Glomerular Filt Rate > 60; Glucose 97 mg/dL (65-110); Potassium 3.8 mmol/L (3.4-5.0); Sodium 139 mmol/L (137-145)
[2021-07-08 07:19] LABS: Procalcitonin 0.1 ng/mL
[2021-07-08] MEDS: POTASSIUM CHLORIDE 20 MEQ TABLET.ER PO (09:10)
[2021-07-08] MEDS: ASPIRIN 325 MG ENTERIC TABLET PO (09:10)
[2021-07-08] MEDS: lisinopriL 10 MG TABLET PO (09:10)
[2021-07-08] MEDS: GABAPENTIN 100 MG CAPSULE PO ×2 (09:10→17:13)
[2021-07-08] MEDS: DULoxetine HCL 60 MG CAPSULE.DR PO (13:14)
[2021-07-08 14:00] VITALS: BP 140/72; PULSE 74; RESP 18; TEMP 36.3; O2SAT 99
--- NOTE | 2021-07-08 18:40 | PM.DS ---
DS: Admitting Diagnosis Discharge Date 07/08/2021 Admitting Diagnosis Altered Mental Status DS: Discharge Diagnosis Discharge Diagnosis (1) Acute metabolic encephalopathy: Code(s): G93.41 - Metabolic encephalopathy Status: Acute Assessment and Plan: Patient had acute encephalopathy likely combination of metabolic and toxic in nature. Etiology likely due to multiple sedating medications plus worsened by the dehydration. Baclofen, [place] held during hospitalization. MRI of the brain no significant finding other than chronic stroke. BCX w/ no growth. UCX negative. EEG showed no seizure activity. Neurology consult not available at this time. Patient noted to have leukocytosis but has hx of leukocytosis worked up by Hematology. No signs of infection. Will follow up with hematology outpatient. Patient clinically improved and will be discharged to home with . (2) Dehydration: Code(s): E86.0 - Dehydration Status: Acute Assessment and Plan: Resolved. (3) Hypokalemia: Code(s): E87.6 - Hypokalemia Status: Acute Assessment and Plan: Replaced and resolved. (4) Elevated WBC count: Code(s): D72.829 - Elevated white blood cell count, unspecified Status: Acute Assessment and Plan: Started cefepime and vancomycin. Will follow cultures. Urine culture negative. CXR with no pneumonia. Patient follows with Hematology for workup for abnormal leukocytosis. Procalcitonin was equivocal with no overt signs or source for infection. Will discharge to home without antibiotics. DS: Summary Hospital Course Hospital Course: 81-year-old female with past medical history chronic pain, hypothyroidism and hypertension who presented to the ER with altered mental status. Her reports the patient began being confused 2 days ago. Her confusion was accompanied by onset of nausea. She was having multiple episodes of dry heaves. He was finally able to get her to drink some soda at which time she actually vomited. He reported that after she vomited on the she did not complain of any further nausea. The patient tells me that she was having diarrhea but her denies the patient having actually told him she was having episodes of diarrhea. MRI brain noted old stroke but no acute findings. Patient was afebrile with no growth on UCX or BCX. CXR was unremarkable. Patient had leukocytosis but later patient and reported patient has a history of leukocytosis of unknown etiology that has been worked up by Hematology. Patient was initially treated with broad spectrum antibiotics due to the AMS and leukocytosis but this was discontinued after discovering it was chronic. Sedating medications were held initially and then gabapentin and duloxetine were restarted. For discharge, baclofen and trazodone were discontinued. Also, potassium chloride started during hospitalization. This will need to be monitored by PCP after discharge as she also takes lisinopril. Home furosemide was restarted for discharge as well. Time Spent with Patient Time attestation: Total time spent providing and/or coordinating discharge services: Exam Narrative: GENERAL: NAD, cooperative HEENT: Normocephalic, atraumatic, anicteric NECK:Supple CV: Normal S1, S2, RRR, No MRG RESP: CTAB, Normal work of breathing. EXTREMITIES: Warm and well perfused, no clubbing, cyanosis, or edema. SKIN: warm, dry and intact. NEURO:Alert and oriented x 4. Appropriate. DS: Data Data Completed and Pending Labs on day of discharge: Labs from last 24 hours 07/08/21 07/08/21 07/08/21 05:48 05:48 05:48 WBC 12.0 H RBC 4.09 L Hgb 12.0 Hct 38.2 MCV 93.4 MCH 29.3 MCHC 31.4 L RDW 14.9 H Plt Count 378 H MPV 9.9 Immature Gran % (Auto) 0.5 Neut % (Auto) 47.9 Lymph % (Auto) 36.0 [place] % (Auto) 8.8 H Eos % (Auto) 5.8 H Baso % (Auto) 1.0 Lymph # (Auto)
--- NOTE | 2021-08-19 10:24 | PC.NURSE ---
Lizet left voicemail on 07/17/21 about home medications that were left behind at discharge. Patient has not returned phone call. Will dispose of medications.
== END 2021-07-08 18:55 | disposition home or self-care (01) | DRG 917 ==
LOC: ANHED 19:14 → ANH3MEDSUR 19:55
PROVIDERS: Emergency Medicine; Internal Medicine; Admitting Provider Internal Medicine; Emergency Provider Emergency Medicine; PCP Family Medicine; Visit Provider Family Medicine
DX: T50.991A Poisoning by other drugs, medicaments and biological substances, accidental (unintentional), initial encounter (principal); G92.8 Other toxic encephalopathy; E86.0 Dehydration; D72.829 Elevated white blood cell count, unspecified; E87.6 Hypokalemia; Z20.822 Contact with and (suspected) exposure to COVID-19; M19.90 Unspecified osteoarthritis, unspecified site; F41.8 Other specified anxiety disorders; I10 Essential (primary) hypertension; E78.5 Hyperlipidemia, unspecified; E03.9 Hypothyroidism, unspecified; G25.81 Restless legs syndrome; E55.9 Vitamin D deficiency, unspecified; R32 Unspecified urinary incontinence; G89.29 Other chronic pain; M54.9 Dorsalgia, unspecified; Z96.652 Presence of left artificial knee joint; Z90.49 Acquired absence of other specified parts of digestive tract; E66.9 Obesity, unspecified; Z68.33 Body mass index [BMI] 33.0-33.9, adult
CPT/HCPCS: 36415; 36600; 51701; 70450; 70553; 71045; 80048; 80053; 80202; 81001; 82140; 82805; 84145; 84443; 85025; 85027; 85610; 85730; 87040; 87086; 87426; 93005; 95816; 96361; 97110; 97162; 97165; 97535; 99285; A9270; A9577; C9803; G0378; J0692; J3370; J7030

== ENCOUNTER 2021-07-22 14:33 | Outpatient (CLI) | payer MEDICARE, SELFPAY ==
[2021-07-22 14:57] LABS: Basophils Absolute Auto 0.1 K/mm3 (0.0-0.1); Basophils Percent Auto 0.7 % (0.2-1.2); Eosinophils Absolute Auto 0.1 K/mm3 (0-0.3); Eosinophils Percent Auto 1.1 % (0-4.4); Hematocrit 47.5 % (37.0-47.0); Hemoglobin 14.2 g/dL (12.0-15.0); Immature Granulocyte Absolute 0.05 K/mm3 (0.00-0.031); Immature Granulocyte Percent A 0.4 % (0-0.5); Lymphocytes Absolute Auto 4.59 K/mm3 (0.9-3.2); Lymphocytes Percent Auto 34.7 % (18.3-44.2); Mean Corpuscular HGB Conc 29.9 g/dl (32-36); Mean Corpuscular Volume 96.9 fl (80-100); Mean Platelet Volume 9.1 fl (7.4-10.4); Monocytes Absolute Auto 0.7 K/mm3 (0.1-0.6); Monocytes Percent Auto 5.2 % (2.6-8.5); Neutrophils Absolute Auto 7.7 K/mm3 (1.3-6.7); Neutrophils Percent Auto 57.9 % (45.5-73.1); Platelet Count Result 521 k/mm3 (150-375); Red Cell Distribution Width 14.8 % (11.5-14.5); White Blood Count 13.2 K/mm3 (4.5-10.0)
[2021-07-22 15:24] LABS: Alanine Aminotransferase 15 U/L (4-35); Albumin Level 4.9 g/dL (3.5-5.1); Alkaline Phosphatase 49 U/L (38-126); Anion Gap 10 mmol/L (8-16); Aspartate Amino Transferase 30 U/L (14-36); Bilirubin,Total 0.9 mg/dL (0.2-1.3); Blood Urea Nitrogen 18 mg/dL (7-17); Calcium 9.9 mg/dL (8.4-10.2); Carbon Dioxide 26 mmol/L (22-30); Chloride 104 mmol/L (98-107); Estimated Glomerular Filt Rate 53; Glucose 106 mg/dL (65-110); Potassium 4.3 mmol/L (3.4-5.0); Sodium 140 mmol/L (137-145)
== END 2021-07-22 14:34 | disposition home or self-care (01) ==
LOC: ANHLAB 14:35
PROVIDERS: PCP Family Medicine; Visit Provider Internal Medicine Hematology & Oncology
DX: D72.829 Elevated white blood cell count, unspecified (principal)
CPT/HCPCS: 36415; 80053; 85025; 88184

== ENCOUNTER 2022-01-22 11:39 | Outpatient (CLI) | payer MEDICARE, SELFPAY ==
[2022-01-22 11:54] LABS: Basophils Absolute Auto 0.1 K/mm3 (0.0-0.1); Basophils Percent Auto 0.8 % (0.2-1.2); Eosinophils Absolute Auto 0.3 K/mm3 (0-0.3); Eosinophils Percent Auto 2.3 % (0-4.4); Hematocrit 46.4 % (37.0-47.0); Hemoglobin 14.5 g/dL (12.0-15.0); Immature Granulocyte Absolute 0.06 K/mm3 (0.00-0.031); Immature Granulocyte Percent A 0.5 % (0-0.5); Lymphocytes Absolute Auto 3.55 K/mm3 (0.9-3.2); Lymphocytes Percent Auto 31.6 % (18.3-44.2); Mean Corpuscular HGB Conc 31.3 g/dl (32-36); Mean Corpuscular Hemoglobin 29.4 pg (26-34); Mean Corpuscular Volume 94.1 fl (80-100); Mean Platelet Volume 9.5 fl (7.4-10.4); Monocytes Absolute Auto 0.9 K/mm3 (0.1-0.6); Monocytes Percent Auto 7.6 % (2.6-8.5); Neutrophils Absolute Auto 6.4 K/mm3 (1.3-6.7); Neutrophils Percent Auto 57.2 % (45.5-73.1); Platelet Count Result 407 k/mm3 (150-375); Red Blood Count 4.93 M/mm3 (4.2-5.4); Red Cell Distribution Width 13.8 % (11.5-14.5); White Blood Count 11.2 K/mm3 (4.5-10.0)
[2022-01-22 11:57] LABS: Blood Urea Nitrogen 24 mg/dL (8-26); Carbon Dioxide 26 mmol/L (22-30); Chloride 104 mmol/L (98-109); Estimated Glomerular Filt Rate 43; Glucose 100 mg/dL (70-105); Ionized Calcium (POC) 1.28 mmol/L (1.11-1.31); Potassium 3.9 mmol/L (3.5-4.9); Sodium 142 mmol/L (138-146)
[2022-01-22 13:26] LABS: Alanine Aminotransferase 17 U/L (6-35); Albumin Level 4.8 g/dL (3.5-5.1); Alkaline Phosphatase 52 U/L (38-126); Anion Gap 16 mmol/L (8-16); Aspartate Amino Transferase 25 U/L (14-36); Bilirubin,Total 0.9 mg/dL (0.2-1.3); Blood Urea Nitrogen 23 mg/dL (7-17); Calcium 10.1 mg/dL (8.4-10.2); Carbon Dioxide 23 mmol/L (22-30); Chloride 102 mmol/L (98-107); Estimated Glomerular Filt Rate 48; Glucose 97 mg/dL (65-110); Potassium 3.8 mmol/L (3.4-5.0); Sodium 141 mmol/L (137-145)
== END 2022-01-22 11:40 | disposition home or self-care (01) ==
LOC: ANHLAB 11:41
PROVIDERS: PCP Family Medicine; Visit Provider Internal Medicine Hematology & Oncology
DX: D72.829 Elevated white blood cell count, unspecified (principal)
CPT/HCPCS: 36415; 80047; 80053; 85025

== ENCOUNTER 2022-04-28 14:14 | Outpatient (CLI) | payer MEDICARE, SELFPAY ==
--- NOTE | ~2022-04-28 | MR_ITS ---
EXAMINATION: MR lumbar spine wo con DATE: 04/28/2022 15:06 INDICATION: Lumbar radiculopathy. TECHNIQUE: Magnetic resonance imaging (MRI) of the lumbar spine was performed without intravenous con trast. Sequences included sagittal T2-weighted FSE, sagittal T2-weighted FS FSE, sagittal T1-weighted FSE, and axial T2-weighted FSE. COMPARISON: None FINDINGS: There is 11 degrees dextroscoliosis of lumbar spine. Vertebral body heights are normal. The re is mildly decreased disc height at L2-L3, moderately decreased disc height at L3-L4, and severely decreased disc height at L4-L5 with endplate remodeling. The distal spinal cord signal intensity is n ormal. The conus medullaris is at T12. There are cysts in the kidneys measuring up to 2.6 cm on the l eft. The following disc levels are specifically discussed: L1-L2: The disc is bulging. There is moderate right and mild left facet joint osteoarthritis. There i s mild left neural foraminal stenosis. There is mild central canal stenosis. L2-L3: The disc is bulging. There is moderate right and severe left facet joint osteoarthritis. There is mild bilateral neural foraminal stenosis. There is mild central canal stenosis. L3-L4: The disc is bulging and has an annular fissure. There is severe right and moderate left facet joint osteoarthritis. There is mild right and moderate left neural foraminal stenosis. There is mild central canal stenosis with posterior decompression. L4-L5: The disc is bulging and has an annular fissure. There is mild right and severe left facet join t osteoarthritis. There is mild right and moderate left neural foraminal stenosis. There is mild cent ral canal stenosis. L5-S1: The disc does not extend beyond the endplate margin. There is severe bilateral facet joint ost eoarthritis. There is mild bilateral neural foraminal stenosis. There is no central canal stenosis. IMPRESSION: 1. Severe lumbar spondylosis. 2. Lumbar dextroscoliosis. Reviewed, dictated and finalized at location A. STITCHER
== END 2022-04-28 14:15 | disposition home or self-care (01) ==
PROVIDERS: PCP Family Medicine; Visit Provider Nurse Practitioner Family
DX: M47.26 Other spondylosis with radiculopathy, lumbar region (principal); M41.9 Scoliosis, unspecified
CPT/HCPCS: 72148

== ENCOUNTER 2022-09-24 13:02 | Outpatient (CLI) | payer MEDICARE, SELFPAY ==
[2022-09-24 13:20] LABS: Basophils Absolute Auto 0.1 K/mm3 (0.0-0.1); Eosinophils Absolute Auto 0.2 K/mm3 (0-0.3); Eosinophils Percent Auto 2.3 % (0-4.4); Hematocrit 41.6 % (37.0-47.0); Immature Granulocyte Absolute 0.03 K/mm3 (0.00-0.031); Immature Granulocyte Percent A 0.3 % (0-0.5); Lymphocytes Absolute Auto 2.66 K/mm3 (0.9-3.2); Lymphocytes Percent Auto 30.9 % (18.3-44.2); Mean Corpuscular HGB Conc 31.3 g/dl (32-36); Mean Corpuscular Hemoglobin 29.3 pg (26-34); Mean Corpuscular Volume 93.7 fl (80-100); Mean Platelet Volume 9.3 fl (7.4-10.4); Monocytes Absolute Auto 0.6 K/mm3 (0.1-0.6); Monocytes Percent Auto 7.4 % (2.6-8.5); Neutrophils Percent Auto 58.1 % (45.5-73.1); Platelet Count Result 371 k/mm3 (150-375); Red Blood Count 4.44 M/mm3 (4.2-5.4); Red Cell Distribution Width 14.8 % (11.5-14.5); White Blood Count 8.6 K/mm3 (4.5-10.0)
[2022-09-24 13:29] LABS: Blood Urea Nitrogen 22 mg/dL (8-26); Carbon Dioxide 23 mmol/L (22-30); Chloride 107 mmol/L (98-109); Estimated Glomerular Filt Rate > 60; Glucose 95 mg/dL (70-105); Ionized Calcium (POC) 1.24 mmol/L (1.11-1.31); Potassium 4.3 mmol/L (3.5-4.9); Sodium 143 mmol/L (138-146)
[2022-09-24 18:24] LABS: Alanine Aminotransferase 19 U/L (6-35); Albumin Level 4.4 g/dL (3.5-5.1); Alkaline Phosphatase 37 U/L (38-126); Anion Gap 12 mmol/L (8-16); Aspartate Amino Transferase 25 U/L (14-36); Bilirubin,Total 0.8 mg/dL (0.2-1.3); Blood Urea Nitrogen 22 mg/dL (7-17); Calcium 9.1 mg/dL (8.4-10.2); Carbon Dioxide 22 mmol/L (22-30); Chloride 107 mmol/L (98-107); Estimated Glomerular Filt Rate > 60; Glucose 92 mg/dL (65-110); Potassium 4.5 mmol/L (3.4-5.0); Sodium 141 mmol/L (137-145)
== END 2022-09-24 13:03 | disposition home or self-care (01) ==
PROVIDERS: PCP Family Medicine; Visit Provider Internal Medicine Hematology & Oncology
DX: D72.820 Lymphocytosis (symptomatic) (principal)
CPT/HCPCS: 36415; 80047; 80053; 85025

== ENCOUNTER 2023-02-26 13:06 | Outpatient (CLI) | payer MEDICARE, SELFPAY ==
--- NOTE | ~2023-02-26 | US_ITS ---
Renal-Bladder ultrasound Clinical History: Abnormal renal function studies Technique: Real-time sonographic imaging of the kidneys and urinary bladder was performed. Findings: The right kidney measures 11.4 cm in length and the left kidney measures 9.7 cm. There is n o hydronephrosis or renal calculus identified. Renal cortical echogenicity is within normal limits. N o solid renal mass lesion is identified. Small bilateral renal cysts are present. The urinary bladder is minimally distended at the time of this exam. No intraluminal echoes are ident ified. No abnormal wall thickening is seen. Impression: No significant abnormality seen. Reviewed, dictated and finalized at location . PHONE MAINTAINER Impression: No significant abnormality seen.
== END 2023-02-26 13:07 | disposition home or self-care (01) ==
PROVIDERS: PCP Family Medicine; Visit Provider Internal Medicine Nephrology
DX: R94.4 Abnormal results of kidney function studies (principal)
CPT/HCPCS: 76775

== ENCOUNTER 2023-05-05 13:45 | Outpatient (CLI) | payer MEDICARE, SELFPAY ==
--- NOTE | ~2023-05-05 | XR_ITS ---
EXAMINATION: XR foot LT 2V DATE: 05/05/2023 14:05 INDICATION: Left foot pain. TECHNIQUE: 2 views of left foot were obtained. COMPARISON: Left foot radiographs 01/25/2016 FINDINGS: Bone alignment is normal. There is ankylosis of the subtalar joint with a lag screw. There is fusion of talonavicular joint with 2 lag screws. There is fusion of calcaneocuboid joint with mult iple elicia. No fracture. There is moderate osteoarthritis of first metatarsophalangeal joint and mi ld osteoarthritis of some of the interphalangeal joints and midfoot joints. IMPRESSION: 1. Polyarticular osteoarthritis. 2. Fusion of calcaneus, cuboid, talus, and navicular. Reviewed, dictated and finalized at location E. NICAL SUPPORT REPRESENTATIVE
== END 2023-05-05 13:46 ==
PROVIDERS: PCP Family Medicine; Visit Provider Nurse Practitioner Family
DX: M19.072 Primary osteoarthritis, left ankle and foot (principal)
CPT/HCPCS: 73620

== ENCOUNTER 2023-08-12 14:01 | Outpatient (CLI) | payer MEDICARE, SELFPAY ==
--- NOTE | ~2023-08-12 | XR_ITS ---
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 No fracture or traumatic malalign ment. No soft tissue abnormality. 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 Reviewed, dictated and finalized at location B. 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
== END 2023-08-12 14:02 | disposition home or self-care (01) ==
PROVIDERS: PCP Family Medicine; Visit Provider Orthopaedic Surgery
DX: M19.012 Primary osteoarthritis, left shoulder (principal)
CPT/HCPCS: 73030

== ENCOUNTER 2023-08-27 13:27 | Outpatient (CLI) | payer MEDICARE, SELFPAY ==
[2023-08-27 19:17] LABS: Alanine Aminotransferase 16 U/L (6-35); Albumin Level 4.5 g/dL (3.5-5.1); Alkaline Phosphatase 46 U/L (38-126); Anion Gap 7 mmol/L (4-12); Aspartate Amino Transferase 29 U/L (14-36); Bilirubin,Total 0.5 mg/dL (0.2-1.3); Blood Urea Nitrogen 22 mg/dL (7-17); Calcium 10.2 mg/dL (8.4-10.2); Carbon Dioxide 32 mmol/L (22-30); Chloride 104 mmol/L (98-107); Estimated Glomerular Filt Rate 53; Glucose 93 mg/dL (65-110); Potassium 4.3 mmol/L (3.4-5.0); Sodium 143 mmol/L (137-145)
[2023-08-27 20:38] LABS: Basophils Absolute Auto 0.1 K/mm3 (0.0-0.1); Eosinophils Absolute Auto 0.2 K/mm3 (0-0.3); Eosinophils Percent Auto 1.7 % (0-4.4); Hematocrit 43.8 % (37.0-47.0); Hemoglobin 13.3 g/dL (12.0-15.0); Immature Granulocyte Absolute 0.07 K/mm3 (0.00-0.031); Immature Granulocyte Percent A 0.6 % (0-0.5); Lymphocytes Absolute Auto 3.61 K/mm3 (0.9-3.2); Lymphocytes Percent Auto 31.5 % (18.3-44.2); Mean Corpuscular HGB Conc 30.4 g/dl (32-36); Mean Corpuscular Hemoglobin 28.8 pg (26-34); Mean Corpuscular Volume 94.8 fl (80-100); Mean Platelet Volume 9.8 fl (7.4-10.4); Monocytes Absolute Auto 0.9 K/mm3 (0.1-0.6); Monocytes Percent Auto 7.4 % (2.6-8.5); Neutrophils Absolute Auto 6.6 K/mm3 (1.3-6.7); Neutrophils Percent Auto 57.8 % (45.5-73.1); Platelet Count Result 503 k/mm3 (150-375); Red Blood Count 4.62 M/mm3 (4.2-5.4); Red Cell Distribution Width 15.1 % (11.5-14.5); White Blood Count 11.5 K/mm3 (4.5-10.0)
== END 2023-08-27 13:28 | disposition home or self-care (01) ==
LOC: ANHGOSHLAB 13:29
PROVIDERS: PCP Family Medicine; Visit Provider Nurse Practitioner Family
DX: Z01.818 Encounter for other preprocedural examination (principal); G25.81 Restless legs syndrome
CPT/HCPCS: 36415; 80053; 85025

== ENCOUNTER 2023-09-14 13:50 | Outpatient (CLI) | payer MEDICARE, SELFPAY ==
--- NOTE | ~2023-09-14 | CT_ITS ---
EXAMINATION: CT shoulder LT wo con DATE: 09/14/2023 14:16 INDICATION: Left glenohumeral joint osteoarthritis. Preoperative planning. TECHNIQUE: Computed tomography (CT) of the left shoulder was performed without intravenous contrast. Automated exposure control and iterative reconstruction technique were employed. The dose-length prod uct was 487.90 mGy-cm. COMPARISON: Left shoulder radiographs 08/12/2023 FINDINGS: There is severe cervical spondylosis. There is severe acromioclavicular joint osteoarthriti s. There is advanced osteoarthritis of the glenohumeral joint including bone volume loss of the gleno id. There are airspace opacities in left lung lower lobe. Calcified left hilar lymph nodes are consis tent with old granulomatous disease. There is a small glenohumeral joint effusion with loose bodies. There is no asymmetric fatty atrophy of the rotator cuff muscle bellies. IMPRESSION: 1. Advanced left glenohumeral joint osteoarthritis including bone volume loss of the glenoid. 2. Small left glenohumeral joint effusion with loose bodies. 3. Airspace opacities in left lung lower lobe, consistent with atelectasis versus pneumonia. Reviewed, dictated and finalized at location A. IMPRESSION: 1. Advanced left glenohumeral joint osteoarthritis including bone volume loss o f the glenoid. 2. Small left glenohumeral joint effusion with loose bodies. 3. Airspace opacities in left lung lower lobe, consistent with atelectasis vers us pneumonia.
== END 2023-09-14 13:51 | disposition home or self-care (01) ==
LOC: ANHIMG 13:53
PROVIDERS: PCP Family Medicine; Visit Provider Orthopaedic Surgery
DX: Z01.818 Encounter for other preprocedural examination (principal); M19.012 Primary osteoarthritis, left shoulder; M85.812 Other specified disorders of bone density and structure, left shoulder; M25.412 Effusion, left shoulder; M24.012 Loose body in left shoulder; R91.8 Other nonspecific abnormal finding of lung field
CPT/HCPCS: 73200

== ENCOUNTER 2023-09-27 13:12 | Outpatient (CLI) | payer MEDICARE, SELFPAY ==
[2023-09-27 13:36] LABS: Basophils Absolute Auto 0.1 K/mm3 (0.0-0.1); Basophils Percent Auto 0.9 % (0.2-1.2); Eosinophils Absolute Auto 0.3 K/mm3 (0-0.3); Eosinophils Percent Auto 2.2 % (0-4.4); Hematocrit 43.2 % (37.0-47.0); Hemoglobin 13.4 g/dL (12.0-15.0); Immature Granulocyte Absolute 0.05 K/mm3 (0.00-0.031); Immature Granulocyte Percent A 0.4 % (0-0.5); Lymphocytes Absolute Auto 3.34 K/mm3 (0.9-3.2); Lymphocytes Percent Auto 29.5 % (18.3-44.2); Mean Corpuscular Hemoglobin 29.3 pg (26-34); Mean Corpuscular Volume 94.3 fl (80-100); Mean Platelet Volume 9.3 fl (7.4-10.4); Monocytes Absolute Auto 0.8 K/mm3 (0.1-0.6); Monocytes Percent Auto 7.2 % (2.6-8.5); Neutrophils Absolute Auto 6.8 K/mm3 (1.3-6.7); Neutrophils Percent Auto 59.8 % (45.5-73.1); Platelet Count Result 417 k/mm3 (150-375); Red Blood Count 4.58 M/mm3 (4.2-5.4); Red Cell Distribution Width 15.4 % (11.5-14.5); White Blood Count 11.3 K/mm3 (4.5-10.0)
[2023-09-27 13:42] LABS: Blood Urea Nitrogen 28 mg/dL (8-26); Carbon Dioxide 30 mmol/L (22-30); Chloride 103 mmol/L (98-109); Estimated Glomerular Filt Rate 43; Glucose 85 mg/dL (70-105); Ionized Calcium (POC) 1.26 mmol/L (1.11-1.31); Potassium 4.2 mmol/L (3.5-4.9); Sodium 142 mmol/L (138-146)
[2023-09-27 15:29] LABS: Alanine Aminotransferase 14 U/L (6-35); Albumin Level 4.7 g/dL (3.5-5.1); Alkaline Phosphatase 40 U/L (38-126); Anion Gap 9 mmol/L (4-12); Aspartate Amino Transferase 22 U/L (14-36); Bilirubin,Total 0.6 mg/dL (0.2-1.3); Blood Urea Nitrogen 29 mg/dL (7-17); CRP 0.6 mg/dL (<1.0); Calcium 10.2 mg/dL (8.4-10.2); Carbon Dioxide 27 mmol/L (22-30); Chloride 104 mmol/L (98-107); Estimated Glomerular Filt Rate 47; Glucose 84 mg/dL (65-110); Lactate Dehydrogenase 151 U/L (120-246); Potassium 4.2 mmol/L (3.4-5.0); Sodium 140 mmol/L (137-145)
[2023-09-27 15:50] LABS: Erythrocyte Sedimentation Rate 20 mm/hr (0-20)
== END 2023-09-27 13:13 | disposition home or self-care (01) ==
PROVIDERS: PCP Family Medicine; Visit Provider Internal Medicine Hematology & Oncology
DX: D72.829 Elevated white blood cell count, unspecified (principal)
CPT/HCPCS: 36415; 80047; 80053; 83615; 85025; 85652; 86140

== ENCOUNTER 2023-11-01 19:16 | Outpatient (NON) | payer MEDICARE, SELFPAY ==
[2023-11-03 10:04] LABS: Bacterial Vaginosis NEGATIVE (NEGATIVE)
== END 2023-11-01 19:17 | disposition home or self-care (01) ==
LOC: ANHLAB 19:45
PROVIDERS: PCP Family Medicine; Visit Provider Student in an Organized Health Care Education/Training Program
DX: N89.8 Other specified noninflammatory disorders of vagina (principal)
CPT/HCPCS: 81513

== ENCOUNTER 2023-11-16 12:38 | Emergency (ER) | payer MEDICARE, SELFPAY ==
[2023-11-16] VITALS (20 sets, daily range): BP systolic 107–151; BP diastolic 58–81; PULSE 72–106; RESP 18–19; TEMP 36.6; O2SAT 91–100
--- NOTE | ~2023-11-16 | CT_ITS ---
EXAMINATION: CT lumbar spine wo con DATE: 11/16/2023 14:51 INDICATION: Low back pain. Fall. TECHNIQUE: Computed tomography (CT) of the lumbar spine was performed without intravenous contrast. A utomated exposure control and iterative reconstruction technique were employed. The dose-length produ ct was 1232.91 mGy-cm. COMPARISON: CT abdomen and pelvis 02/01/2021 FINDINGS: There are cysts in left kidney measuring up to 3.0 cm. There is an 18 mm hyperdense mass of left kidney. There is 13 degrees dextroscoliosis of lumbar spine. There is a burst fracture of L1 wi th 1/5 loss of height and retropulsion of bone 3 mm into central spinal canal. There is mildly decrea sed disc height at L2-L3 and L3-L4 and severely decreased disc height at L4-L5. The following disc le vels are specifically discussed: L1-L2: The disc does not extend beyond the endplate margin. There is severe right and mild left facet joint osteoarthritis. There is no neural foraminal stenosis. There is no central canal stenosis. L2-L3: The disc is bulging. There is severe bilateral facet joint osteoarthritis. There is mild bilat eral neural foraminal stenosis. There is mild central canal stenosis. L3-L4: The disc is bulging. There is severe bilateral facet joint osteoarthritis. There is mild bilat eral neural foraminal stenosis. There is mild central canal stenosis. L4-L5: The disc is bulging. There is moderate right and severe left facet joint osteoarthritis. There is mild right and moderate left neural foraminal stenosis. There is mild central canal stenosis. L5-S1: The disc does not extend beyond the endplate margin. There is severe bilateral facet joint ost eoarthritis. There is mild bilateral neural foraminal stenosis. There is no central canal stenosis. IMPRESSION: 1. Acute versus subacute L1 burst fracture. 2. Severe lumbar spondylosis. 3. Lumbar dextroscoliosis. 4. 18 mm hyperdense mass in left kidney, which may be a hemorrhagic cyst or less likely a neoplasm. A bdomen CT without and with contrast is recommended. Reviewed, dictated and finalized at location A. IMPRESSION: 1. Acute versus subacute L1 burst fracture. 2. Severe lumbar spondylosis. 3. Lumbar dextroscoliosis. 4. 18 mm hyperdense mass in left kidney, which may be a hemorrhagic cyst or les s likely a neoplasm. Abdomen CT without and with contrast is recommended.
--- NOTE | ~2023-11-16 | XR_ITS ---
EXAMINATION: XR pelvis 1-2V DATE: 11/16/2023 14:49 INDICATION: Right hip pain. Fall. TECHNIQUE: An anteroposterior view of the pelvis was obtained. COMPARISON: Lumbar spine radiographs 03/02/2019 FINDINGS: There is lumbar levoscoliosis and severe spondylosis. No fracture. There is moderate osteoa rthritis of the hips. Osteitis pubis is noted. IMPRESSION: 1. Moderate osteoarthritis of the hips. Reviewed, dictated and finalized at location A.
--- NOTE | ~2023-11-16 | XR_ITS ---
EXAMINATION: XR humerus LT DATE: 11/16/2023 14:48 INDICATION: Left humerus pain. TECHNIQUE: 2 views of left humerus on 4 radiographs were obtained. COMPARISON: Left shoulder radiographs 08/12/2023 FINDINGS: Bone alignment is normal. No fracture. There is severe osteoarthritis of glenohumeral joint and mild osteoarthritis of acromioclavicular joint. There is mild calcific tendinitis of the rotator cuff. IMPRESSION: 1. Polyarticular osteoarthritis. 2. Mild calcific tendinitis of the rotator cuff. Reviewed, dictated and finalized at location A.
[2023-11-16] MEDS: ACETAMINOPHEN 500 MG TABLET 1000 MG PO (15:02)
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
[2023-11-16] MEDS: oxyCODONE/ACETAMINOPHEN (*CRX) 5-325 MG TABLET 1 TABLET PO (16:17)
== END 2023-11-16 18:07 | disposition home or self-care (01) ==
PROVIDERS: Emergency Provider Preventive Medicine Aerospace Medicine; PCP Family Medicine
DX: S32.011A Stable burst fracture of first lumbar vertebra, initial encounter for closed fracture (principal); M54.50 Low back pain, unspecified; E03.9 Hypothyroidism, unspecified; I12.9 Hypertensive chronic kidney disease with stage 1 through stage 4 chronic kidney disease, or unspecified chronic kidney disease; N18.30 Chronic kidney disease, stage 3 unspecified; W01.0XXA Fall on same level from slipping, tripping and stumbling without subsequent striking against object, initial encounter
CPT/HCPCS: 72131; 72170; 73060; 99284; A9270

== ENCOUNTER 2023-12-23 13:54 | Outpatient (CLI) | payer MEDICARE, SELFPAY ==
--- NOTE | ~2023-12-23 | CT_ITS ---
Non-contrast CT scan of the Abdomen Clinical indication: Other specified disorder of kidney and ureter Technique: 2.5 mm axial scans were obtained through the abdomen with prior to and following intraven ous administration of 100 cc of Omnipaque 350 contrast material. Dose reduction technique was used on this scan by utilizing automated exposure control and iterative reconstruction technique. The dose-l ength product (DLP) was 1875.13 mGy-cm. COMPARISON: 02/01/2021 Findings: Images through the lung bases reveal calcified left basilar granuloma. Multiple benign bilateral renal cysts are present. No suspicious renal lesion identified. There are calcified hepatic and splenic granulomas. Cholecystectomy clips are present. The pancreas a nd adrenals appear normal. There are atherosclerotic calcifications of the aorta. . Visualized bowel loops are unremarkable. No ascites Impression: Benign bilateral renal cysts. No suspicious renal lesion identified. Reviewed, dictated and finalized at [facility]. Impression: Benign bilateral renal cysts. No suspicious renal lesion identified.
[2023-12-23 14:25] LABS: Estimated Glomerular Filt Rate 53
== END 2023-12-23 13:55 | disposition home or self-care (01) ==
PROVIDERS: PCP Family Medicine; Visit Provider Family Medicine
DX: N28.1 Cyst of kidney, acquired (principal)
CPT/HCPCS: 74170; Q9967

== ENCOUNTER 2024-01-26 13:52 | Outpatient (CLI) | payer MEDICARE, SELFPAY ==
--- NOTE | 2024-01-26 14:02 | ECG_ITS ---
Test Date: 2024-01-26 14:16:07 Measurements Intervals Ferrum Rate: 76 P: -4 ND: 189 QRS: -16 QRSD: 90 T: 24 QT: 370 QTc: 417 Interpretive Statements SINUS RHYTHM LOW QRS VOLTAGE IN PRECORDIAL LEADS [QRS DEFLECTION < 1.0 mV IN CHEST LEADS] VOLTAGE CRITERIA FOR LVH [MEETS CRITERIA IN ONE OF: R(aVL), S(V1), R(V5), R(V5/V6)+S(V1)] INCOMPLETE RIGHT BUNDLE BRANCH BLOCK WARNING: DATA QUALITY MAY AFFECT INTERPRETATION No previous ECG available for comparison Electronically Signed On 01-26-2024 14:58:50 CDT by Nicole Jon M.D.
== END 2024-01-26 13:53 | disposition home or self-care (01) ==
PROVIDERS: PCP Family Medicine; Visit Provider Orthopaedic Surgery
DX: I10 Essential (primary) hypertension (principal)
CPT/HCPCS: 93005

== ENCOUNTER 2024-03-29 09:02 | Outpatient (CLI) | payer MEDICARE, SELFPAY ==
[2024-03-29 10:42] LABS: Basophils Absolute Auto 0.1 K/mm3 (0.0-0.1); Basophils Percent Auto 0.7 % (0.2-1.2); Eosinophils Absolute Auto 0.4 K/mm3 (0-0.3); Eosinophils Percent Auto 3.6 % (0-4.4); Hematocrit 40.8 % (37.0-47.0); Hemoglobin 12.5 g/dL (12.0-15.0); Immature Granulocyte Absolute 0.04 K/mm3 (0.00-0.031); Immature Granulocyte Percent A 0.4 % (0-0.5); Lymphocytes Absolute Auto 3.24 K/mm3 (0.9-3.2); Lymphocytes Percent Auto 30.3 % (18.3-44.2); Mean Corpuscular HGB Conc 30.6 g/dl (32-36); Mean Corpuscular Hemoglobin 29.6 pg (26-34); Mean Corpuscular Volume 96.7 fl (80-100); Monocytes Absolute Auto 0.8 K/mm3 (0.1-0.6); Monocytes Percent Auto 7.6 % (2.6-8.5); Neutrophils Absolute Auto 6.2 K/mm3 (1.3-6.7); Neutrophils Percent Auto 57.4 % (45.5-73.1); Platelet Count Result 382 k/mm3 (150-375); Red Blood Count 4.22 M/mm3 (4.2-5.4); Red Cell Distribution Width 14.9 % (11.5-14.5); White Blood Count 10.7 K/mm3 (4.5-10.0)
[2024-03-29 10:46] LABS: Anion Gap 4 mmol/L (4-12); Blood Urea Nitrogen 19 mg/dL (7-17); Carbon Dioxide 30 mmol/L (22-30); Chloride 105 mmol/L (98-107); Estimated Glomerular Filt Rate 60; Glucose 89 mg/dL (65-110); Potassium 4.6 mmol/L (3.4-5.0); Sodium 139 mmol/L (137-145)
[2024-03-29 11:00] LABS: INR 0.9; Prothrombin Time 12.6 Seconds (11.1-14.7)
[2024-03-29 11:56] LABS: MRSA (PCR) NOT DETECTED (NOT DETECTE)
== END 2024-03-29 09:03 | disposition home or self-care (01) ==
LOC: ANHSURGERY 09:06
PROVIDERS: Anesthesiology; PCP Family Medicine; Visit Provider Orthopaedic Surgery
DX: Z01.818 Encounter for other preprocedural examination (principal); M19.012 Primary osteoarthritis, left shoulder; N18.31 Chronic kidney disease, stage 3a
CPT/HCPCS: 36415; 80048; 85025; 85610; 85730; 87641

== ENCOUNTER 2024-04-24 00:35 | Day surgery (SDC) | payer MEDICARE, SELFPAY ==
[2024-03-29 09:04] VITALS: BP 128/84; PULSE 84; RESP 16; TEMP 37; O2SAT 96
[2024-03-29 09:21] VITALS: BMI 32.9
--- NOTE | 2024-03-29 09:38 | PC.NURSE ---
Report to the Outpatient Waiting Room, entrance under the green pavilion located off [facility], at time ___10:00AM____ on date ___04/24/23____. Planned Procedure Time: ___12:00PM .? Time changes happen often and if your time is changed the preop area will call you the afternoon before. - You and your visitor will be asked to self-screen and do not enter if you have any COVID symptoms. Please call surgeon if you need to reschedule. - A mask is optional within the hospital at this time. Patients may have clear liquids (water, carbonated beverages, clear teas, apple juice) until 3 hours prior to surgery with a maximum of 20 ounces. - No food from midnight until time of surgery and no smoking. This includes no chewing gum, candy or mints. Take only the following medications with a SIP of water on the morning of surgery: DULOXETINE, LEVOTHYROXINE. MAY TAKE HYDROCODONE NEEDED FOR PAIN__ DO NOT STOP ANY OF YOUR OTHER PRESCRIPTION MEDICATIONS PRIOR TO SURGERY EXCEPT THE FOLLOWING Medications to discontinue per physician ____HOLD ALL VITAMINS & SUPPLEMENTS 3 DAYS PRE-OP PER ANESTHESIA Date to take last dose 04/20/23 Please no make-up, nail kyrgyz, hairspray, perfume, deodorant, or body powder the day of surgery.? No jewelry (including any body piercings) or valuables the day of surgery, leave them at home.? Please take a shower or bath the night before, or the morning of, surgery with an antibacterial soap.? Wear comfortable, loose fitting clothing.? Children are encouraged to wear pajamas. - Jewelry must be removed prior to entering the operating room.? Rings and piercings that are not removed may be cut off. - The hospital will not accept responsibility for valuables.? - Please leave all valuables, including medications, at home the day of surgery. If you are going home after surgery, a licensed package delivery driver must drive you home.? - NO public transportation without another adult if you receive anesthesia. - We recommend that an adult stay with you for 24 hours following discharge. - We also recommend that you do not drive, make important decision, drink alcoholic beverages, or take any drugs that were not prescribed by your health care provider for at least 24 hours after your discharge time. Follow any additional instructions given to you from your surgeon. Telephone instructions given to ____PATIENT and asked if any additional questions and then verbalized understanding. Patient advised to call surgeon office or pre surgery nurse liaison [phone] if any additional questions.
[2024-04-24] VITALS (14 sets, daily range): BP systolic 128–175; BP diastolic 73–92; PULSE 89–102; RESP 14–21; TEMP 36.1–37.1; O2SAT 90–100
--- NOTE | ~2024-04-24 | XR_ITS ---
EXAMINATION: XR shoulder LT min 2V DATE: 04/24/2024 14:57 INDICATION: Left shoulder arthroplasty. Postop. TECHNIQUE: 2 views of left shoulder were obtained. COMPARISON: Left humerus radiographs 11/16/23 FINDINGS: There is a reverse ythw-obu-myofuz total left shoulder arthroplasty in near-anatomic alignm ent. No fracture. There is mild acromioclavicular joint osteoarthritis. IMPRESSION: 1. Reverse evgg-xyg-dxfvgu total left shoulder arthroplasty in near-anatomic alignment. Reviewed, dictated and finalized at location A. TABLE BUNCHER IMPRESSION: 1. Reverse nuoa-zdj-eyyfvp total left shoulder arthroplasty in near-anatomic al ignment.
[2024-04-24] MEDS: LACTATED RINGERS 1,000 ML 30 ML IV CONT ×2 (10:30→14:44)
[2024-04-24] MEDS: TRANEXAMIC ACID 1,000MG/ISO100 1,000 MG/100 ML BAG 200 MG IVPB (10:35)
[2024-04-24] MEDS: ACETAMINOPHEN 500 MG TABLET 1000 MG PO (10:39)
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
--- NOTE | 2024-04-24 12:10 | WPDHPUPDATE1 ---
History and Physical Update Update Date/Time: 04/24/24 12:10 History and Physical has been reviewed, including an updated exam of the patient. There are NO changes in the patient's condition. Risks, benefits, and alternatives have been discussed and questions answered. Patient agrees to proceed with procedure.
[2024-04-24] MEDS: ceFAZolin 2 GM/D5W 50 ML 2 GM/50 ML BAG IVPB ×2 (12:23→20:57)
[2024-04-24] MEDS: SODIUM CHLORIDE 0.9% IV 37.7 ML, MORPHINE SULFATE INJ (*CRX) 2 MG, ROPivacaine HCL 1% 2... INFILTRATE (13:09)
[2024-04-24] MEDS: VANCOMYCIN HCL 1,000 MG VIAL 1000 MG TOPICAL (13:23)
[2024-04-24] MEDS: fentaNYL CITRATE INJ (*CRX) 100 MCG/2 ML VIAL 25 MCG IV PUSH ×3 (14:58→15:27)
--- NOTE | 2024-04-24 16:41 | W.PM.PROC2 ---
Procedure Note - Detailed Date of Procedure 04/24/24 Pre-op Diagnosis Primary OA left shoulder Post-op Diagnosis Same Procedure Performed Reverse total shoulder arthroplasty, left Surgeon Reynold Nolan MD Anesthesia General Findings Advanced glenohumeral arthritis. Moderate stiffness. 3D preoperative planning demonstrated 3? inclination, 19? retroversion. 15 degree augmented base plate utilized rotated to the 2:30 position. Description of Procedure The patient was given an interscalene block in the preoperative area. Preoperative antibiotics were given. The patient was transferred to the operating room and a general anesthetic was administered. The beach chair position was used at 45 degrees. All bony prominences were padded. The head was carefully stabilized on the [facility] head of academic technology. A sterile prep and drape was performed in the usual manner with ChloraPrep. A longitudinal incision was created at the anterior shoulder just lateral to the deltopectoral interval. Hydrogen peroxide was placed on the incision and then rinsed after one minute. Careful dissection was performed to expose the interval and protect the cephalic vein. The vein was retracted medially. The upper border of the pectoralis was minimally released. Anterior circumflex vessel branches were suture ligated. The biceps was released for later tenodesis. A subscapularis tenotomy was performed. The inferior capsule was released, exposing the humeral head. The large inferior humeral head osteophyte was removed. Care was taken to stay on bone to protect the axillary nerve. The neck anteversion and inclination were carefully assessed. The anatomic head cut was taken with the oscillating saw. Approximately 25? retroversion and 132 degree inclination. This matched the anatomic alignment very nicely. A cut protector was placed. The cut protector was placed, and attention was turned to the glenoid. Retractors were placed. Releases were carried out for exposure. The subscapularis was mobilized, the inferior capsule and long head of triceps released, and the superior and middle glenohumeral ligaments released as well. Labral tissue was resected as needed. Version and inclination were corrected according to preoperative templating. The sizing template was used to assess the baseplate position low on the glenoid, with an approximate 15 degrees correction of retroversion and 3 degrees of inclination. A guide pin was placed. Minimal reaming was used to accomplish a flat surface without violating the subchondral bone. The boss was drilled, and the real component was impacted into position. Supplemental locking screws were placed centrally, superiorly, and inferiorly. The glenosphere was impacted into the taper. The guide pin was placed at the humerus, central drilling performed, and the broach trial inserted. The proximal humerus was reamed for the inset component. The humeral components were trialed. The real humeral stem, tray, and insert were impacted into position. The shoulder was copiously irrigated periodically with pulsatile lavage. The shoulder was reduced and stability confirmed. 1 gram of Vancomycin powder was placed in the joint. The biceps tenodesis was incorporated with the pectoralis tendon repair. The remaining tissue was closed with 2-0 Vicryl, 3-0 Stratafix and 4-0 Stratafix, and steri-strips. A sterile silver occlusive dressing and shoulder immobilizer were placed. The patient was transferred to the recovery room. Implants Shoulder [employer]ations reverse TSA size 0 stem. +3 polyethylene insert. 15 augmented baseplate. 33+3 mm glenosphere. Estimated Blood Loss 200 Drains No Pathology None sent Complications No immediate complications Condition Stable Disposition PACU [facility] Billing Surgery - Charge Forward: Surgery Billing
--- NOTE | 2024-04-24 18:15 | PC.NURSE ---
This patient, Nikia East, was admitted to 3 Med Surg Room 322-02. Patient/family oriented to hospital policies and general routines including ID bracelet, bed and alarms, visiting hours, pain management, procedures, bathroom and other care routines, personal items, smoking policy, room service/diet, and visiting hours. Information on how to activate the Rapid Response Team has been discussed. Patient/Family are encouraged to report perceived risks to care and to ask questions if they do not understand what they are told or what they should do.
[2024-04-24] MEDS: SODIUM CHLORIDE 0.9% IV 1,000 ML 125 ML IV CONT (18:24)
[2024-04-24] MEDS: FAMOTIDINE 20 MG TABLET PO (20:57)
[2024-04-24] MEDS: SIMVASTATIN 20 MG TABLET PO (20:57)
[2024-04-24] MEDS: ASPIRIN 81 MG ENTERIC TABLET PO (20:57)
[2024-04-24] MEDS: oxyCODONE/ACETAMINOPHEN (*CRX) 10-325 MG TABLET 1 TAB PO (23:31)
[2024-04-25 00:04] VITALS: BP 128/63; PULSE 97; RESP 20; TEMP 36.6; O2SAT 95
[2024-04-25 04:47] VITALS: BP 129/67; PULSE 97; RESP 20; TEMP 36.5; O2SAT 99
[2024-04-25] MEDS: ceFAZolin 2 GM/D5W 50 ML 2 GM/50 ML BAG IVPB ×2 (05:31→12:02)
[2024-04-25] MEDS: LEVOTHYROXINE SODIUM 75 MCG TABLET PO (05:31)
[2024-04-25] MEDS: oxyCODONE/ACETAMINOPHEN (*CRX) 10-325 MG TABLET 1 TAB PO (05:35)
--- NOTE | 2024-04-25 07:51 | P.DS_ITS ---
DS: Admitting Diagnosis Discharge Date 04/25/24 Admitting Diagnosis Shoulder arthritis. DS: Discharge Diagnosis Discharge Diagnosis (1) Status post reverse total arthroplasty of left shoulder: Code(s): Z96.612 - Presence of left artificial shoulder joint Status: Acute Assessment and Plan: Postop day 1: Left Reverse total shoulder arthroplasty. Patient tolerated procedure well. No complications. Pain manageable with pain medication. No numbness or tingling. We had a lengthy discussion regarding postoperative wound care, limitations, expectations, and exercises. Patient shows good understanding. She has had initial physical therapy and is tolerating it well. DVT prophylaxis: 81 mg baby aspirin b.i.d. for 14 days. Pain medication: Percocet. Patient has followup appointment with Dr. Nolan in 3 weeks. DS: Summary Hospital Course Hospital Course: has had initial PT/OT and tolerating it well. Status at Discharge Functional status at discharge: independent ambulation Overall status at discharge: patient is progressing back to baseline Time Spent with Patient Time attestation: Total time spent providing and/or coordinating discharge services: Exam Narrative: Overweight 83 y/o Female. Resting comfortably in chair. Wearing sling. Dressing dry and intact with no drainage. Mild swelling. Mild ecchymosis. No erythema. No hematoma. Range of motion limited due to pain. Calf nontender. Neurologic status intact. No varicosities. Distal pulses palpable. DS: Data Data Completed and Pending Labs on day of discharge: Labs from last 24 hours 04/24/24 10:16 Blood Type O Positive Antibody Screen Negative Discharge Plan Discharge Patient Disposition: Home, Self-Care Discharge Instructions: See green instruction sheets Patient Language: Estonian Stand Alone Forms: General Discharge Instructions Follow-up/Referrals: Shantel Kuhn PA [Physician Marketing Team Lead] - Discharge Medications: New aspirin 81 mg tablet,delayed release (DR/EC) 81 mg PO BID 14 Days Qty: 28 0RF oxycodone-acetaminophen 5-325 mg tablet 1 - 2 tablet PO Q4-6H PRN (Reason: pain) 7 Days Qty: 30 0RF Continued gabapentin 100 mg capsule 100 mg PO BID Rx Instructions: 2 capsules omeprazole 20 mg capsule,delayed release(DR/EC) 20 mg PO DAILY Qty: 90 2RF furosemide 20 mg tablet 20 mg PO DAILY PRN (Reason: edema) clotrimazole 1 % cream 1 applic topical Q12H Qty: 30 0RF duloxetine 60 mg capsule,delayed release(DR/EC) 60 mg PO QNOON Qty: 90 1RF ropinirole 1 mg tablet 1 mg PO BID Qty: 180 1RF ergocalciferol (vitamin D2) 1,250 mcg (50,000 unit) capsule 1,250 mcg PO WEEKLY Qty: 12 1RF cyanocobalamin (vitamin B-12) 1,000 mcg tablet, sublingual 1,000 mcg sublingual DAILY Qty: 90 1RF levothyroxine 75 mcg tablet 75 mcg PO DAILY Qty: 90 1RF simvastatin 20 mg tablet 20 mg PO QHS Qty: 90 1RF lisinopril 10 mg tablet 10 mg PO DAILY Qty: 90 1RF Held hydrocodone-acetaminophen 10-325 mg tablet 1 tablet PO Q6H PRN (Reason: pain) Hold Instructions: Resume on 05/08/24. Hold while taking Oxycodone.
[2024-04-25 07:53] LABS: Basophils Percent Auto 0.3 % (0.2-1.2); Eosinophils Percent Auto 0.1 % (0-4.4); Hematocrit 36.2 % (37.0-47.0); Hemoglobin 11.4 g/dL (12.0-15.0); Immature Granulocyte Absolute 0.07 K/mm3 (0.00-0.031); Immature Granulocyte Percent A 0.5 % (0-0.5); Lymphocytes Absolute Auto 1.88 K/mm3 (0.9-3.2); Lymphocytes Percent Auto 12.5 % (18.3-44.2); Mean Corpuscular HGB Conc 31.5 g/dl (32-36); Mean Corpuscular Hemoglobin 29.7 pg (26-34); Mean Corpuscular Volume 94.3 fl (80-100); Monocytes Absolute Auto 1.6 K/mm3 (0.1-0.6); Monocytes Percent Auto 10.3 % (2.6-8.5); Neutrophils Absolute Auto 11.4 K/mm3 (1.3-6.7); Neutrophils Percent Auto 76.3 % (45.5-73.1); Platelet Count Result 343 k/mm3 (150-375); Red Blood Count 3.84 M/mm3 (4.2-5.4); Red Cell Distribution Width 15.4 % (11.5-14.5)
[2024-04-25] MEDS: FAMOTIDINE 20 MG TABLET PO (08:06)
[2024-04-25] MEDS: ASPIRIN 81 MG ENTERIC TABLET PO (08:06)
[2024-04-25] MEDS: SENNA/DOCUSATE SODIUM TABLET 2 TAB PO (08:06)
[2024-04-25] MEDS: rOPINIRole HCL 1 MG TABLET PO (08:06)
[2024-04-25] MEDS: lisinopriL 10 MG TABLET PO (08:06)
[2024-04-25] MEDS: PANTOPRAZOLE 40 MG TABLET PO (08:07)
[2024-04-25] MEDS: polyethylene glycoL 3350 17 GM POWD.PACK PO (08:07)
[2024-04-25] MEDS: ERGOCALCIFEROL 50,000 UNITS CAPSULE 50000 UNITS PO (08:14)
[2024-04-25 08:29] LABS: Anion Gap 6 mmol/L (4-12); Blood Urea Nitrogen 20 mg/dL (7-17); Calcium 8.7 mg/dL (8.4-10.2); Carbon Dioxide 28 mmol/L (22-30); Chloride 103 mmol/L (98-107); Estimated CRCL calculation 51 ml/min; Estimated Glomerular Filt Rate > 60; Glucose 104 mg/dL (65-110); Sodium 137 mmol/L (137-145)
[2024-04-25] MEDS: oxyCODONE/ACETAMINOPHEN (*CRX) 5-325 MG TABLET 1 TABLET PO (10:14)
[2024-04-25 10:21] VITALS: BP 105/43; PULSE 103; RESP 20; TEMP 36.6; O2SAT 99
[2024-04-25] MEDS: ACETAMINOPHEN 325 MG TABLET 650 MG PO (12:02)
[2024-04-25] MEDS: DULoxetine HCL 60 MG CAPSULE.DR PO (12:02)
== END 2024-04-25 14:10 | disposition home or self-care (01) ==
LOC: ANHSURGERY 12:41 → ANH3MEDSUR 17:40
PROVIDERS: Physician Assistant Surgical; PCP Family Medicine; Visit Provider Orthopaedic Surgery
PROC: (CPT 23472; principal; 2024-04-24 12:00)
DX: M19.012 Primary osteoarthritis, left shoulder (principal); M25.712 Osteophyte, left shoulder; E78.5 Hyperlipidemia, unspecified; I12.9 Hypertensive chronic kidney disease with stage 1 through stage 4 chronic kidney disease, or unspecified chronic kidney disease; N18.31 Chronic kidney disease, stage 3a; E03.9 Hypothyroidism, unspecified; G25.81 Restless legs syndrome; G47.00 Insomnia, unspecified; F41.8 Other specified anxiety disorders; E53.8 Deficiency of other specified B group vitamins; N39.3 Stress incontinence (female) (male); M17.11 Unilateral primary osteoarthritis, right knee; E55.9 Vitamin D deficiency, unspecified; M43.06 Spondylolysis, lumbar region; G89.29 Other chronic pain; M54.9 Dorsalgia, unspecified; E66.9 Obesity, unspecified; Z68.32 Body mass index [BMI] 32.0-32.9, adult; Z79.891 Long term (current) use of opiate analgesic; Z98.890 Other specified postprocedural states; Z90.49 Acquired absence of other specified parts of digestive tract; Z98.1 Arthrodesis status; Z87.19 Personal history of other diseases of the digestive system; Z85.6 Personal history of leukemia; Z80.0 Family history of malignant neoplasm of digestive organs; Z80.3 Family history of malignant neoplasm of breast
CPT/HCPCS: 23472; 36415; 73030; 80048; 85025; 86850; 86900; 86901; 97110; 97161; 97165; 97535; A4565; A9270; C1776; J0171; J0690; J1100; J1171; J1885; J2003; J2270; J2405; J2704; J2795; J3010; J3370; J7030; J7120

== ENCOUNTER 2024-11-04 11:07 | Outpatient (CLI) | payer MEDICARE, SELFPAY ==
--- NOTE | ~2024-11-04 | MR_ITS ---
MRI of the lumbar spine Clinical History: Radiculopathy Technique: Axial T2-weighted images, and sagittal T1-weighted, T2-weighted, and and T2 fat-sat images were acquired. COMPARISON: 04/28/2022 Findings: There is moderate chronic compression fracture deformity of L1, new from prior exam, with n o marrow edema seen currently. No other fracture or subluxation identified. No suspicious bone marrow signal abnormality seen. And T12-L1, there is retropulsion of the L1 vertebral body. There is no lor canal stenosis. There i s mild facet arthropathy. There is moderate to advanced right neural foraminal narrowing. Left neural foramen preserved. At L1-L2, there is minimal disc bulge. No spinal canal stenosis or neural foraminal narrowing evident . At L2-L3, there is mild disc bulge with mild facet hypertrophy. No spinal canal stenosis or definite neural foraminal narrowing. At L3-L4, there is degenerative disc narrowing with minimal disc bulge and moderate facet arthropathy . No central canal stenosis. There is severe left neural foraminal narrowing and mild right neural fo raminal narrowing. At L4-L5, there is advanced degenerative disc narrowing. There is disc bulge with moderate to advance d facet arthropathy. There is left lateral recess stenosis with severe left neural foraminal narrowin g. There is mild to moderate right neural foraminal narrowing. At L5-S1, there is no significant disc bulge or herniation. There is moderate to advanced facet arthr opathy. No central canal stenosis or neural foraminal narrowing. Paravertebral soft tissues are unremarkable. Impression: Moderate degenerative spondylosis from L3 through S1, as detailed above. Chronic L1 compression deformity. Reviewed, dictated and finalized at [facility]. Impression: Moderate degenerative spondylosis from L3 through S1, as detailed above. Chronic L1 compression deformity.
== END 2024-11-04 11:08 | disposition home or self-care (01) ==
LOC: MICIMG 11:08
PROVIDERS: PCP Family Medicine; Visit Provider Nurse Practitioner Family
DX: M47.26 Other spondylosis with radiculopathy, lumbar region (principal)
CPT/HCPCS: 72148

== ENCOUNTER 2025-02-09 12:48 | Outpatient (CLI) | payer MEDICARE, SELFPAY ==
--- NOTE | ~2025-02-09 | CT_ITS ---
EXAMINATION: CT abdomen pelvis wo/w con DATE: 02/09/2025 13:45 INDICATION: Flank pain, unspecified side. TECHNIQUE: Computed tomography (CT) of the abdomen and pelvis was performed without and with intravenous contrast using a total of 130 mL Omnipaque-350 intravenous contrast with a double-bolus technique for simultaneous opacification of the renal parenchyma and renal collecting system. Automated exposure control and iterative reconstruction technique were employed. The dose- length product was 2763.46 mGy-cm. COMPARISON: CT abdomen 12/23/2023 FINDINGS: The visualized portions of the lung bases demonstrate mild atelectasis. A calcified left lung nodule is consistent with old granulomatous disease. No pleural effusion. The heart size is normal. No pericardial effusion. Calcifications in the liver and spleen are consistent with old granulomatous disease. There are changes of cholecystectomy. The pancreas and adrenal glands are normal. There are cysts in the kidneys measuring up to 3.5 cm on the left. There is no urolithiasis. The ureters are well opacified and are normal. The bladder is normal. Pelvic floor dysfunction is noted. There is diverticulosis of the colon without evidence of diverticulitis. The appendix is not visualized. There are no dilated loops of bowel. There are no pathologically enlarged lymph nodes. There is no free intraperitoneal fluid. There is severe lumbar spondylosis. 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 IMPRESSION: 1. No specific etiology for the patient's symptoms. Reviewed, dictated and finalized at location E.
--- OUTSIDE RECORDS SUMMARY | 2025-02-09 12:53 | XMS_ITS | Clinical Summary ---
Author Organization [facility] Address [address] [place] [address] Care Team Providers Care Relocation Counselor Name Role Phone Malathi Landeros MD Primary Care Provider Allergies No known active allergies Medications DULoxetine (CYMBALTA) 60 mg Capsule, Delayed Release(E.C.) Take 60 mg by mouth daily. 09/30/2018 Active furosemide (LASIX) 20 mg tablet Take 20 mg by mouth daily. 10/11/2018 Active gabapentin (NEURONTIN) 100 mg capsule Take 100 mg by mouth 2 times daily. 09/13/2018 Active levothyroxine 75 mcg tablet Take 75 mcg by mouth. Active lisinopriL (PRINIVIL) 10 mg tablet Take 10 mg by mouth daily. 09/06/2018 Active simvastatin (ZOCOR) 20 mg tablet Take 20 mg by mouth daily. 09/06/2018 Active rOPINIRole (REQUIP) 1 mg tablet TAKE 1 TABLET BY MOUTH EVERY DAY AT BEDTIME 05/19/2021 Active HYDROcodone-onesimo taminophen (NORCO) 10-325 mg Tablet Take 1 Tablet by mouth every 6 hours as needed for Pain, Moderate. 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 Resolved Problems Problem Noted Date Diagnosed Date Resolved Date Leukocytosis (leucocytosis) 04/14/2021 07/31/2021 Family History Medical History Relation Name Comments Parkinson's Disease Brother Cancer Father Relation Name Status Comments Brother Daughter 1 Alive Daughter 2 Alive Daughter 3 Alive Father Mother Sister 1 Alive Sister 2 Alive Son 1 Alive Son 2 Alive Social History Tobacco Use Types Packs/Day Years Used Date Smoking Tobacco: Never Smokeless Tobacco: Never Tobacco Cessation:Counseling Given: Not Answered Alcohol Use Standard Drinks/Week Comments Never 0 (1 standard drink = 0.6 oz pur e alcohol) Comments Unknown Sex and Gender Information Value Date Recorded Sex Assigned at Not on file Legal Sex Female 9:08 AM CDT Gender Identity Not on file Sexual Orientation Not on file Last Filed Vital Signs Vital Sign Reading Time Taken Comments Blood Pressure 133/85 09/27/2023 1:35 PM CDT Pulse 102 09/27/2023 1:35 PM CDT Temperature 36.1 C (96.9 F) 09/27/2023 1:35 PM CDT Respiratory Rate 16 09/27/2023 1:35 PM CDT Oxygen Saturation 93% 09/27/2023 1:35 PM CDT Inhaled Oxygen Concentration - - Weight 85.8 kg (189 lb 3.2 oz) 09/27/2023 1:35 P M CDT Height 160 cm (5' 3) 01/22/2022 1:11 PM CDT Body Mass Index 33.52 01/22/2022 1:11 PM CDT Plan of Treatment Health Maintenance Due Date Last Done Comments DTAP/TDAP/TD VACCINES (1 - Tdap) [birth year]21/1959 PNEUMOCOCCAL VACCINE 50+ YEARS (1 of 1 - PCV) 06/20/18 91 ZOSTER VACCINE (1 of 2) 1990 OSTEOPOROSIS SCREENING 2005 RSV VACCINE (60+ or ) (1 - 1-dose 75+ series) 06/21/2015 INFLUENZA VACCINE (#1) 2024 Insurance Care Teams Relocation Counselor Relationship Specialty Start Date End Date Malathi Landeros MD [address] [place] [id number] PCP - General Family Practice 04/14/21
--- OUTSIDE RECORDS SUMMARY | 2025-02-09 12:53 | XMS_ITS | Clinical Summary ---
Author Organization [facility] Address [address] [place] [address] Care Team Providers Care Early Childhood Teacher Assistant Name Role Phone Dunia Hartmann MD Primary Care Pro vider Allergies No known active allergies Medications levothyroxine 75 MCG tablet Take 75 mcg by mouth every morning. Active hydrocodone-onesimo taminophen 10-325 MG tablet Take 1 tablet by mouth every 6 (six) hours as needed for Pain. Active simvastatin 20 MG tablet Take 20 mg by mouth daily. Active trazodone 100 MG tabletIndicatio ns:takes 2 tabs at bedtime Take 100 mg by mouth nightly at bedtime. Indications: takes 2 tabs at bedtime Active furosemide 20 MG tablet Take 20 mg by mouth daily. Active duloxetine 60 MG capsule Take 60 mg by mouth daily. Active ropinirole 1 MG tablet Take 1 mg by mouth 3 (three) times daily. Active gabapentin 100 MG capsule Take 100 mg by mouth 2 (two) times daily. Active aspirin EC 325 MG tablet 325 mg daily. Active lisinopril 10 MG tablet Take 10 mg by mouth daily. Active Social History Tobacco Use Types Packs/Day Years Used Date Smoking Tobacco: Never Smokeless Tobacco: Never Comments No Sex and Gender Information Value Date Recorded Sex Assigned at Not on file Legal Sex Female 9:28 AM MILLWRIGHT Gender Identity Not on file Sexual Orientation Not on file Last Filed Vital Signs Vital Sign Reading Time Taken Comments Blood Pressure 135/81 06/05/2019 7:31 AM MILLWRIGHT Pulse 81 06/05/2019 7:31 AM MILLWRIGHT Temperature 37.2 C (99 F) 06/05/2019 7:31 AM MILLWRIGHT Respiratory Rate 16 06/05/2019 7:31 AM MILLWRIGHT Oxygen Saturation 95% 06/05/2019 7:31 AM MILLWRIGHT Inhaled Oxygen Concentration - - Weight 89.8 kg (198 lb) 06/01/2019 8:39 AM MILLWRIGHT Height 162.6 cm (5' 4) 06/01/2019 8:39 AM MILLWRIGHT Body Mass Index 33.99 06/01/2019 8:39 AM MILLWRIGHT Plan of Treatment Health Maintenance Due Date Last Done Comments DTaP, Tdap and Td Vaccines ( 1 - Tdap) [birth year]21/1959 Pneumococcal Vaccine: 50+ Ye ars (1 of 1 - PCV) 1990 Zoster Vaccines (1 of 2) 1990 Annual Medicare Wellness Visit 2005 Dexa Scan (General) 2005 RSV Immunization or 60+ Years (1 - 1-dose 75+ series) 06/21/2015 COVID-19 Vaccine (2024-2 6 season) 2024 Influenza Adult (#1) 2025 Hepatitis A Vaccines Aged Out No long er eligible based on patient's age to complete this topic Meningococcal B Vaccine Aged Out No l onger eligible based on patient's age to complete this topic Meningococcal Vaccine Aged Out No kalpana bayron eligible based on patient's age to complete this topic RSV Immunizations Under 20 Months Aged Out No longer eligible based on patient's age to complete this topic Medical Devices Implanted Type Area Supply Planner Device Identifier Shelf Expiration Date Model / Serial / Lot Iol [employer] Zcboo - [id number] Implanted:Qty: 1 on 03/22/2019 by Greyson Barry MD at [facility] Lens Left: Eye [employer] 07/16/2022 ZCB00 / [id number] / Iol [place] [employer] Zcboo - [id number] Implanted:Qty: 1 on 06/05/2019 by Greyson Barry MD at [facility] Lens Right: Eye [employer] 12/08/2021 ZCB00 / [id number] / Aleksey Aleksey Left: Foot Screw Screw Left: Foot Insurance [employer] MEDICARE Care Teams Early Childhood Teacher Assistant Relationship Specialty Start Date End Date Dunia Hartmann MD [address] [place] [address] PCP - General FAMILY PRACTICE 03/15/19
[2025-02-10 06:31] LABS: Estimated Glomerular Filt Rate 53
== END 2025-02-09 12:49 | disposition home or self-care (01) ==
PROVIDERS: PCP Family Medicine; Visit Provider Internal Medicine Nephrology
DX: R10.A0 Flank pain, unspecified side (principal); N18.31 Chronic kidney disease, stage 3a
CPT/HCPCS: 74178; Q9967